=== PATIENT | male | born 1950 | race Caucasian/White ===

== ENCOUNTER 2017-03-25 08:55 | Day surgery (SDC) | payer MEDICARE, OTHER ==
--- NOTE | 2017-03-25 08:21 | HP ---
PROCEDURE DATE: 03/25/17 HISTORY OF PRESENT ILLNESS: Patient is a 66 y/o with history of locally advanced colon cancer status post resection in the past. He has had some other treatments as well. Now, he is not using the port over the several years. It is not functioning optimally anyway and desires removal. PAST MEDICAL HISTORY: Diabetes, he had colon cancer. CURRENT MEDICATIONS: Lisinopril, Januvia, metformin. ALLERGIES: NKDA. PAST SURGICAL HISTORY: Had laparotomy. Resection for advanced colon cancer multiple loops of bowel originally and then later had recurrence and had resection. Also had hernia repair and colonoscopy. Also, had some lung surgery in the past. FAMILY HISTORY: Cancer, diabetes. SOCIAL HISTORY: No smoking or alcohol abuse currently. REVIEW OF SYSTEMS: 12 systems reviewed pertinent for as noted above. No chest pain or palpitations currently. Other systems negative or noncontributory other than above and per admission assessment. PHYSICAL EXAMINATION: GENERAL: No acute distress. HEENT: Sclerae nonicteric. NECK: No JVD. CHEST: Equal excursion. Nonlabored breathing. CVS: Regular rate and rhythm. ABDOMEN: Soft. No peritoneal signs. EXTREMITIES: No significant edema. NEURO: Alert, moving extremities symmetrically. No gross motor deficits noted. IMPRESSION: 1. UNDESIRED PORT. Desires removal as he is no longer using. Feel he is a candidate for removal. Risks and benefits explained in detail, but not limited to, bleeding; infection; small risk of hematoma or seroma formation; general risks of anesthesia or sedation. He also understands in rare cases, the catheter becomes too scarred in to remove and it is possible to tie off the catheter and remove the port if the catheter does not easily pull free. He understands. Will proceed with outpatient Port-a-Cath removal.
[~2017-03-25 08:55] MED LIST: XYLOCAINE 1% HCL 20 ML MDV ONE
[2017-03-25] MEDS ORDERED: VERSED 5 MG/5 ML IV ONE (08:56)
[2017-03-25] MEDS ORDERED: DEMEROL 50 MG IJ ONE (08:56)
[2017-03-25] MEDS ORDERED: Sodium Chloride 0.9% 1000 ML 1,000 ML IV SCH (09:00)
[2017-03-25] MEDS ORDERED: CEFAZOLIN 2 GM-D5W BAG** 2 GM/50 ML ML IV SCH (09:00)
[2017-03-25] MEDS ORDERED: CEFAZOLIN 2 GM-D5W BAG** 2 GM/50 ML ML IV ONE (09:11)
[2017-03-25] MEDS ORDERED: Sodium Chloride 0.9% 1000 ML 1,000 ML ONE (09:12)
[2017-03-25 12:19] VITALS: BP 127/74; PULSE 74; O2SAT 96
--- NOTE | 2017-03-26 08:43 | OP ---
SURGERY DATE/TIME: 03/25/2017 1037 PREOPERATIVE DIAGNOSIS: History of colon cancer and no longer using Port-A-Cath and desires for removal. POSTOPERATIVE DIAGNOSIS: History of colon cancer and no longer using Port-A-Cath and desires for removal. PROCEDURE: Removal of tunnel Port-A-Cath. SURGEON: Dr. Osvaldo Wolfe. ANESTHESIA: IV sedation IV Demerol and Versed, 1% lidocaine local. ESTIMATED BLOOD LOSS: Minimal. INDICATIONS: As noted above. Risks and benefits explained in detail and not limited to and consent obtained. DESCRIPTION OF PROCEDURE AND FINDINGS: The patient is taken to the operating room. Continuous pulse oximetry and blood pressure monitoring. No disagreement with planned procedure. He was incrementally sedated with IV Demerol and Versed. The chest is prepped and draped in usual sterile fashion. 1% lidocaine local infiltrated in field pattern around. Transverse incision made through the old scar. Dissection carried down. Prolene sutures removed. The port and catheter removed intact and passed off. The tunnel track was closed with 3-0 Vicryl. Fibrous pocket closed with 3-0 Vicryl, subcu closed with 3-0 Vicryl, skin closed with 4-0 Vicryl. Steri-Strips and sterile dressing applied. The patient tolerated the procedure well. There were no immediate complications. Findings discussed with the family out in the waiting area.
== END 2017-03-25 11:55 | disposition home or self-care (01) ==
LOC: SDC 08:55
PROVIDERS: ATTEND Surgery
PROC: 0JPT0XZ Removal of Tunneled Vascular Access Device from Trunk Subcutaneous Tissue and Fascia, Open Approach (ICD-10-PCS; principal; 2017-03-25)
DX: Z85.038 Personal history of other malignant neoplasm of large intestine (principal); Z90.49 Acquired absence of other specified parts of digestive tract; E11.9 Type 2 diabetes mellitus without complications; Z79.4 Long term (current) use of insulin; Z79.899 Other long term (current) drug therapy
CPT/HCPCS: 82962; J0690; J2175; J2250

== ENCOUNTER 2018-06-27 06:02 | Day surgery (SDC) | payer MEDICARE, OTHER ==
[~2018-06-27 06:02] MED LIST changes: +Lactated Ringers 1,000 ML IV SCH; -XYLOCAINE 1% HCL 20 ML MDV ONE
[2018-06-27] MEDS ORDERED: Ketamine HCl 50 MG/ML IV ONE (06:03)
[2018-06-27] MEDS ORDERED: DIPRIVAN 200 MG/20 ML IV ONE (06:03)
[2018-06-27 08:51] VITALS: PULSE 92
[2018-06-27 09:01] VITALS: O2SAT 99
--- NOTE | 2018-06-27 09:01 | OP ---
SURGERY DATE/TIME: 06/27/2018 0714 PREOPERATIVE DIAGNOSIS: History of colon cancer, previous right hemicolectomy. POSTOPERATIVE DIAGNOSIS: Mild diverticulosis. Normal colon otherwise status post partial right hemicolectomy. PROCEDURE: Colonoscopy. SURGEON: Dr. Auguste. ANESTHESIA: MAC. Medications given by anesthesia department. HISTORY: The patient is a 68 year-old white male who presents now for surveillance examination. He reports having had colon cancer 20 years ago. He was appraised of the risks of the procedure including the risk of perforation, phlebitis, untoward reaction to medication, bleeding and missed lesions. The patient verbalized his understanding and desired to have the procedure performed. DESCRIPTION OF PROCEDURE: The patient was given the medications by the anesthesia department. He had continuous pulse oximetry, ECG monitoring, intermittent blood pressure monitoring and tidal CO2 monitoring during the examination. He was placed in the left lateral decubitus position. A digital rectal examination was performed and revealed normal anal sphincter tone, no masses and normal prostate. The flexible Olympus pediatric colonoscope was used to intubate the rectum. A view of the colon was developed to the anastomotic site of the right colon. Upon insertion and withdrawal were noted scattered small diverticula to the left colon. No other mucosal lesions being encountered the scope was removed from the patient who tolerated the procedure well and was sent back to OP recovery in good condition. The prep was noted to be fair.
[2018-06-27 09:03] VITALS: BP 123/80
== END 2018-06-27 08:45 | disposition home or self-care (01) ==
LOC: SDC 06:02
PROVIDERS: ATTEND Family Medicine
DX: K57.90 Diverticulosis of intestine, part unspecified, without perforation or abscess without bleeding (principal); Z90.49 Acquired absence of other specified parts of digestive tract; Z85.038 Personal history of other malignant neoplasm of large intestine; I10 Essential (primary) hypertension; E11.9 Type 2 diabetes mellitus without complications
CPT/HCPCS: 82962; 94250; 99100; J2704

== ENCOUNTER 2018-07-10 11:50 | Inpatient (IN) | payer MEDICARE, OTHER ==
[2018-07-10] MEDS ORDERED: Sodium Chloride 0.9% 1000 ML 1,000 ML IV STA ×2 (12:35→13:31)
--- NOTE | 2018-07-10 12:42 | ERPHSYRPT ---
- History of Present Illness Time Seen by Provider: 07/10/18 12:30 Historian: patient Exam Limitations: no limitations Patient Subjective Stated Complaint: pt c/o abd pain off and on x 1 1/2 months. nausea and vomiting. poor appetite. pt reports having a small hard bm yesterday and then 3 days before that Triage Nursing Assessment: abd soft but distended. bs present x4. skin w/d/p. a& o x3. dry mouth. Physician History: 68-year-old white male with history of peripheral neuropathy, diabetes type 2, colorectal cancer, hernia, stomach cancer Patient arrives with complaint of 1 1/2 months of abdominal pain in the lower abdomen also in the right upper quadrant she states she's had some problems with his stools sometimes having constipation. He states that he contacted Dr. Mcghee and was placed on omeprazole but symptoms continued. So he could contacted Dr. Shoaib Tinoco and was told to present to the emergency room to be checked out. Past medical history includes peripheral neuropathy, diabetes type 2, colorectal cancer, hernia, stomach cancer patient apparently has an abdominal aortic aneurysm which is not large enough to operate on Past surgical history includes colon resection hernia repair tonsillectomy vastectomy Timing/Duration: other (1-1/2 months) Activities at Onset: none Quality: cramping Abdominal Pain Onset Location: other (lower abdomen and right upper quadrant) Severity of Pain-Max: moderate Severity of Pain-Current: mild Modifying Factors: Improves With: nothing Associated Symptoms: back, nausea, vomiting, other (constipation), No chest pain , No diaphoresis, No diarrhea, No fever/chills, No fatigue, No headache, No heartburn, No loss of appetite, No neck pain, No rash, No shortness of breath, No syncope, No testicular pain, No weakness Allergies/Adverse Reactions: No Known Drug Allergies Allergy (Verified 06/27/18 06:26) Home Medications: Metformin HCl 500 mg [Glucophage 500 MG] 1,000 mg PO BID 07/10/13 [History ] Sitagliptin Phosphate 50 MG [Januvia 50 MG] 100 mg PO DAILY 10/08/14 [ History] Lisinopril 10 mg [Zestril 10 MG] 20 mg PO DAILY 12/05/15 [History] [place]-3 Fatty Acids/Fish Oil [Fish Oil 1,000 mg Capsule] 1,000 mg PO DAILY 03/25/17 [History] Simvastatin 10 mg [Zocor 10MG] 10 mg PO DAILY 06/27/18 [History] Omeprazole 20 mg PO DAILY 07/10/18 [History] Hx Tetanus, Diphtheria Vaccination/Date Given: Yes () Hx Influenza Vaccination/Date Given: Yes (2017) Hx Pneumococcal Vaccination/Date Given: Yes Immunizations Up to Date: Yes - Review of Systems Constitutional: No Fever, No Chills Eyes: No Symptoms Ears, Nose, & Throat: No Symptoms Respiratory: No Cough, No Dyspnea Cardiac: No Chest Pain, No Edema, No Syncope Abdominal/Gastrointestinal: Abdominal Pain, Nausea, Vomiting, Constipation, No Diarrhea, No Hematemesis, No Hematochezia, No Melena, No Dysphagia, No Appetite Changes Genitourinary Symptoms: No Dysuria Musculoskeletal: No Back Pain, No Neck Pain Skin: No Rash Neurological: No Dizziness, No Focal Weakness, No Sensory Changes Psychological: No Symptoms Endocrine: No Symptoms All Other Systems: Reviewed and Negative - Past Medical History Pertinent Past Medical History: Yes Neurological History: No Pertinent History ENT History: No Pertinent History Cardiac History: Hypertension Respiratory History: No Pertinent History Endocrine Medical History: Diabetes Type II Musculoskeletal History: No Pertinent History GI Medical History: Hernia, Colorectal Cancer History: No Pertinent History Psycho-Social History: No Pertinent History Male Reproductive Disorders: No Pertinent History Other Medical History: states "abdominal aneurysm for years,they just watch it" . dog attack, rabies shots, spot removed from lung - Past Surgical History Past Surgical History: Yes Neuro Surgical History: No Pertinent History Cardiac: No Pertinent History Respiratory: Other Gastrointestinal: Colon Resection, Hernia Repair Genitourinary: No Pertinent History Musculoskeletal: No Pertinent History Male Surgical History: Vasectomy Other Surgical History: T&A as a child,hernia repairs 40 yrs ago in the , colon resection x2, spot removed from lung 2014. States "was cancer,they removed it all". - Social History Smoking Status: Never smoker How long have you smoked: 50 YEARS Exposure to second hand smoke: No Drug Use: none Patient Lives Alone: No Significant Family History: no pertinent family hx - Nursing Vital Signs Nursing Vital Signs: Initial Vital Signs Temperature 97.4 F 07/10/18 12:11 Pulse Rate 122 H 07/10/18 12:11 Respiratory Rate 22 07/10/18 12:11 Blood Pressure 110/69 07/10/18 12:11 O2 Sat by Pulse Oximetry 97 07/10/18 12:11 Pain Scale Pain Intensity 6 - Physical Exam General Appearance: no apparent distress, alert Eye Exam: PERRL/EOMI, eyes nml inspection Ears, Nose, Throat Exam: normal ENT inspection, pharynx normal, moist mucous membranes Neck Exam: normal inspection, non-tender, supple, full range of motion Respiratory Exam: normal breath sounds, lungs clear, No respiratory distress Cardiovascular Exam: regular rate/rhythm, normal heart sounds, capillary refill <2 sec Gastrointestinal/Abdomen Exam: soft, No tenderness, No mass Rectal Exam: normal exam, normal rectal tone, No mass, No black stool, No blood , No tenderness Back Exam: normal inspection, normal range of motion, No CVA tenderness, No vertebral tenderness Extremity Exam: normal inspection, normal range of motion, pelvis stable Neurologic Exam: alert, oriented x 3, cooperative, vocational ed instructor II-XII nml as tested, normal mood/affect, nml cerebellar function, sensation nml, No motor deficits Skin Exam: normal color, warm, dry SpO2 Interpretation: normal (97%) SpO2: 97 Oxygen Delivery: Room Air - Course Nursing assessment & vital signs reviewed: Yes - CT Exams Abdomen/Pelvis CT Interpretation: Discussed w/radiologist (CT abdomen and pelvis: Impression: 1. New incompletely visualized left upper lobe/lingula airspace disease 2. New right lower quadrant marlon-to enteric intussuscepti producing partial obstr suspect bowel wall thickening versus mass as an etiolology. 3.new inferior right lobe liver hypodense lesion. Delayed images demonstrate filling in favoring hemangioma. 4. Interval enlargin AAA and right common iliac artery aneurysm. new mild aortic saccular aneurysm. No free fluid or evidence for active hemorrhage. 5. Stable partial descending colectomy, colonic diverticulosis, and bilateral renal cysts.) Ordered Tests: Active Orders 24 hr Category Date Time Status Accucheck STAT Care 07/10/18 15:31 Active IV Insertion STAT Care 07/10/18 12:35 Active ABDOMEN AND PELVIS W CONTRAST [CT] Stat Exams 07/10/18 14:15 Completed AMYLASE Stat Lab 07/10/18 12:47 Completed CBC W DIFF Stat Lab 07/10/18 12:47 Completed CMP Stat Lab 07/10/18 12:47 Completed LIPASE Stat Lab 07/10/18 12:47 Completed Occult Blood,Stool Other Stat Lab 07/10/18 13:20 Completed UA W/RFX UR CULTURE Stat Lab 07/10/18 13:30 Completed Medication Summary Discontinued Medications Generic Name Dose Route Start Last Admin Trade Name Rudolph PRN Reason Stop Dose Admin Sodium Chloride 1,000 mls @ 999 mls/hr 07/10/18 12:35 07/10/18 13:31 Sodium Chloride 0.9% 1000 Ml IV 07/10/18 13:35 999 mls/hr .Q1H1M STA Administration Sodium Chloride Confirm 07/10/18 13:28 Sodium Chloride 0.9% 1000 Ml Administered 07/10/18 13:29 Dose 1,000 mls @ ud .ROUTE .STK-MED ONE Sodium Chloride 1,000 mls @ 999 mls/hr 07/10/18 13:31 07/10/18 14:43 Sodium Chloride 0.9% 1000 Ml IV 07/10/18 14:31 999 mls/hr .Q1H1M STA Administration Sodium Chloride Confirm 07/10/18 13:39 Sodium Chloride 0.9% 1000 Ml Administered 07/10/18 13:40 Dose 1,000 mls @ ud .ROUTE .STK-MED ONE Morphine Sulfate 4 mg 07/10/18 15:43 07/10/18 15:49 Morphine Sulfate 4 Mg Inj IV 07/10/18 15:44 4 mg STAT ONE Administration Morphine Sulfate Confirm 07/10/18 15:47 Morphine Sulfate 4 Mg Inj Administered 07/10/18 15:48 Dose 4 mg .ROUTE .STK-MED ONE Ondansetron HCl 4 mg 07/10/18 15:54 07/10/18 15:56 Zofran 4 Mg/2 Ml Vial IV 07/10/18 15:55 4 mg STAT ONE Administration Ondansetron HCl Confirm 07/10/18 15:55 Zofran 4 Mg/2 Ml Vial Administered 07/10/18 15:56 Dose 4 mg .ROUTE .STK-MED ONE Lab/Rad Data: Laboratory Result Diagrams 07/10/18 12:47 07/10/18 12:47 Laboratory Results 1207/10/18 07/10/18 Range/Units 13:30 13:20 12:47 WBC (4.0-10.5) K/mm3 RBC (4.1-5.6) M/mm3 Hgb (12.5-18.0) gm/dl Hct (42-50) % MCV (78-100) fl MCH (26-32) pg MCHC (32-36) g/dl RDW (11.5-14.0) % Plt Count (150-450) K/mm3 MPV (6-9.5) fl Gran % (36.0-66.0) % Eos # (Auto) (0-0.5) Absolute Lymphs (auto) (1.0-4.6) Absolute Monos (auto) (0.0-1.3) Lymphocytes % (24.0-44.0) % Monocytes % (0.0-12.0) % Eosinophils % (0.00-5.0) % Basophils % (0.0-0.4) % Absolute Granulocytes (1.4-6.9) Basophils # (0-0.4) Sodium 134 L (137-145) mmol/L Potassium 5.5 H (3.5-5.1) mmol/L Chloride 94 L (98-107) mmol/L Carbon Dioxide 25 (22-30) mmol/L Anion Gap 19.8 H (5-15) MEQ/L BUN 41 H (9-20) mg/dL Creatinine 1.12 (0.66-1.25) mg/dL Estimated GFR > 60.0 ML/MIN Glucose 313 H (74-106) mg/dL Calcium 9.5 (8.4-10.2) mg/dL Total Bilirubin 1.10 (0.2-1.3) mg/dL AST 13 L (17-59) U/L ALT 16 (0-50) U/L Alkaline Phosphatase 93 (38-126) U/L Serum Total Protein 6.9 (6.3-8.2) g/dL Albumin 4.0 (3.5-5.0) g/dL Amylase 62 (30-110) U/L Lipase 26 (23-300) U/L Urine Color KIRK (YELLOW) Urine Appearance SLIGHTLY CLOUDY (CLEAR) Urine pH 5.0 (5-6) Ur Specific [place] 1.031 (1.005-1.025) Urine Protein 30 (Negative) Urine Ketones SMALL (NEGATIVE) Urine Blood NEGATIVE (0-5) Luke/ul Urine Nitrite NEGATIVE (NEGATIVE) Urine Bilirubin NEGATIVE (NEGATIVE) Urine Urobilinogen 2 (0-1) mg/dL Ur Leukocyte Esterase NEGATIVE (NEGATIVE) Urine WBC (Auto) 3-5 (0-5) /HPF Urine RBC (Auto) 0-2 (0-2) /HPF U Epithel Cells (Auto) RARE (FEW) /HPF Urine Bacteria (Auto) RARE (NEGATIVE) /HPF Urine Mucus (Auto) SLIGHT (NEGATIVE) /HPF Urine Culture Reflexed NO (NO) Urine Glucose >=500 (NEGATIVE) mg/dL Stool Occult Blood NEGATIVE (Negative) 07/10/18 Range/Units 12:47 WBC 11.1 H (4.0-10.5) K/mm3 RBC 5.09 (4.1-5.6) M/mm3 Hgb 13.9 (12.5-18.0) gm/dl Hct 44.5 (42-50) % MCV 87.4 (78-100) fl MCH 27.3 (26-32) pg MCHC 31.2 L (32-36) g/dl RDW 14.4 H (11.5-14.0) % Plt Count 270 (150-450) K/mm3 MPV 10.3 H (6-9.5) fl Gran % 79.7 H (36.0-66.0) % Eos # (Auto) 0.01 (0-0.5) Absolute Lymphs (auto) 0.96 L (1.0-4.6) Absolute Monos (auto) 1.26 (0.0-1.3) Lymphocytes % 8.7 L (24.0-44.0) % Monocytes % 11.4 (0.0-12.0) % Eosinophils % 0.1 (0.00-5.0) % Basophils % 0.1 (0.0-0.4) % Absolute Granulocytes 8.81 H (1.4-6.9) Basophils # 0.01 (0-0.4) Sodium (137-145) mmol/L Potassium (3.5-5.1) mmol/L Chloride (98-107) mmol/L Carbon Dioxide (22-30) mmol/L Anion Gap (5-15) MEQ/L BUN (9-20) mg/dL Creatinine (0.66-1.25) mg/dL Estimated GFR ML/MIN Glucose (74-106) mg/dL Calcium (8.4-10.2) mg/dL Total Bilirubin (0.2-1.3) mg/dL AST (17-59) U/L ALT (0-50) U/L Alkaline Phosphatase (38-126) U/L Serum Total Protein (6.3-8.2) g/dL Albumin (3.5-5.0) g/dL Amylase (30-110) U/L Lipase (23-300) U/L Urine Color (YELLOW) Urine Appearance (CLEAR) Urine pH (5-6) Ur Specific [place] (1.005-1.025) Urine Protein (Negative) Urine Ketones (NEGATIVE) Urine Blood (0-5) Luke/ul Urine Nitrite (NEGATIVE) Urine Bilirubin (NEGATIVE) Urine Urobilinogen (0-1) mg/dL Ur Leukocyte Esterase (NEGATIVE) Urine WBC (Auto) (0-5) /HPF Urine RBC (Auto) (0-2) /HPF U Epithel Cells (Auto) (FEW) /HPF Urine Bacteria (Auto) (NEGATIVE) /HPF Urine Mucus (Auto) (NEGATIVE) /HPF Urine Culture Reflexed (NO) Urine Glucose (NEGATIVE) mg/dL Stool Occult Blood (Negative) - Progress Progress: improved Progress Note: 07/10/18 16:14 Patient's case is discussed with Dr. Molina was presentation specialist for Dr. Mcghee. Will place patient on observation provide IV fluids and pain medication. Dr. Molina asked that we obtain a consult with Dr. Villalta this has been obtained and ordered. Will place patient on observation IV fluids pain medications keep patient nothing by mouth. patient was given IV normal saline morphine and Zofran in the emergency room. 07/10/18 16:16 - Departure Time of Disposition: 16:16 Departure Disposition: Observation (Dr. Mcghee) Clinical Impression: Intussusception Abdominal pain Qualifiers: Abdominal location: generalized Qualified Code(s): R10.84 - Generalized abdominal pain Condition: Fair Critical Care Time: No Referrals: MATILDA MCGHEE [Primary Care Provider] - Instructions: Intussusception
[2018-07-10 13:03] LABS: BASOPHIL % 0.1 % (0.0-0.4); Basophil (Absolute #) 0.01 (0-0.4); Eosinophil % 0.1 % (0.00-5.0); Eosinophil (Absolute #) 0.01 (0-0.5); Granulocyte Absolute (ANC) 8.81 (1.4-6.9); Granulocytes % 79.7 % (36.0-66.0); Hematocrit 44.5 % (42-50); Hemoglobin 13.9 gm/dl (12.5-18.0); Lymphocyte (Absolute #) 0.96 (1.0-4.6); Lymphocytes % 8.7 % (24.0-44.0); Mean Cell Volume 87.4 fl (78-100); Mean Corpuscular Hemoglobin 27.3 pg (26-32); Mean Corpuscular Hgb Concent. 31.2 g/dl (32-36); Mean Platelet Volume 10.3 fl (6-9.5); Monocyte (Absolute #) 1.26 (0.0-1.3); Monocytes % 11.4 % (0.0-12.0); Platelet Count 270 K/mm3 (150-450); Red Blood Count 5.09 M/mm3 (4.1-5.6); Red Cell Distribution Width 14.4 % (11.5-14.0); White Blood Count 11.1 K/mm3 (4.0-10.5)
[2018-07-10 13:21] LABS: ALKALINE PHOSPHATASE 93 U/L (38-126); AMYLASE 62 U/L (30-110); ANION GAP 19.8 MEQ/L (5-15); BLOOD UREA NITROGEN 41 mg/dL (9-20); CHLORIDE 94 mmol/L (98-107); Calcium 9.5 mg/dL (8.4-10.2); Carbon Dioxide 25 mmol/L (22-30); Creatinine 1 1.12 mg/dL (0.66-1.25); Glucose 313 mg/dL (74-106); LIPASE 26 U/L (23-300); Potassium 5.5 mmol/L (3.5-5.1); SGOT/AST 13 U/L (17-59); SGPT/ALT 16 U/L (0-50); SODIUM 134 mmol/L (137-145); Total Protein 6.9 g/dL (6.3-8.2)
[2018-07-10] MEDS ORDERED: Sodium Chloride 0.9% 1000 ML 1,000 ML ONE ×2 (13:28→13:39)
[2018-07-10 14:08] LABS: Appearance SLIGHTLY CLOUDY (CLEAR); Bilirubin NEGATIVE (NEGATIVE); Blood NEGATIVE Ery/ul (0-5); Glucose >=500 mg/dL (NEGATIVE); Ketones SMALL (NEGATIVE); Leukocyte Esterase NEGATIVE (NEGATIVE); Nitrite NEGATIVE (NEGATIVE); Protein,Urine Dip 30 (Negative); Specific Gravity 1.031 (1.005-1.025); Urobilinogen 2 mg/dL (0-1)
--- NOTE | 2018-07-10 15:30 | XRAY ---
Indication: Intermittent abdomen pain 1.5 months. Nausea, vomiting, and poor appetite. Cramping and constipation. History GI carcinoma. Multiple contiguous axial images obtained through the abdomen and pelvis using 80 cc Isovue 370 contrast only. Comparison: CT abdomen September 05, 2015. Lung bases demonstrates new incompletely visualized left upper lobe/lingula airspace disease without effusion. Minimal bibasilar fibrosis/scarring. Heart is not enlarged. Noncontrasted stomach is mildly fluid/air distended. Duodenal and jejunal bowel loops are now abnormally fluid distended up to 6 cm to the level of the right lower quadrant where there is a focus of entero to enteric intussusception producing partial obstruction. Suspect bowel wall thickening versus mass as etiology for intussusception. Ascending colon demonstrates partial colectomy with intact anastomosis. Stable descending and sigmoid diverticulosis. No free fluid/air. Inferior right lobe of the liver demonstrates new 3.3 x 2.0 cm hypoattenuation mass that appears to fill in on delayed imaging, suggestive of hemangioma. Stable 1.3 cm right upper renal and tiny left upper renal cortical cyst. Remaining liver, gallbladder, pancreas, spleen, adrenal glands, kidneys, ureters, and bladder appear unremarkable. There remains heavy scattered vascular calcifications. Interval enlarging fusiform distal AAA today measuring 4.5 x 4.5 cm, previously 4.0 x 4.0 cm. New 2.0 x 2.1 cm partially calcified saccular aneurysm emanating from the mid aorta just below the right main renal artery. Also enlarging fusiform aneurysm of the right common iliac artery today 3 cm in diameter, previously 2.7 cm. No pathologic retroperitoneal lymphadenopathy. Osseous structures intact again with mild degenerative changes throughout the spine. Impression: 1. New incompletely visualized left upper lobe/lingula airspace disease. 2. New right lower quadrant entero to enteric intussusception producing partial obstruction. Suspect bowel wall thickening versus mass as etiology. 3. New inferior right lobe liver hypodense lesion. Delayed images demonstrates filling in favoring hemangioma. 4. Interval enlarging distal AAA and right common iliac artery aneurysm. New mid aorta saccular aneurysm. No free fluid or evidence for active hemorrhage. 5. Stable partial ascending colectomy, colonic diverticulosis, and bilateral renal cysts. CT DI 21.23
[2018-07-10] MEDS ORDERED: MORPHINE SULFATE 4 MG INJ IV ONE (15:43)
[2018-07-10] MEDS ORDERED: MORPHINE SULFATE 4 MG INJ ONE (15:47)
[2018-07-10] MEDS ORDERED: Zofran 4 MG/2 ML VIAL IV ONE (15:54)
[2018-07-10] MEDS ORDERED: Zofran 4 MG/2 ML VIAL ONE (15:55)
--- NOTE | 2018-07-10 17:41 | PCM.HP ---
History of Present Illness - Chief Complaint Chief Complaint: abdominal pain Date: 07/10/18 History of Present Illness: is a 68 year old male. He has been having intermittent abdominal pains for the last 6 weeks that will hurt for a few days and then improve for a few days. For the last 3 days it has been more severe not improving not eating or drinking much he has had hard small bm last was 1 day ago after a laxative. He has not had any vomiting or black or bloody stools. He has been coughing with some clear sputum for the last 3 or so days. No fever or chills. No weight loss or night sweats. He called Dr. Ruffin today due to the pain and was told to go to the hospital. - Review of Systems Constitutional: No Fever, No Chills Eyes: No Symptoms Ears, Nose, & Throat: No Symptoms Respiratory: Cough, No Short Of Breath Cardiac: No Chest Pain, No Edema, No Syncope Abdominal/Gastrointestinal: Abdominal Pain, Nausea, Constipation, No Vomiting, No Diarrhea Genitourinary Symptoms: No Dysuria Musculoskeletal: No Back Pain, No Neck Pain Skin: No Rash Neurological: No Dizziness, No Focal Weakness, No Sensory Changes Psychological: No Symptoms Endocrine: No Symptoms Hematologic/Lymphatic: No Symptoms Immunological/Allergic: No Symptoms Medications & Allergies Home Medications: Home Medication List Semmes-3 Fatty Acids/Fish Oil [Fish Oil 1,000 mg Capsule] 1,000 mg PO DAILY 03/25/17 [History Confirmed 07/10/18] Simvastatin 10 mg [Zocor 10MG] 10 mg PO DAILY 06/27/18 [History Confirmed ] Lisinopril 20 mg [Zestril 20 MG] 20 mg PO DAILY 07/10/18 [History Confirmed 07/10/18] Metformin HCl 1,000 mg PO BID 07/10/18 [History Confirmed 07/10/18] Omeprazole 20 mg PO DAILY 07/10/18 [History Confirmed 07/10/18] Sitagliptin Phosphate [Januvia] 100 mg PO DAILY 07/10/18 [History Confirmed ] Allergies/Adverse Reactions: Allergies Allergy/AdvReac Type Severity Reaction Status Date / Time No Known Drug Allergies Allergy Verified 06/27/18 06:26 - Past Medical History Past Medical History: Yes Neurological History: No Pertinent History ENT History: No Pertinent History Cardiac History: Hypertension Respiratory History: Other Endocrine Medical History: Diabetes Type II Musculoskelatal History: No Pertinent History GI Medical History: Hernia, Colorectal Cancer History: No Pertinent History Pyscho-Social History: No Pertinent History Male Reproductive Disorders: No Pertinent History Comment: states "abdominal aneurysm for years,they just watch it". dog attack, rabies shots, spot removed from lung. - Past Surgical History Past Surgical History: Yes Neuro Surgical History: No Pertinent History Cardiac History: No Pertinent History Respiratory Surgery: Other GI Surgical History: Colon Resection, Hernia Repair Genitourinary Surgical Hx: No Pertinent History Musculskeletal Surgical Hx: No Pertinent History Male Surgical History: Vasectomy Other Surgical History: T&A as a child,hernia repairs 40 yrs ago in the , colon resection x2, spot removed from lung 2014. States "was cancer,they removed it all". - Social History Smoking Status: Never smoker How long have you smoked: 50 YEARS Exposure to second hand smoke: No Alcohol: None Drug Use: none Significant Family History: no pertinent family hx - Physical Exam Vital Signs: Vital Signs - 24 hr Temp Pulse Resp BP Pulse Ox 07/10/18 17:14 98.7 F 116 H 20 123/67 94 L 07/10/18 16:35 97 07/10/18 16:01 120 H 18 107/68 95 07/10/18 13:35 120 H 18 97/64 94 L 07/10/18 12:11 97.4 F 122 H 22 110/69 97 General Appearance: no apparent distress, alert Neurologic Exam: alert, oriented x 3, cooperative, normal mood/affect, nml cerebellar function, nml station & gait, sensation nml, No motor deficits Eye Exam: PERRL/EOMI, eyes nml inspection Ears, Nose, Throat Exam: normal ENT inspection, pharynx normal, moist mucous membranes Neck Exam: normal inspection, non-tender, supple, full range of motion Respiratory Exam: normal breath sounds, lungs clear, No respiratory distress Cardiovascular Exam: regular rate/rhythm, normal heart sounds, normal peripheral pulses Gastrointestinal/Abdomen Exam: soft, No normal bowel sounds (hypoactive), No tenderness, No mass Back Exam: normal inspection, normal range of motion, No CVA tenderness, No vertebral tenderness Extremity Exam: normal inspection, normal range of motion, pelvis stable Skin Exam: normal color, warm, dry, No rash Lymphatic Exam: No adenopathy Results - Labs Lab/Micro Results: Accuchecks Accucheck Value: 221 Lab Results-Last 24 Hours 07/10/18 07/10/18 07/10/18 Range/Units 12:47 12:47 13:20 WBC 11.1 H (4.0-10.5) K/mm3 RBC 5.09 (4.1-5.6) M/mm3 Hgb 13.9 (12.5-18.0) gm/dl Hct 44.5 (42-50) % MCV 87.4 (78-100) fl MCH 27.3 (26-32) pg MCHC 31.2 L (32-36) g/dl RDW 14.4 H (11.5-14.0) % Plt Count 270 (150-450) K/mm3 MPV 10.3 H (6-9.5) fl Gran % 79.7 H (36.0-66.0) % Eos # (Auto) 0.01 (0-0.5) Absolute Lymphs (auto) 0.96 L (1.0-4.6) Absolute Monos (auto) 1.26 (0.0-1.3) Lymphocytes % 8.7 L (24.0-44.0) % Monocytes % 11.4 (0.0-12.0) % Eosinophils % 0.1 (0.00-5.0) % Basophils % 0.1 (0.0-0.4) % Absolute Granulocytes 8.81 H (1.4-6.9) Basophils # 0.01 (0-0.4) Sodium 134 L (137-145) mmol/L Potassium 5.5 H (3.5-5.1) mmol/L Chloride 94 L (98-107) mmol/L Carbon Dioxide 25 (22-30) mmol/L Anion Gap 19.8 H (5-15) MEQ/L BUN 41 H (9-20) mg/dL Creatinine 1.12 (0.66-1.25) mg/dL Estimated GFR > 60.0 ML/MIN Glucose 313 H (74-106) mg/dL Calcium 9.5 (8.4-10.2) mg/dL Total Bilirubin 1.10 (0.2-1.3) mg/dL AST 13 L (17-59) U/L ALT 16 (0-50) U/L Alkaline Phosphatase 93 (38-126) U/L Serum Total Protein 6.9 (6.3-8.2) g/dL Albumin 4.0 (3.5-5.0) g/dL Amylase 62 (30-110) U/L Lipase 26 (23-300) U/L Urine Color (YELLOW) Urine Appearance (CLEAR) Urine pH (5-6) Ur Specific Maryneal (1.005-1.025) Urine Protein (Negative) Urine Ketones (NEGATIVE) Urine Blood (0-5) Luke/ul Urine Nitrite (NEGATIVE) Urine Bilirubin (NEGATIVE) Urine Urobilinogen (0-1) mg/dL Ur Leukocyte Esterase (NEGATIVE) Urine WBC (Auto) (0-5) /HPF Urine RBC (Auto) (0-2) /HPF U Epithel Cells (Auto) (FEW) /HPF Urine Bacteria (Auto) (NEGATIVE) /HPF Urine Mucus (Auto) (NEGATIVE) /HPF Urine Culture Reflexed (NO) Urine Glucose (NEGATIVE) mg/dL Stool Occult Blood NEGATIVE (Negative) 07/10/18 Range/Units 13:30 WBC (4.0-10.5) K/mm3 RBC (4.1-5.6) M/mm3 Hgb (12.5-18.0) gm/dl Hct (42-50) % MCV (78-100) fl MCH (26-32) pg MCHC (32-36) g/dl RDW (11.5-14.0) % Plt Count (150-450) K/mm3 MPV (6-9.5) fl Gran % (36.0-66.0) % Eos # (Auto) (0-0.5) Absolute Lymphs (auto) (1.0-4.6) Absolute Monos (auto) (0.0-1.3) Lymphocytes % (24.0-44.0) % Monocytes % (0.0-12.0) % Eosinophils % (0.00-5.0) % Basophils % (0.0-0.4) % Absolute Granulocytes (1.4-6.9) Basophils # (0-0.4) Sodium (137-145) mmol/L Potassium (3.5-5.1) mmol/L Chloride (98-107) mmol/L Carbon Dioxide (22-30) mmol/L Anion Gap (5-15) MEQ/L BUN (9-20) mg/dL Creatinine (0.66-1.25) mg/dL Estimated GFR ML/MIN Glucose (74-106) mg/dL Calcium (8.4-10.2) mg/dL Total Bilirubin (0.2-1.3) mg/dL AST (17-59) U/L ALT (0-50) U/L Alkaline Phosphatase (38-126) U/L Serum Total Protein (6.3-8.2) g/dL Albumin (3.5-5.0) g/dL Amylase (30-110) U/L Lipase (23-300) U/L Urine Color KIRK (YELLOW) Urine Appearance SLIGHTLY CLOUDY (CLEAR) Urine pH 5.0 (5-6) Ur Specific Maryneal 1.031 (1.005-1.025) Urine Protein 30 (Negative) Urine Ketones SMALL (NEGATIVE) Urine Blood NEGATIVE (0-5) Luke/ul Urine Nitrite NEGATIVE (NEGATIVE) Urine Bilirubin NEGATIVE (NEGATIVE) Urine Urobilinogen 2 (0-1) mg/dL Ur Leukocyte Esterase NEGATIVE (NEGATIVE) Urine WBC (Auto) 3-5 (0-5) /HPF Urine RBC (Auto) 0-2 (0-2) /HPF U Epithel Cells (Auto) RARE (FEW) /HPF Urine Bacteria (Auto) RARE (NEGATIVE) /HPF Urine Mucus (Auto) SLIGHT (NEGATIVE) /HPF Urine Culture Reflexed NO (NO) Urine Glucose >=500 (NEGATIVE) mg/dL Stool Occult Blood (Negative) Accuchecks Accucheck Value: 221 - Radiology Impressions Radiology Exams & Impressions: Radiology Procedures Category Date Time Status ABDOMEN AND PELVIS W CONTRAST [CT] Stat Exams 07/10/18 14:15 Completed - Other Procedures and Tests Respiratory Therapy 07/10/18 17:27 EKG ROUTINE Assessment/Plan (1) Intussusception Current Visit: Yes Status: Acute Assessment & Plan: follows with Dr. Ruffin for oncology previous colon resections preformed by Dr. Wolfe at [facility] beginning back in 2013 he believes. he also had a nodule removed from the lung that was metastatic adenocarcinoma he has f/u scans every 6 months with oncology last was about 5 months ago with [facility]. Dr. Sunitha Villalta has evaluated the patient in the ED and has placed him on observation and npo further orders await. will continue iv fluid rehydration he received 2L bolus in ED and at 100 mL/h now repeat lytes in am with his lung lesion partially visualized will order dedicated chest CT to f/u on this and with his coughing for 3 days with this will treat it as lingula pneumonia started unasyn 3g iv q6h The condition and differential diagnosis have been explained to the patient and his spouse holding dvt ppx right now pending surgical consult decisions on surgery vs barium studies Code(s): K56.1 - INTUSSUSCEPTION (2) Partial small bowel obstruction Current Visit: Yes Status: Acute Code(s): K56.600 - PARTIAL INTESTINAL OBSTRUCTION, UNSPECIFIED TO CAUSE (3) History of colon cancer Current Visit: Yes Status: Chronic Code(s): Z85.038 - PERSONAL HISTORY OF MALIGNANT NEOPLASM OF LARGE INTESTINE (4) Lingular pneumonia Current Visit: Yes Status: Acute Code(s): J18.9 - PNEUMONIA, UNSPECIFIED ORGANISM (5) Lung infiltrate on CT Current Visit: Yes Status: Acute Code(s): R91.8 - OTHER NONSPECIFIC ABNORMAL FINDING OF LUNG FIELD (6) Type 2 diabetes mellitus Current Visit: Yes Status: Chronic Assessment & Plan: holding januvia and metformin on sliding scale coverage (7) Essential hypertension Current Visit: Yes Status: Chronic Assessment & Plan: holding lisinopril 20 mg daily Code(s): I10 - ESSENTIAL (PRIMARY) HYPERTENSION
[2018-07-10] MEDS: Sodium Chloride 0.9% 1000 ML 1,000 ML IV SCH (18:02)
[2018-07-10] MEDS: NovoLOG Insulin SQ PRN (18:03)
[2018-07-10] MEDS: Unasyn 3GM / NaCl 100ML 3 GM/100 ML IVPB IV SCH (18:10)
[2018-07-10] MEDS: HOLD METFORMIN PRODUCTS FOR 48 HOURS MC SCH (18:11)
[2018-07-10] MEDS ORDERED: PROTONIX 40 MG IV IV SCH (18:15)
[2018-07-10] MEDS: MORPHINE SULFATE 4 MG INJ IV PRN (20:09)
[2018-07-10] MEDS: Zofran 4 MG/2 ML VIAL IV PRN (23:20)
[2018-07-11] MEDS: Unasyn 3GM / NaCl 100ML 3 GM/100 ML IVPB IV SCH ×4 (00:11→18:58)
[2018-07-11] MEDS: MORPHINE SULFATE 4 MG INJ IV PRN ×4 (05:08→20:35)
[2018-07-11] MEDS: Sodium Chloride 0.9% 1000 ML 1,000 ML IV SCH ×3 (05:13→20:36)
[2018-07-11 05:44] LABS: BASOPHIL % 0.1 % (0.0-0.4); Basophil (Absolute #) 0.01 (0-0.4); Eosinophil % 0.4 % (0.00-5.0); Eosinophil (Absolute #) 0.03 (0-0.5); Granulocyte Absolute (ANC) 5.06 (1.4-6.9); Granulocytes % 69.8 % (36.0-66.0); Hematocrit 39.3 % (42-50); Hemoglobin 12.3 gm/dl (12.5-18.0); Lymphocyte (Absolute #) 1.26 (1.0-4.6); Lymphocytes % 17.4 % (24.0-44.0); Mean Cell Volume 87.9 fl (78-100); Mean Corpuscular Hemoglobin 27.5 pg (26-32); Mean Corpuscular Hgb Concent. 31.3 g/dl (32-36); Mean Platelet Volume 9.6 fl (6-9.5); Monocyte (Absolute #) 0.89 (0.0-1.3); Monocytes % 12.3 % (0.0-12.0); Platelet Count 226 K/mm3 (150-450); Red Blood Count 4.47 M/mm3 (4.1-5.6); Red Cell Distribution Width 14.5 % (11.5-14.0); White Blood Count 7.3 K/mm3 (4.0-10.5)
[2018-07-11 06:25] LABS: ALBUMIN 3.2 g/dL (3.5-5.0); ALKALINE PHOSPHATASE 78 U/L (38-126); ANION GAP 13.4 MEQ/L (5-15); BLOOD UREA NITROGEN 36 mg/dL (9-20); CHLORIDE 103 mmol/L (98-107); Calcium 7.9 mg/dL (8.4-10.2); Carbon Dioxide 22 mmol/L (22-30); Creatinine 1 0.81 mg/dL (0.66-1.25); Glucose 217 mg/dL (74-106); Potassium 4.3 mmol/L (3.5-5.1); SGOT/AST 11 U/L (17-59); SGPT/ALT 13 U/L (0-50); SODIUM 134 mmol/L (137-145); Total Protein 5.7 g/dL (6.3-8.2)
--- NOTE | 2018-07-11 07:46 | CONS ---
CONSULT DATE: 07/10/2018 HISTORY: The patient is seen in the emergency room. The patient is familiar to ourselves. He had a colon resection and stomach resection about three years ago by Dr. Wolfe. He has done well. He has been seen by Dr. Lebron. Dr. Lebron feels he has been in remission. He had some abdominal distention and vomiting. CT scan suggesting there might be a partial intussusception of the small bowel. PHYSICAL EXAMINATION: On physical examination he is fairly soft. He is nontoxic appearing. He was being admitted to the floor by Dr. Auguste. We will see him in consultation. At this time I am not expecting any immediate surgical treatment.
--- NOTE | 2018-07-11 09:09 | PCM.NOTE ---
Date and Time: 07/11/18902 Subjective Assessment: Pt complained to nurse of "12/10" pain last night, then said was 2/10 after pain meds. Was not c/o pain to me. Wants something to drink. Wants to know if he's having surgery and when he can go home. last ate 2d ago. Last vomited last night. Tmax 99.4. Last BM 2d ago. - Review of Systems Constitutional: No Fever Abdominal/Gastrointestinal: Abdominal Pain, Vomiting Objective Exam General Appearance: no apparent distress, alert Neurologic Exam: oriented x 3, cooperative Skin Exam: normal color, warm, dry, No rash Neck Exam: normal inspection, non-tender, No lymphadenopathy Respiratory Exam: normal breath sounds, lungs clear, No crackles/rales, No rhonchi, No wheezing Cardiovascular Exam: regular rate/rhythm, normal heart sounds, No murmur Gastrointestinal/Abdomen Exam: soft, No normal bowel sounds (hypoactive but present), No tenderness, No distention, No mass, No guarding, No rebound Extremity Exam: normal inspection, No pedal edema, No swelling Back Exam: normal inspection, No rash OBJECTIVE DATA Vital Signs: Vital Signs - 24 hr Temp Pulse Resp BP Pulse Ox 07/11/18 07:00 98.6 F 109 H 20 108/66 95 07/11/18 06:15 93 L 07/11/18 03:00 99 F 120 H 20 120/72 92 L 07/10/18 23:00 99.4 F 102 H 18 113/67 95 07/10/18 19:12 98.3 F 110 H 17 102/62 92 L 07/10/18 18:40 93 L 07/10/18 17:43 93 L 07/10/18 17:22 98.7 F 116 H 20 123/67 94 L 07/10/18 17:14 98.7 F 116 H 20 123/67 94 L 07/10/18 16:35 97 07/10/18 16:01 120 H 18 107/68 95 07/10/18 13:35 120 H 18 97/64 94 L 07/10/18 12:11 97.4 F 122 H 22 110/69 97 Pain Assessment - Last Documented Pain Intensity 2 Pain Scale Used 0-10 Pain Scale Intake and Output: Intake & Output 07/08/18 07/09/18 07/10/1818 11:59 11:59 11:59 11:59 Intake Total 1095 Balance 1095 Weight 86.2 kg Lab Results: Accuchecks Date 07/11/18 Date 07/11/18 Date 07/10/18 Date 07/10/18 Time 05:06 Time 02:30 Time 22:27 Time 17:30 Accucheck Value: 184 Accucheck Value: 214 Accucheck Value: 171 Accucheck Value: 227 Accucheck Value: 221 Lab Results-Last 24 Hours 07/10/18 07/10/18 07/10/18 Range/Units 12:36 12:47 12:47 WBC 11.1 H (4.0-10.5) K/mm3 RBC 5.09 (4.1-5.6) M/mm3 Hgb 13.9 (12.5-18.0) gm/dl Hct 44.5 (42-50) % MCV 87.4 (78-100) fl MCH 27.3 (26-32) pg MCHC 31.2 L (32-36) g/dl RDW 14.4 H (11.5-14.0) % Plt Count 270 (150-450) K/mm3 MPV 10.3 H (6-9.5) fl Gran % 79.7 H (36.0-66.0) % Eos # (Auto) 0.01 (0-0.5) Absolute Lymphs (auto) 0.96 L (1.0-4.6) Absolute Monos (auto) 1.26 (0.0-1.3) Lymphocytes % 8.7 L (24.0-44.0) % Monocytes % 11.4 (0.0-12.0) % Eosinophils % 0.1 (0.00-5.0) % Basophils % 0.1 (0.0-0.4) % Absolute Granulocytes 8.81 H (1.4-6.9) Basophils # 0.01 (0-0.4) Sodium 134 L (137-145) mmol/L Potassium 5.5 H (3.5-5.1) mmol/L Chloride 94 L (98-107) mmol/L Carbon Dioxide 25 (22-30) mmol/L Anion Gap 19.8 H (5-15) MEQ/L BUN 41 H (9-20) mg/dL Creatinine 1.12 (0.66-1.25) mg/dL Estimated GFR > 60.0 ML/MIN Glucose 313 H (74-106) mg/dL Hemoglobin A1c 10.01 H (4.5-6.0) % Calcium 9.5 (8.4-10.2) mg/dL Total Bilirubin 1.10 (0.2-1.3) mg/dL AST 13 L (17-59) U/L ALT 16 (0-50) U/L Alkaline Phosphatase 93 (38-126) U/L Serum Total Protein 6.9 (6.3-8.2) g/dL Albumin 4.0 (3.5-5.0) g/dL Amylase 62 (30-110) U/L Lipase 26 (23-300) U/L Urine Color (YELLOW) Urine Appearance (CLEAR) Urine pH (5-6) Ur Specific Cook (1.005-1.025) Urine Protein (Negative) Urine Ketones (NEGATIVE) Urine Blood (0-5) Luke/ul Urine Nitrite (NEGATIVE) Urine Bilirubin (NEGATIVE) Urine Urobilinogen (0-1) mg/dL Ur Leukocyte Esterase (NEGATIVE) Urine WBC (Auto) (0-5) /HPF Urine RBC (Auto) (0-2) /HPF U Epithel Cells (Auto) (FEW) /HPF Urine Bacteria (Auto) (NEGATIVE) /HPF Urine Mucus (Auto) (NEGATIVE) /HPF Urine Culture Reflexed (NO) Urine Glucose (NEGATIVE) mg/dL Stool Occult Blood (Negative) 07/10/18 07/10/18 07/11/18 Range/Units 13:20 13:30 05:30 WBC 7.3 (4.0-10.5) K/mm3 RBC 4.47 (4.1-5.6) M/mm3 Hgb 12.3 L (12.5-18.0) gm/dl Hct 39.3 L (42-50) % MCV 87.9 (78-100) fl MCH 27.5 (26-32) pg MCHC 31.3 L (32-36) g/dl RDW 14.5 H (11.5-14.0) % Plt Count 226 (150-450) K/mm3 MPV 9.6 H (6-9.5) fl Gran % 69.8 H (36.0-66.0) % Eos # (Auto) 0.03 (0-0.5) Absolute Lymphs (auto) 1.26 (1.0-4.6) Absolute Monos (auto) 0.89 (0.0-1.3) Lymphocytes % 17.4 L (24.0-44.0) % Monocytes % 12.3 H (0.0-12.0) % Eosinophils % 0.4 (0.00-5.0) % Basophils % 0.1 (0.0-0.4) % Absolute Granulocytes 5.06 (1.4-6.9) Basophils # 0.01 (0-0.4) Sodium (137-145) mmol/L Potassium (3.5-5.1) mmol/L Chloride (98-107) mmol/L Carbon Dioxide (22-30) mmol/L Anion Gap (5-15) MEQ/L BUN (9-20) mg/dL Creatinine (0.66-1.25) mg/dL Estimated GFR ML/MIN Glucose (74-106) mg/dL Hemoglobin A1c (4.5-6.0) % Calcium (8.4-10.2) mg/dL Total Bilirubin (0.2-1.3) mg/dL AST (17-59) U/L ALT (0-50) U/L Alkaline Phosphatase (38-126) U/L Serum Total Protein (6.3-8.2) g/dL Albumin (3.5-5.0) g/dL Amylase (30-110) U/L Lipase (23-300) U/L Urine Color KIRK (YELLOW) Urine Appearance SLIGHTLY CLOUDY (CLEAR) Urine pH 5.0 (5-6) Ur Specific Cook 1.031 (1.005-1.025) Urine Protein 30 (Negative) Urine Ketones SMALL (NEGATIVE) Urine Blood NEGATIVE (0-5) Luke/ul Urine Nitrite NEGATIVE (NEGATIVE) Urine Bilirubin NEGATIVE (NEGATIVE) Urine Urobilinogen 2 (0-1) mg/dL Ur Leukocyte Esterase NEGATIVE (NEGATIVE) Urine WBC (Auto) 3-5 (0-5) /HPF Urine RBC (Auto) 0-2 (0-2) /HPF U Epithel Cells (Auto) RARE (FEW) /HPF Urine Bacteria (Auto) RARE (NEGATIVE) /HPF Urine Mucus (Auto) SLIGHT (NEGATIVE) /HPF Urine Culture Reflexed NO (NO) Urine Glucose >=500 (NEGATIVE) mg/dL Stool Occult Blood NEGATIVE (Negative) 07/11/18 Range/Units 05:30 WBC (4.0-10.5) K/mm3 RBC (4.1-5.6) M/mm3 Hgb (12.5-18.0) gm/dl Hct (42-50) % MCV (78-100) fl MCH (26-32) pg MCHC (32-36) g/dl RDW (11.5-14.0) % Plt Count (150-450) K/mm3 MPV (6-9.5) fl Gran % (36.0-66.0) % Eos # (Auto) (0-0.5) Absolute Lymphs (auto) (1.0-4.6) Absolute Monos (auto) (0.0-1.3) Lymphocytes % (24.0-44.0) % Monocytes % (0.0-12.0) % Eosinophils % (0.00-5.0) % Basophils % (0.0-0.4) % Absolute Granulocytes (1.4-6.9) Basophils # (0-0.4) Sodium 134 L (137-145) mmol/L Potassium 4.3 D (3.5-5.1) mmol/L Chloride 103 (98-107) mmol/L Carbon Dioxide 22 (22-30) mmol/L Anion Gap 13.4 (5-15) MEQ/L BUN 36 H (9-20) mg/dL Creatinine 0.81 (0.66-1.25) mg/dL Estimated GFR > 60.0 ML/MIN Glucose 217 H (74-106) mg/dL Hemoglobin A1c (4.5-6.0) % Calcium 7.9 L D (8.4-10.2) mg/dL Total Bilirubin 1.00 (0.2-1.3) mg/dL AST 11 L (17-59) U/L ALT 13 (0-50) U/L Alkaline Phosphatase 78 (38-126) U/L Serum Total Protein 5.7 L (6.3-8.2) g/dL Albumin 3.2 L (3.5-5.0) g/dL Amylase (30-110) U/L Lipase (23-300) U/L Urine Color (YELLOW) Urine Appearance (CLEAR) Urine pH (5-6) Ur Specific Cook (1.005-1.025) Urine Protein (Negative) Urine Ketones (NEGATIVE) Urine Blood (0-5) Luke/ul Urine Nitrite (NEGATIVE) Urine Bilirubin (NEGATIVE) Urine Urobilinogen (0-1) mg/dL Ur Leukocyte Esterase (NEGATIVE) Urine WBC (Auto) (0-5) /HPF Urine RBC (Auto) (0-2) /HPF U Epithel Cells (Auto) (FEW) /HPF Urine Bacteria (Auto) (NEGATIVE) /HPF Urine Mucus (Auto) (NEGATIVE) /HPF Urine Culture Reflexed (NO) Urine Glucose (NEGATIVE) mg/dL Stool Occult Blood (Negative) Radiology Exams: Radiology Procedures Category Date Time Status ABDOMEN AND PELVIS W CONTRAST [CT] Stat Exams 07/10/18 14:15 Completed CHEST WITHOUT CONTRAST [CT] Routine Exams 07/10/18 17:32 Taken Assessment/Plan (1) Abdominal pain Current Visit: Yes Status: Acute Qualifiers: Abdominal location: generalized Qualified Code(s): R10.84 - Generalized abdominal pain Assessment & Plan: Surgery consulted but did not order barium study as yet - we have a call out to Dr. Villalta to see if he does want one ordered. He decided pt is nonsurgical at this time so I have ordered lovenox for DVT prophylaxis. Pt is still NPO, but if no study is being done I would start him on CLD. Pt wants milk to drink. Bolus 1L LR as pt's HR around 100. Code(s): R10.9 - UNSPECIFIED ABDOMINAL PAIN (2) Intussusception Current Visit: Yes Status: Acute Code(s): K56.1 - INTUSSUSCEPTION (3) Lingular pneumonia Current Visit: Yes Status: Acute Assessment & Plan: on IV unasyn day #2 Code(s): J18.9 - PNEUMONIA, UNSPECIFIED ORGANISM (4) Essential hypertension Current Visit: Yes Status: Chronic Code(s): I10 - ESSENTIAL (PRIMARY) HYPERTENSION (5) History of colon cancer Current Visit: Yes Status: Chronic Code(s): Z85.038 - PERSONAL HISTORY OF MALIGNANT NEOPLASM OF LARGE INTESTINE (6) Type 2 diabetes mellitus Current Visit: Yes Status: Chronic Qualifiers: Diabetes mellitus terminal operator insulin use: without terminal operator use Diabetes mellitus complication status: without complication Qualified Code(s): E11.9 - Type 2 diabetes mellitus without complications
--- NOTE | 2018-07-11 09:11 | XRAY ---
Indication: Incompletely visualized left lung opacity on same day CT abdomen/pelvis. History metastatic GI carcinoma. Patient reports right lung surgery for mass. Multiple contiguous axial images obtained through the chest without contrast as ordered. Comparison: September 05, 2015. New lingular airspace opacity, partially consolidative in appearance. Previous right lower lobe mass has been surgically excised with now scarring. Minimal left lower lobe scarring. New 12 mm noncalcified nodule in the superior left lower lobe worrisome for metastasis. No effusion. Heart is not enlarged. Previous left Port-A-Cath has been removed. Aorta again mildly arteriosclerotic without aneurysmal dilatation. No pathologic mediastinal lymphadenopathy. Bony thorax intact again with minimal degenerative changes throughout the spine. CT abdomen reported earlier in the day. Impression: 1. New lingular airspace disease as detailed. 2. New left lower lobe noncalcified nodule worrisome for metastasis. CT DI 16.53.
[2018-07-11] MEDS: Lactated Ringers 1,000 ML IV SCH ×4 (11:48→19:55)
[2018-07-11] MEDS: PROTONIX 40 MG IV IV SCH (11:50)
[2018-07-11] MEDS: Zocor 10MG PO SCH (11:52)
[2018-07-11] MEDS: ENOXAPARIN SODIUM SQ SCH (11:53)
[2018-07-11] MEDS: HOLD METFORMIN PRODUCTS FOR 48 HOURS MC SCH (11:58)
[2018-07-11] MEDS: NovoLOG Insulin SQ PRN (12:20)
--- NOTE | 2018-07-11 13:25 | XRAY ---
Indication: Abdomen pain. Intussusception on recent CT exam. History GI carcinoma. Preliminary foam dispenser abdomen demonstrates mild air distended stomach and small bowel loops with right mid abdomen suture material. No free air. Single contrast upper GI exam was performed due to the air distended stomach and bowel loops. Patient ingested a total of approximately 500 cc barium without miss swallow or aspiration. Esophagus is normal in course and caliber without focal abnormality. Barium freely emptied into the stomach.. No hiatal hernia. Contrast and air distended stomach demonstrates smooth contours of the lesser and greater curvature without filling defect or acute ulcerations. Normal gastric emptying. Normal-appearing duodenal sweep. Small bowel follow-through demonstrates antegrade movement of the barium to the level of the hepatic flexure of the colon in 2 hours. The small bowel loops are abnormally distended throughout to the level of the right mid abdomen suture material. Spot compression views at this level reveal a masslike filling defect that I believe corresponds to the CT finding producing partial obstruction. Impression: 1. Single contrast upper GI exam is negative. 2. Small bowel follow-through exam is abnormal. Barium contrast seen to the level of the hepatic flexure of the colon in 2 hours. Diffuse abnormal distended small bowel loops to the level of the right mid abdomen where there is a masslike filling defect producing partial obstruction. I believe this corresponds to the CT finding. 3. Approximately 1.9 minute of fluoroscopy used.
[2018-07-11] MEDS: Zofran 4 MG/2 ML VIAL IV PRN (20:35)
[2018-07-12] MEDS: Unasyn 3GM / NaCl 100ML 3 GM/100 ML IVPB IV SCH ×3 (00:58→13:52)
[2018-07-12] MEDS: MORPHINE SULFATE 4 MG INJ IV PRN ×2 (01:04→06:37)
[2018-07-12] MEDS: Sodium Chloride 0.9% 1000 ML 1,000 ML IV SCH (06:37)
[2018-07-12] MEDS: ENOXAPARIN SODIUM SQ SCH (07:33)
[2018-07-12] MEDS: HOLD METFORMIN PRODUCTS FOR 48 HOURS MC SCH (07:35)
[2018-07-12] MEDS ORDERED: MEFOXIN 2 GM PREMIX** 2 GM/50 ML ML IV SCH (08:00)
[2018-07-12] MEDS ORDERED: Sensorcaine 0.25% 10 ML ONE (08:47)
[2018-07-12] MEDS ORDERED: Lactated Ringers 1,000 ML IV ONE ×3 (08:47→12:02)
[2018-07-12] MEDS ORDERED: Naropin 0.5% 30 ML VIAL IJ ONE (10:07)
[2018-07-12] MEDS ORDERED: DILAUDID 2 MG INJECTION IV ONE (10:07)
[2018-07-12] MEDS ORDERED: BRIDION 200MG/2ML IV ONE (10:07)
[2018-07-12] MEDS ORDERED: TORAdol 30 mg Injection IJ ONE (10:07)
[2018-07-12] MEDS ORDERED: Decadron 4 MG INJ IV ONE (10:07)
[2018-07-12] MEDS ORDERED: Zemuron 100 MG/10 ML IJ ONE (10:07)
[2018-07-12] MEDS ORDERED: SUBLIMAZE 100 MCG/2 ML IV ONE (10:07)
[2018-07-12] MEDS ORDERED: PHENYLEPHRINE HCL IJ ONE (10:07)
[2018-07-12] MEDS ORDERED: LIDOCAINE HCL 2% 100 MG/5 ML IJ ONE (10:07)
[2018-07-12] MEDS ORDERED: Zofran 4 MG/2 ML VIAL IV ONE (10:07)
[2018-07-12] MEDS ORDERED: DIPRIVAN 200 MG/20 ML IV ONE (10:07)
[2018-07-12] MEDS ORDERED: Quelicin Fliptop 200 MG/10 ML IJ ONE (10:07)
[2018-07-12] MEDS: Zocor 10MG PO SCH (11:07)
[2018-07-12] MEDS ORDERED: SUBLIMAZE 100 MCG/2 ML ONE (12:37)
[2018-07-12 13:27] LABS: Appearance SLIGHTLY CLOUDY (CLEAR); Bilirubin NEGATIVE (NEGATIVE); Blood NEGATIVE Ery/ul (0-5); Glucose >=500 mg/dL (NEGATIVE); Ketones SMALL (NEGATIVE); Leukocyte Esterase NEGATIVE (NEGATIVE); Nitrite NEGATIVE (NEGATIVE); Protein,Urine Dip NEGATIVE (Negative); Urobilinogen NEGATIVE mg/dL (0-1)
[2018-07-12] MEDS: PROTONIX 40 MG IV IV SCH (13:30)
--- NOTE | 2018-07-12 13:35 | PCM.NOTE ---
Date and Time: 07/12/18 1330 Subjective Assessment: Pt seen immediately after his return from the recovery room s/p [address] Quintero. unsure the details until the report is dictated, but it appears he had some of his bowel removed and had a bypass with LAD, no ostomy. There was a mass that was not removed as it was too close to the SVC and the AAA. He has an NG in place. In recovery he was tachycardic to the 110s. Was initially complaining of back pain but currently denies pain. Knows he is in the hospital but is somewhat somnolent. His BP was up to 170-180 briefly in recovery but improved without any administration of meds. Objective Exam General Appearance: no apparent distress, other (somewhat somnolent but awakes to voice/touch) Neurologic Exam: cooperative Skin Exam: normal color, warm, dry, No rash Ears, Nose, Throat Exam: other (NG present) Respiratory Exam: normal breath sounds, lungs clear, No crackles/rales, No rhonchi, No wheezing Cardiovascular Exam: regular rate/rhythm, normal heart sounds, No murmur Gastrointestinal/Abdomen Exam: other (deferred; pt immediately post op with binder in place) Extremity Exam: normal inspection, No pedal edema, No swelling (SCDs in place) OBJECTIVE DATA Vital Signs: Vital Signs - 24 hr Temp Pulse Resp BP Pulse Ox 07/12/18 07:48 98.3 F 87 18 121/69 95 07/12/18 07:47 97.9 F 104 H 15 122/76 94 L 07/12/18 03:00 97.9 F 104 H 15 122/76 94 L 07/11/18 23:00 98.3 F 104 H 18 131/72 94 L 07/11/18 22:09 91 L 07/11/18 19:00 98.6 F 116 H 18 131/75 93 L 07/11/18 15:00 98.8 F 111 H 19 128/74 95 Pain Assessment - Last Documented Pain Intensity 6 Pain Scale Used 0-10 Pain Scale Intake and Output: Intake & Output 07/10/18 07/11/18 07/12/18 07/13/18 11:59 11:59 11:59 11:59 Intake Total 1095 3612 Balance 1095 3612 Weight 86.2 kg 87.7 kg Lab Results: Accuchecks Date 07/12/18 Date 07/12/18 Date 07/12/18 Date 07/11/18 Time 07:29 Time 04:00 Time 00:00 Time 20:00 Accucheck Value: 168 Accucheck Value: 166 Accucheck Value: 172 Accucheck Value: 193 Accucheck Value: 143 Lab Results-Last 24 Hours 07/12/18 Range/Units 08:46 Urine Color YELLOW (YELLOW) Urine Appearance SLIGHTLY CLOUDY (CLEAR) Urine pH 5.0 (5-6) Ur Specific [place] 1.030 (1.005-1.025) Urine Protein NEGATIVE (Negative) Urine Ketones SMALL (NEGATIVE) Urine Blood NEGATIVE (0-5) Luke/ul Urine Nitrite NEGATIVE (NEGATIVE) Urine Bilirubin NEGATIVE (NEGATIVE) Urine Urobilinogen NEGATIVE (0-1) mg/dL Ur Leukocyte Esterase NEGATIVE (NEGATIVE) Urine WBC (Auto) 0-2 (0-5) /HPF Urine RBC (Auto) 0-2 (0-2) /HPF U Epithel Cells (Auto) NONE (FEW) /HPF Urine Bacteria (Auto) NONE (NEGATIVE) /HPF Urine Mucus (Auto) SLIGHT (NEGATIVE) /HPF Urine Glucose >=500 (NEGATIVE) mg/dL Radiology Exams: Radiology Procedures Category Date Time Status ABDOMEN AND PELVIS W CONTRAST [CT] Stat Exams 07/10/18 14:15 Completed CHEST WITHOUT CONTRAST [CT] Routine Exams 07/10/18 17:32 Completed UGI W/SMALL BOWEL FOLLOW THRU Urgent Exams 07/11/18 12:37 Completed Assessment/Plan (1) Abdominal mass Current Visit: Yes Status: Acute Qualifiers: Abdominal location: unspecified location Qualified Code(s): R19.00 - Intra- abdominal and pelvic swelling, mass and lump, unspecified site Assessment & Plan: Visualized in surgery; await surgical report then will update Dr. Lebron. Pt is in recovery and stable. POD 0. Code(s): R19.00 - INTRA-ABD AND PELVIC SWELLING, MASS AND LUMP, UNSP SITE (2) Lingular pneumonia Current Visit: Yes Status: Acute Onset Date: ~07/10/18 Assessment & Plan: On Unasyn 3g IV q6h Code(s): J18.9 - PNEUMONIA, UNSPECIFIED ORGANISM (3) Essential hypertension Current Visit: Yes Status: Chronic Code(s): I10 - ESSENTIAL (PRIMARY) HYPERTENSION (4) History of colon cancer Current Visit: Yes Status: Chronic Code(s): Z85.038 - PERSONAL HISTORY OF MALIGNANT NEOPLASM OF LARGE INTESTINE (5) Type 2 diabetes mellitus Current Visit: Yes Status: Chronic Qualifiers: Diabetes mellitus chcf insulin use: without chcf use Diabetes mellitus complication status: without complication Qualified Code(s): E11.9 - Type 2 diabetes mellitus without complications
[2018-07-12] MEDS ORDERED: TYLENOL 325 MG PO PRN (13:46)
[2018-07-12] MEDS ORDERED: FEVERALL 650 MG RC PRN (13:46)
[2018-07-12] MEDS: D5W/0.45NS W/ 20mEq KCl 1000 ML 1,000 ML IV SCH (13:54)
[2018-07-12] MEDS: Morphine PCA 1 MG/ML 30 ML IV PRN ×2 (13:56→20:27)
[2018-07-12] MEDS ORDERED: Zofran 4 MG/2 ML VIAL IVIM PRN (14:00)
[2018-07-12] MEDS: NovoLOG Insulin SQ PRN ×2 (16:47→20:49)
[2018-07-12] MEDS: MEFOXIN 1 Gm/ D5W 50 Ml** 1 G/50 ML ML IV SCH ×2 (17:10→22:45)
[2018-07-12 18:29] LABS: Basophil (Absolute #) 0 (0-0.4); Eosinophil (Absolute #) 0 (0-0.5); Granulocyte Absolute (ANC) 6.04 (1.4-6.9); Granulocytes % 85.2 % (36.0-66.0); Hematocrit 36.7 % (42-50); Hemoglobin 11.4 gm/dl (12.5-18.0); Lymphocyte (Absolute #) 0.43 (1.0-4.6); Lymphocytes % 6.1 % (24.0-44.0); Mean Cell Volume 89.7 fl (78-100); Mean Corpuscular Hgb Concent. 31.1 g/dl (32-36); Monocyte (Absolute #) 0.62 (0.0-1.3); Monocytes % 8.7 % (0.0-12.0); Platelet Count 203 K/mm3 (150-450); Red Blood Count 4.09 M/mm3 (4.1-5.6); Red Cell Distribution Width 14.6 % (11.5-14.0); White Blood Count 7.1 K/mm3 (4.0-10.5)
[2018-07-12 18:31] LABS: Mean Corpuscular Hemoglobin 27.8 pg (26-32)
[2018-07-12 18:50] LABS: ALBUMIN 2.6 g/dL (3.5-5.0); ALKALINE PHOSPHATASE 57 U/L (38-126); ANION GAP 12.2 MEQ/L (5-15); BLOOD UREA NITROGEN 28 mg/dL (9-20); CHLORIDE 106 mmol/L (98-107); Carbon Dioxide 21 mmol/L (22-30); Creatinine 1 0.83 mg/dL (0.66-1.25); Glucose 249 mg/dL (74-106); Potassium 4.3 mmol/L (3.5-5.1); SGOT/AST 19 U/L (17-59); SGPT/ALT 15 U/L (0-50); SODIUM 136 mmol/L (137-145); Total Protein 4.8 g/dL (6.3-8.2)
[2018-07-12 18:53] LABS: Slide Review 1 YES
[2018-07-13] MEDS: NovoLOG Insulin SQ PRN ×5 (00:22→21:30)
[2018-07-13 04:26] LABS: BASOPHIL % 0.1 % (0.0-0.4); Basophil (Absolute #) 0.01 (0-0.4); Eosinophil % 0.2 % (0.00-5.0); Eosinophil (Absolute #) 0.02 (0-0.5); Granulocyte Absolute (ANC) 6.32 (1.4-6.9); Granulocytes % 77.3 % (36.0-66.0); Hemoglobin 11.4 gm/dl (12.5-18.0); Lymphocyte (Absolute #) 1.16 (1.0-4.6); Lymphocytes % 14.2 % (24.0-44.0); Mean Cell Volume 88.7 fl (78-100); Mean Corpuscular Hgb Concent. 31.7 g/dl (32-36); Mean Platelet Volume 10.1 fl (6-9.5); Monocyte (Absolute #) 0.67 (0.0-1.3); Monocytes % 8.2 % (0.0-12.0); Platelet Count 205 K/mm3 (150-450); Red Blood Count 4.06 M/mm3 (4.1-5.6); Red Cell Distribution Width 14.5 % (11.5-14.0); White Blood Count 8.2 K/mm3 (4.0-10.5)
[2018-07-13 04:47] LABS: ALBUMIN 2.3 g/dL (3.5-5.0); ALKALINE PHOSPHATASE 57 U/L (38-126); ANION GAP 8.9 MEQ/L (5-15); BLOOD UREA NITROGEN 22 mg/dL (9-20); CHLORIDE 106 mmol/L (98-107); Calcium 7.3 mg/dL (8.4-10.2); Carbon Dioxide 25 mmol/L (22-30); Creatinine 1 0.88 mg/dL (0.66-1.25); Glucose 208 mg/dL (74-106); Potassium 4.6 mmol/L (3.5-5.1); SGOT/AST 13 U/L (17-59); SGPT/ALT 10 U/L (0-50); SODIUM 136 mmol/L (137-145); Total Protein 4.3 g/dL (6.3-8.2)
[2018-07-13] MEDS: MEFOXIN 1 Gm/ D5W 50 Ml** 1 G/50 ML ML IV SCH ×2 (05:37→12:38)
[2018-07-13] MEDS: PROTONIX 40 MG IV IV SCH (09:02)
[2018-07-13] MEDS: ENOXAPARIN SODIUM SQ SCH (09:02)
[2018-07-13] MEDS: Zocor 10MG PO SCH (09:07)
[2018-07-13] MEDS ORDERED: ENOXAPARIN SODIUM SQ SCH (10:00)
[2018-07-13] MEDS: D5W/0.45NS W/ 20mEq KCl 1000 ML 1,000 ML IV SCH ×2 (11:07→22:35)
--- NOTE | 2018-07-13 11:35 | PCM.NOTE ---
Date and Time: 07/13/18 1130 Subjective Assessment: Pt had a run of 29 beats of V-tach last night while he was sleeping. he was asymptomatic. RN did awaken him and he had EKG, which was non acute, electrolytes were nl, and troponins neg x 3. This morning he really has no complaints. He does have abd pain if he has to cough. NG is in place. He is looking forward to getting up and walking today. - Review of Systems Constitutional: No Fever Cardiac: No Chest Pain Abdominal/Gastrointestinal: Abdominal Pain, No Nausea, No Vomiting Objective Exam General Appearance: no apparent distress, alert Neurologic Exam: oriented x 3, cooperative Skin Exam: normal color, warm, dry, No rash Ears, Nose, Throat Exam: other (NT in place) Respiratory Exam: normal breath sounds, lungs clear, No crackles/rales, No rhonchi, No wheezing Cardiovascular Exam: normal heart sounds, tachycardia, No murmur Gastrointestinal/Abdomen Exam: soft, other (binder in place; dressing in place) , No normal bowel sounds (hypoactive) Extremity Exam: other (SCDs in place), No pedal edema, No swelling Back Exam: normal inspection, No rash OBJECTIVE DATA Vital Signs: Vital Signs - 24 hr Temp Pulse Resp BP Pulse Ox 07/13/18 07:26 93 L 07/13/18 07:00 99.1 F 95 H 18 124/68 90 L 07/13/18 04:27 92 L 07/13/18 03:00 97.5 F 104 H 18 126/64 92 L 07/13/18 00:27 92 L 07/12/18 23:00 98.8 F 65 16 116/68 92 L 07/12/18 21:23 92 L 07/12/18 20:27 92 L 07/12/18 19:45 97.7 F 109 H 18 114/62 92 L 07/12/18 17:56 93 L 07/12/18 16:55 100 H 18 113/68 94 L 07/12/18 15:55 98.8 F 104 H 18 108/59 94 L 07/12/18 15:05 103 H 18 108/61 93 L 07/12/18 14:25 104 H 18 112/66 92 L 07/12/18 13:56 92 L 07/12/18 13:55 107 H 18 118/71 92 L 07/12/18 13:40 107 H 107 H 117/71 91 L 07/12/18 13:25 97.9 F 105 H 18 116/68 94 L Oxygen-Last 24 hours O2 Percentage 2 Liters = 28% O2 Percentage 2 Liters = 28% Pain Assessment - Last Documented Pain Intensity 4 Pain Scale Used 0-10 Pain Scale,FLACC Intake and Output: Intake & Output 07/10/18 07/11/18 07/12/18 07/13/18 11:59 11:59 11:59 11:59 Intake Total 1095 3612 1250 Output Total 2920 Balance 1095 3612 -1670 Weight 86.2 kg 87.7 kg 89.9 kg Lab Results: Accuchecks Date 07/13/18 Date 07/13/18 Date 07/13/18 Date 07/12/18 Date 07/12/18 Time 09:02 Time 04:10 Time 00:00 Time 19:55 Time 16:48 Accucheck Value: 230 Accucheck Value: 208 Accucheck Value: 226 Accucheck Value: 231 Accucheck Value: 268 Lab Results-Last 24 Hours 07/12/18 07/12/18 07/12/18 Range/Units 08:46 18:26 18:26 WBC 7.1 (4.0-10.5) K/mm3 RBC 4.09 L (4.1-5.6) M/mm3 Hgb 11.4 L (12.5-18.0) gm/dl Hct 36.7 L (42-50) % MCV 89.7 (78-100) fl MCH 27.8 (26-32) pg MCHC 31.1 L (32-36) g/dl RDW 14.6 H (11.5-14.0) % Plt Count 203 (150-450) K/mm3 MPV 9.0 (6-9.5) fl Gran % 85.2 H (36.0-66.0) % Eos # (Auto) 0 (0-0.5) Absolute Lymphs (auto) 0.43 L (1.0-4.6) Absolute Monos (auto) 0.62 (0.0-1.3) Lymphocytes % 6.1 L (24.0-44.0) % Monocytes % 8.7 (0.0-12.0) % Eosinophils % 0.0 (0.00-5.0) % Basophils % 0.0 (0.0-0.4) % Absolute Granulocytes 6.04 (1.4-6.9) Basophils # 0 (0-0.4) Sodium 136 L (137-145) mmol/L Potassium 4.3 (3.5-5.1) mmol/L Chloride 106 (98-107) mmol/L Carbon Dioxide 21 L (22-30) mmol/L Anion Gap 12.2 (5-15) MEQ/L BUN 28 H (9-20) mg/dL Creatinine 0.83 (0.66-1.25) mg/dL Estimated GFR > 60.0 ML/MIN Glucose 249 H (74-106) mg/dL Calcium 7.0 L (8.4-10.2) mg/dL Magnesium (1.6-2.3) mg/dL Total Bilirubin 0.80 (0.2-1.3) mg/dL AST 19 (17-59) U/L ALT 15 (0-50) U/L Alkaline Phosphatase 57 (38-126) U/L Troponin I (0.000-0.034) ng/mL Serum Total Protein 4.8 L (6.3-8.2) g/dL Albumin 2.6 L (3.5-5.0) g/dL Urine Color YELLOW (YELLOW) Urine Appearance SLIGHTLY CLOUDY (CLEAR) Urine pH 5.0 (5-6) Ur Specific [place] 1.030 (1.005-1.025) Urine Protein NEGATIVE (Negative) Urine Ketones SMALL (NEGATIVE) Urine Blood NEGATIVE (0-5) Luke/ul Urine Nitrite NEGATIVE (NEGATIVE) Urine Bilirubin NEGATIVE (NEGATIVE) Urine Urobilinogen NEGATIVE (0-1) mg/dL Ur Leukocyte Esterase NEGATIVE (NEGATIVE) Urine WBC (Auto) 0-2 (0-5) /HPF Urine RBC (Auto) 0-2 (0-2) /HPF U Epithel Cells (Auto) NONE (FEW) /HPF Urine Bacteria (Auto) NONE (NEGATIVE) /HPF Urine Mucus (Auto) SLIGHT (NEGATIVE) /HPF Urine Glucose >=500 (NEGATIVE) mg/dL Slides for Path Review YES 07/13/18 07/13/18 07/13/18 Range/Units 04:10 04:10 04:10 WBC 8.2 (4.0-10.5) K/mm3 RBC 4.06 L (4.1-5.6) M/mm3 Hgb 11.4 L (12.5-18.0) gm/dl Hct 36.0 L (42-50) % MCV 88.7 (78-100) fl MCH 28.0 (26-32) pg MCHC 31.7 L (32-36) g/dl RDW 14.5 H (11.5-14.0) % Plt Count 205 (150-450) K/mm3 MPV 10.1 H (6-9.5) fl Gran % 77.3 H (36.0-66.0) % Eos # (Auto) 0.02 (0-0.5) Absolute Lymphs (auto) 1.16 (1.0-4.6) Absolute Monos (auto) 0.67 (0.0-1.3) Lymphocytes % 14.2 L (24.0-44.0) % Monocytes % 8.2 (0.0-12.0) % Eosinophils % 0.2 (0.00-5.0) % Basophils % 0.1 (0.0-0.4) % Absolute Granulocytes 6.32 (1.4-6.9) Basophils # 0.01 (0-0.4) Sodium 136 L (137-145) mmol/L Potassium 4.6 (3.5-5.1) mmol/L Chloride 106 (98-107) mmol/L Carbon Dioxide 25 (22-30) mmol/L Anion Gap 8.9 (5-15) MEQ/L BUN 22 H (9-20) mg/dL Creatinine 0.88 (0.66-1.25) mg/dL Estimated GFR > 60.0 ML/MIN Glucose 208 H (74-106) mg/dL Calcium 7.3 L (8.4-10.2) mg/dL Magnesium 1.6 (1.6-2.3) mg/dL Total Bilirubin 0.70 (0.2-1.3) mg/dL AST 13 L (17-59) U/L ALT 10 (0-50) U/L Alkaline Phosphatase 57 (38-126) U/L Troponin I < 0.012 (0.000-0.034) ng/mL Serum Total Protein 4.3 L (6.3-8.2) g/dL Albumin 2.3 L (3.5-5.0) g/dL Urine Color (YELLOW) Urine Appearance (CLEAR) Urine pH (5-6) Ur Specific [place] (1.005-1.025) Urine Protein (Negative) Urine Ketones (NEGATIVE) Urine Blood (0-5) Luke/ul Urine Nitrite (NEGATIVE) Urine Bilirubin (NEGATIVE) Urine Urobilinogen (0-1) mg/dL Ur Leukocyte Esterase (NEGATIVE) Urine WBC (Auto) (0-5) /HPF Urine RBC (Auto) (0-2) /HPF U Epithel Cells (Auto) (FEW) /HPF Urine Bacteria (Auto) (NEGATIVE) /HPF Urine Mucus (Auto) (NEGATIVE) /HPF Urine Glucose (NEGATIVE) mg/dL Slides for Path Review 07/13/18 07/13/18 Range/Units 06:45 09:45 WBC (4.0-10.5) K/mm3 RBC (4.1-5.6) M/mm3 Hgb (12.5-18.0) gm/dl Hct (42-50) % MCV (78-100) fl MCH (26-32) pg MCHC (32-36) g/dl RDW (11.5-14.0) % Plt Count (150-450) K/mm3 MPV (6-9.5) fl Gran % (36.0-66.0) % Eos # (Auto) (0-0.5) Absolute Lymphs (auto) (1.0-4.6) Absolute Monos (auto) (0.0-1.3) Lymphocytes % (24.0-44.0) % Monocytes % (0.0-12.0) % Eosinophils % (0.00-5.0) % Basophils % (0.0-0.4) % Absolute Granulocytes (1.4-6.9) Basophils # (0-0.4) Sodium (137-145) mmol/L Potassium (3.5-5.1) mmol/L Chloride (98-107) mmol/L Carbon Dioxide (22-30) mmol/L Anion Gap (5-15) MEQ/L BUN (9-20) mg/dL Creatinine (0.66-1.25) mg/dL Estimated GFR ML/MIN Glucose (74-106) mg/dL Calcium (8.4-10.2) mg/dL Magnesium (1.6-2.3) mg/dL Total Bilirubin (0.2-1.3) mg/dL AST (17-59) U/L ALT (0-50) U/L Alkaline Phosphatase (38-126) U/L Troponin I < 0.012 < 0.012 (0.000-0.034) ng/mL Serum Total Protein (6.3-8.2) g/dL Albumin (3.5-5.0) g/dL Urine Color (YELLOW) Urine Appearance (CLEAR) Urine pH (5-6) Ur Specific [place] (1.005-1.025) Urine Protein (Negative) Urine Ketones (NEGATIVE) Urine Blood (0-5) Luke/ul Urine Nitrite (NEGATIVE) Urine Bilirubin (NEGATIVE) Urine Urobilinogen (0-1) mg/dL Ur Leukocyte Esterase (NEGATIVE) Urine WBC (Auto) (0-5) /HPF Urine RBC (Auto) (0-2) /HPF U Epithel Cells (Auto) (FEW) /HPF Urine Bacteria (Auto) (NEGATIVE) /HPF Urine Mucus (Auto) (NEGATIVE) /HPF Urine Glucose (NEGATIVE) mg/dL Slides for Path Review Radiology Exams: Radiology Procedures Category Date Time Status ECHO W/2D AND DOPPLER [US] Routine Exams 17/ Ordered UGI W/SMALL BOWEL FOLLOW THRU Urgent Exams 07/11/18 12:37 Completed Assessment/Plan (1) Ventricular tachycardia Current Visit: Yes Status: Acute Assessment & Plan: I spoke with Dr. Angeles, who advised putting pt on lopressor 2.5mg IV q8h and getting an echo tomorrow. If his EF is depressed, that is more concerning. Also would be concerned about sleep apnea. Code(s): I47.2 - VENTRICULAR TACHYCARDIA (2) S/P colon resection Current Visit: Yes Status: Acute Assessment & Plan: POD #1. Clinically, he looks great. Will get up and walk today and may be able to get the NG tube out tomorrow. Per Dr. Quintero, thank you. Code(s): Z90.49 - ACQUIRED ABSENCE OF OTHER SPECIFIED PARTS OF DIGESTIVE TRACT (3) Abdominal mass Current Visit: Yes Status: Acute Qualifiers: Abdominal location: unspecified location Qualified Code(s): R19.00 - Intra- abdominal and pelvic swelling, mass and lump, unspecified site Assessment & Plan: Note from surgery is still pending, but per verbal reports there was a mass too near the aortic aneurism to remove. I don't know if this has been discussed with the patient, and I don't feel I have enough information currently to discuss it with him. Code(s): R19.00 - INTRA-ABD AND PELVIC SWELLING, MASS AND LUMP, UNSP SITE (4) Lingular pneumonia Current Visit: Yes Status: Acute Onset Date: ~07/10/18 Assessment & Plan: on Unasyn q6h, day #4. Code(s): J18.9 - PNEUMONIA, UNSPECIFIED ORGANISM (5) Essential hypertension Current Visit: Yes Status: Chronic Assessment & Plan: BP doing very well here, Mostly 120s, some 110s systolic. 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
[2018-07-13] MEDS: Morphine PCA 1 MG/ML 30 ML IV PRN (11:59)
[2018-07-13] MEDS: LOPRESSOR 5 MG/5 ML INJECTION IV SCH ×2 (12:08→21:25)
[2018-07-13] MEDS ORDERED: MORPHINE SULFATE 10 MG/ML IV ONE (12:20)
[2018-07-14] MEDS: LOPRESSOR 5 MG/5 ML INJECTION IV SCH ×3 (06:05→21:31)
[2018-07-14 06:08] LABS: BASOPHIL % 0.1 % (0.0-0.4); Basophil (Absolute #) 0.01 (0-0.4); Eosinophil % 1.5 % (0.00-5.0); Eosinophil (Absolute #) 0.13 (0-0.5); Granulocyte Absolute (ANC) 6.64 (1.4-6.9); Granulocytes % 79.2 % (36.0-66.0); Hematocrit 32.1 % (42-50); Hemoglobin 9.9 gm/dl (12.5-18.0); Lymphocyte (Absolute #) 0.88 (1.0-4.6); Lymphocytes % 10.5 % (24.0-44.0); Mean Cell Volume 89.4 fl (78-100); Mean Corpuscular Hgb Concent. 30.8 g/dl (32-36); Mean Platelet Volume 10.4 fl (6-9.5); Monocyte (Absolute #) 0.73 (0.0-1.3); Monocytes % 8.7 % (0.0-12.0); Platelet Count 202 K/mm3 (150-450); Red Blood Count 3.59 M/mm3 (4.1-5.6); Red Cell Distribution Width 14.6 % (11.5-14.0); White Blood Count 8.4 K/mm3 (4.0-10.5)
[2018-07-14 06:09] LABS: Mean Corpuscular Hemoglobin 27.5 pg (26-32)
[2018-07-14 06:18] LABS: ALBUMIN 2.4 g/dL (3.5-5.0); ALKALINE PHOSPHATASE 61 U/L (38-126); ANION GAP 12.5 MEQ/L (5-15); BLOOD UREA NITROGEN 13 mg/dL (9-20); CHLORIDE 105 mmol/L (98-107); Calcium 7.9 mg/dL (8.4-10.2); Carbon Dioxide 24 mmol/L (22-30); Creatinine 1 0.76 mg/dL (0.66-1.25); Glucose 191 mg/dL (74-106); Potassium 4.9 mmol/L (3.5-5.1); SGOT/AST 14 U/L (17-59); SGPT/ALT 10 U/L (0-50); SODIUM 136 mmol/L (137-145); Total Protein 4.8 g/dL (6.3-8.2)
[2018-07-14] MEDS: D5W/0.45NS W/ 20mEq KCl 1000 ML 1,000 ML IV SCH ×2 (08:10→18:12)
--- NOTE | 2018-07-14 10:40 | OP ---
SURGERY DATE/TIME: 07/12/2018 0840 PREOPERATIVE DIAGNOSIS: History of recurrent stage IV colon cancer with small bowel obstruction. POSTOPERATIVE DIAGNOSIS: History of recurrent stage IV colon cancer with small bowel obstruction (unresectable right abdomen tumor). PROCEDURES: 1) Exploratory laparotomy extensive lysis of adhesions (added three hours to the procedure). 2) Entero-ostomy (small bowel to small bowel bypass anastomosis). SURGEON: Dr. Osvaldo Wolfe. ANESTHESIA: General. ESTIMATED BLOOD LOSS: Less than 100 cc. INDICATIONS: As noted above. Risks and benefits explained in detail preoperatively with the patient in detail this morning. He had been seen by Dr. Villalta over the past day or two. He had what seemed to be persistent tumor and persistent partial obstruction, persistent dilated bowel. Dr. Villalta that he is a surgical candidate. I discussed again with the patient. As he had not been doing well he preferred to go ahead and proceed with laparotomy. He had been explained the risks and benefits of the procedure in detail but not limited to preoperatively bleeding or infection, risk of wound complications, hernia or dehiscence, risk of bowel leak or fistula formation possibly requiring other procedures, possibility this not being resectable may require bypass or ostomy with risk of anastomotic leak, fistula formation, abscess possibly requiring other procedures, ongoing morbidity/mortality, general risk of anesthesia, deep venous thrombosis, pulmonary embolism, pneumonia, perioperative risk of aches, pains, bloating, ileus or obstruction, risk of deep venous thrombosis, pulmonary embolism, pneumonia, anesthesia, risk of cardiopulmonary event. 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 As well as risk of ruptured aneurysm intraoperative which could very well be a fatal event. General risk of anesthesia. General risk of aches and pains but not limited to. He understands all the above and prefers to go ahead and proceed. He understands the alternative of doing nothing and eventually perforate the bowel. He understood all the above but not limited to and informed consent had been obtained. DESCRIPTION OF PROCEDURE AND FINDINGS: The patient is taken to the operating room. General anesthesia induced. Abdomen prepped and draped in usual sterile fashion. After official time out and no disagreement with planned procedure, a midline incision made through prior laparotomy incision and proceeded slow careful lysis of adhesions taking off omental and small bowel adhesions off the anterior abdominal wall. Slow and careful lysis of adhesions accomplished from the ligament of Treitz down to the right side of the abdomen where he was noted to have very distended bowel going down and around. He had multiple loops concreted over to this right abdomen where the tumor mass involving the bowel was noted. It was felt this area was obstructing point, there was more distal small bowel and residual ileum up to the transverse colon. Small bowel transverse colon anastomosis site appeared to be decompressed and not dilated like the proximal bowel. Unfortunately this bowel and tumor mass was frozen to the retroperitoneum. It was felt this was not safely resectable particularly given his large iliac aneurysm and proximity to the cava. It was felt that this was not safely resectable and was not resectable for cure. Therefore it had taken three to three and a half hours to free up all of the adhesions. It was felt the safest next best option would be to do a bypass. Therefore the dilated and proximal small bowel in the right lower quadrant was then laid aside the normal caliber distal small bowel downstream from a prior small bowel anastomotic site, some yadira were noted which was next to the obstructing mass. It required [id number] anastomosis created with EndoGIA stapler fired both directions to avoid any constriction on the distal part of the small bowel to allow for top off of any fluid/mucous collections. The stump was then closed with TA-60 stapler and nice viable healthy tension-free bowel. There was no mesenteric defect to close. The staple line was then accomplished transversely and was closed with running 3-0 PDS for hemostasis. Good hemostasis was noted. Anastomosis was nice and viable in tension-free manner. It should be noted that prior to creating this anastomosis and firing the staplers, proximal and distal small bowel had been suctioned as free as possible with aide of NG on suction decompressing as well as possible. This was difficult given the thick nature and limited size of NG tube. I felt this created more room to allow for closure at the end. Once the anastomosis was completed copious amount of irrigation irrigating until clear. Lap pads removed. ZAK drain placed along the right lower quadrant lateral without direct communication with the anastomosis itself secured with PDS suture placed to bulb suction. Copious amount of irrigation irrigating as clear as possible. Once this was accomplished the protector had been placed. Gloves and instruments were changed. Fascia closed with running sequential loop 0 PDS. The suture end tacked down with 3-0 Vicryl. The wound is irrigated out. Copious amount of sterile saline. Skin stapled with some Iodoform placed in between given this was not prepped bowel. Patient tolerated the procedure as well as possible. Tap blocks performed by anesthesia. He is given sterile dressing and abdominal binder. Transferred to the recovery room in stable condition. Findings discussed with the family out in the waiting area.
--- NOTE | 2018-07-14 11:05 | CONS ---
CONSULT DATE: 07/12/2018 REASON FOR CONSULT: Bowel obstruction. HISTORY: The patient had a major resection three or four years ago. He had at least two major surgeries. He really has done very well despite having quite substantial cancer at that time. He did have a lot of bowel removed. He did have diarrhea up to about four months ago which it just settled and here in the last couple of days he has been obstipated to the point of obstruction. He did have a small bowel follow through and it did go to hepatic flexure in two hours. He had a full liquid diet. His milk has not come through yet. His abdomen is just mildly distended, clearly very soft. It is certainly not acute. The patient had consultation with his oncologist, Dr. Lebron, who thinks he is doing fairly well in general with this but this probably will be recurrent and probably will not go away without intervention. IMPRESSION AND PLAN: At this time partial obstruction and almost certainly from tumor. He does not have much residual bowel. A laparotomy has probably a 60 to 70% chance of improving this situation. There is 30 to 40% chance that laparotomy only with just visual inspection and not being able to do anything is a possibility. There is possibility that there may be some substantial bowel resection again at laparotomy and the patient does not have much and this would create a short gut syndrome. There is a possibility that a simple bypass is possible and effective. He is going to see how he feels Saturday morning. Dr. Wolfe had done his previous interventions and is orthodontic technician this weekend and will be checking on his status.
[2018-07-14] MEDS: PROTONIX 40 MG IV IV SCH (11:54)
[2018-07-14] MEDS: Zocor 10MG PO SCH (11:54)
[2018-07-14] MEDS: ENOXAPARIN SODIUM SQ SCH (11:55)
[2018-07-14] MEDS: NovoLOG Insulin SQ PRN (14:22)
[2018-07-14] MEDS: Morphine PCA 1 MG/ML 30 ML IV PRN (17:23)
[2018-07-15] MEDS: NovoLOG Insulin SQ PRN ×4 (00:55→16:54)
[2018-07-15] MEDS: D5W/0.45NS W/ 20mEq KCl 1000 ML 1,000 ML IV SCH ×2 (03:32→14:36)
[2018-07-15] MEDS: LOPRESSOR 5 MG/5 ML INJECTION IV SCH ×2 (05:29→16:04)
[2018-07-15 06:19] LABS: ALBUMIN 2.4 g/dL (3.5-5.0); ALKALINE PHOSPHATASE 61 U/L (38-126); ANION GAP 11.1 MEQ/L (5-15); BLOOD UREA NITROGEN 10 mg/dL (9-20); CHLORIDE 102 mmol/L (98-107); Carbon Dioxide 24 mmol/L (22-30); Creatinine 1 0.66 mg/dL (0.66-1.25); Glucose 185 mg/dL (74-106); Potassium 3.8 mmol/L (3.5-5.1); SGOT/AST 15 U/L (17-59); SGPT/ALT 12 U/L (0-50); SODIUM 133 mmol/L (137-145); Total Protein 4.9 g/dL (6.3-8.2)
[2018-07-15 06:43] LABS: BASOPHIL % 0.1 % (0.0-0.4); Basophil (Absolute #) 0.01 (0-0.4); Eosinophil % 2.3 % (0.00-5.0); Eosinophil (Absolute #) 0.16 (0-0.5); Granulocyte Absolute (ANC) 5.42 (1.4-6.9); Granulocytes % 78.8 % (36.0-66.0); Hematocrit 30.5 % (42-50); Hemoglobin 9.6 gm/dl (12.5-18.0); Lymphocyte (Absolute #) 0.83 (1.0-4.6); Mean Cell Volume 87.9 fl (78-100); Mean Corpuscular Hgb Concent. 31.5 g/dl (32-36); Mean Platelet Volume 10.5 fl (6-9.5); Monocyte (Absolute #) 0.47 (0.0-1.3); Monocytes % 6.8 % (0.0-12.0); Platelet Count 188 K/mm3 (150-450); Red Blood Count 3.47 M/mm3 (4.1-5.6); Red Cell Distribution Width 14.5 % (11.5-14.0); White Blood Count 6.9 K/mm3 (4.0-10.5)
[2018-07-15 06:45] LABS: Mean Corpuscular Hemoglobin 27.6 pg (26-32)
[2018-07-15] MEDS ORDERED: MORPHINE SULFATE 4 MG INJ IV PRN (07:41)
[2018-07-15] MEDS: ENOXAPARIN SODIUM SQ SCH (10:04)
[2018-07-15] MEDS: PROTONIX 40 MG IV IV SCH (10:05)
[2018-07-15] MEDS: Zocor 10MG PO SCH (10:05)
[2018-07-15] MEDS: Lopressor 25MG Tab PO SCH ×2 (15:59→21:49)
[2018-07-15] MEDS: NORCO 5/325 MG PO PRN (17:33)
[2018-07-16] MEDS: NORCO 5/325 MG PO PRN ×5 (00:26→22:41)
[2018-07-16] MEDS: D5W/0.45NS W/ 20mEq KCl 1000 ML 1,000 ML IV SCH ×3 (00:26→20:56)
[2018-07-16 05:57] LABS: Hematocrit 32.1 % (42-50); Hemoglobin 10.2 gm/dl (12.5-18.0); Mean Cell Volume 86.8 fl (78-100); Mean Corpuscular Hgb Concent. 31.8 g/dl (32-36); Mean Platelet Volume 10.3 fl (6-9.5); Platelet Count 210 K/mm3 (150-450); Red Cell Distribution Width 14.2 % (11.5-14.0); White Blood Count 6.4 K/mm3 (4.0-10.5)
[2018-07-16 06:26] LABS: ALBUMIN 2.5 g/dL (3.5-5.0); ALKALINE PHOSPHATASE 62 U/L (38-126); ANION GAP 11.2 MEQ/L (5-15); BLOOD UREA NITROGEN 7 mg/dL (9-20); CHLORIDE 102 mmol/L (98-107); Calcium 8.2 mg/dL (8.4-10.2); Carbon Dioxide 24 mmol/L (22-30); Glucose 209 mg/dL (74-106); Potassium 4.1 mmol/L (3.5-5.1); SGOT/AST 16 U/L (17-59); SGPT/ALT 14 U/L (0-50); SODIUM 133 mmol/L (137-145); Total Protein 5.1 g/dL (6.3-8.2)
[2018-07-16 06:42] LABS: Mean Corpuscular Hemoglobin 27.5 pg (26-32)
[2018-07-16 07:20] LABS: Eosinophil 1 % (0.00-3.0); Lymphocytes 10 % (24-44); Monocyte 4 % (0.0-12.0); Neutrophils 85 % (36.-66.); Platelet Estimate NORMAL (NORMAL); Total Cells Counted 100
[2018-07-16 07:21] LABS: ANISOCYTOSIS 1+; Poikilocytosis 1+
[2018-07-16 07:25] LABS: Toxic Granulation 1+
[2018-07-16] MEDS: NovoLOG Insulin SQ PRN ×4 (08:16→22:16)
--- NOTE | 2018-07-16 09:03 | ECHO ---
DATE OF PROCEDURE: 07/14/2018 CLINICAL INFORMATION: Ventricular tachycardia. The M-mode 2D, and Doppler echocardiogram including color flow Doppler shows left ventricle is normal in size at 5.5 cm. There is no apical thrombus present. The septal wall thickness is 1.1 cm. The left ventricular posterior wall thickness is increased at 1.6 cm. The left ventricular ejection fraction is calculated to be 53%. There is normal contractility of the left ventricle. The right ventricle is normal in size and function. The left atrium is normal at 3.1 cm. The interatrial septum is intact. The right atrium is normal. The aortic valve opens well. The mitral valve is normal. There is mild mitral regurgitation. The mitral valve E to A inflow velocity ratio is 0.8 consistent with impaired left ventricular relaxation. There is no apical thrombus in the left ventricle. There is mild tricuspid regurgitation. The right ventricular systolic pressure is normal at 21 mm of [place]. The pulmonic valve is not well visualized. There is no pericardial effusion present. IMPRESSION: 1) NORMAL CONTRACTILITY OF THE LEFT VENTRICLE. 2) MODERATE ASYMMETRIC LEFT VENTRICULAR HYPERTROPHY. 3) IMPAIRMENT OF LEFT VENTRICULAR RELAXATION. 4) MILD MITRAL REGURGITATION. 5) MILD TRICUSPID REGURGITATION. 6) NORMAL RIGHT VENTRICULAR SYSTOLIC PRESSURE.
[2018-07-16] MEDS: PROTONIX 40 MG IV IV SCH (10:17)
[2018-07-16] MEDS: Zocor 10MG PO SCH (10:17)
[2018-07-16] MEDS: ENOXAPARIN SODIUM SQ SCH (10:17)
[2018-07-16] MEDS: Zestril 20 MG PO SCH (10:17)
[2018-07-16] MEDS: Lopressor 25MG Tab PO SCH ×2 (10:17→22:16)
[2018-07-17] MEDS: NovoLOG Insulin SQ PRN ×2 (00:55→10:17)
[2018-07-17] MEDS: NORCO 5/325 MG PO PRN ×2 (06:16→10:17)
[2018-07-17] MEDS: D5W/0.45NS W/ 20mEq KCl 1000 ML 1,000 ML IV SCH (06:31)
[2018-07-17 08:33] VITALS: BP 160/75; PULSE 77; O2SAT 94
--- NOTE | 2018-07-17 09:19 | DS ---
DISCHARGE DIAGNOSES: 1) INTUSSUSCEPTION. 2) HISTORY OF COLON CANCER. HOSPITAL COURSE: The patient is a 68 year-old white male who began having problems with abdominal pain and came into the emergency room and was found to have intussusception. We attempted to treat it conservatively initially. However the surgeon thought it was necessary to do resection. There was tumor present which apparently caused the intussusception. The patient has done remarkably well postoperatively. He is able to return to a regular diet. He is taking minimal pain medication. He took Corona twice on 07/16/2018. He is back on a regular diet. He does have a ZAK drain and it is draining serosanguineous fluid presently. Otherwise his vital signs have been stable. He is in good spirits and in good health relatively presently. He is being discharged home with instructions to follow up with surgeon, follow up in the next week with myself again as well as his oncologist. He will be given a prescription for Corona. He did have a run of non-sustained ventricular tachycardia (VT) for which he was placed on metoprolol for and he has been in good shape since that time. The patient will be discharged home on his other usual home medications including lisinopril 10 mg a day, metformin 500 mg b.i.d., Januvia 100 mg daily, Simvastatin 10 mg a day, omeprazole 20 mg a day.
[2018-07-17] MEDS: ENOXAPARIN SODIUM SQ SCH (10:16)
[2018-07-17] MEDS: Zestril 20 MG PO SCH (10:17)
[2018-07-17] MEDS: PROTONIX 40 MG IV IV SCH (10:17)
[2018-07-17] MEDS: Lopressor 25MG Tab PO SCH (10:17)
[2018-07-17] MEDS: Zocor 10MG PO SCH (10:17)
--- NOTE | 2018-07-17 10:54 | PCM.DCORD ---
- Discharge Discharge Date: 07/17/18 Prescriptions: New Metoprolol Tartrate 25 mg [Lopressor 25MG Tab] 25 mg PO BID 30 Days # 60 tab Continue [place]-3 Fatty Acids/Fish Oil [Fish Oil 1,000 mg Capsule] 1,000 mg PO DAILY Simvastatin 10 mg [Zocor 10MG] 10 mg PO DAILY Omeprazole 20 mg PO DAILY Metformin HCl 1,000 mg PO BID Lisinopril 20 mg [Zestril 20 MG] 20 mg PO DAILY Sitagliptin Phosphate [Januvia] 100 mg PO DAILY Follow up with: MATILDA MCGHEE [Primary Care Provider] - 07/24/18 2:15 pm WALTER RILEY [COURTESY STAFF] - 07/23/18 10:55 am (at [place] [facility] )
== END 2018-07-17 11:40 | disposition home or self-care (01) | DRG 329 ==
LOC: ED 11:50 → MED SURG 17:03 → OBSVTOIN 18:07 → MED SURG 07-12 12:37
PROVIDERS: ADMIT Family Medicine; ATTEND Family Medicine
PROC: 0DN80ZZ Release Small Intestine, Open Approach (ICD-10-PCS; principal; 2018-07-12)
PROC: 0D1B0ZL Bypass Ileum to Transverse Colon, Open Approach (ICD-10-PCS; 2018-07-12)
DX: K56.1 Intussusception (principal); J18.9 Pneumonia, unspecified organism; I47.2 Ventricular tachycardia; R10.84 Generalized abdominal pain; I71.4 Abdominal aortic aneurysm, without rupture; Z90.49 Acquired absence of other specified parts of digestive tract; K57.90 Diverticulosis of intestine, part unspecified, without perforation or abscess without bleeding; I10 Essential (primary) hypertension; E11.9 Type 2 diabetes mellitus without complications; K56.600 Partial intestinal obstruction, unspecified as to cause; R91.8 Other nonspecific abnormal finding of lung field; K56.51 Intestinal adhesions [bands], with partial obstruction; R19.00 Intra-abdominal and pelvic swelling, mass and lump, unspecified site; Z79.4 Long term (current) use of insulin; Z79.899 Other long term (current) drug therapy; G62.9 Polyneuropathy, unspecified; Z85.038 Personal history of other malignant neoplasm of large intestine; K59.00 Constipation, unspecified
CPT/HCPCS: 36000; 36415; 64488; 71250; 74177; 74249; 76937; 76942; 80053; 81001; 82150; 82272; 82962; 83036; 83690; 83735; 84484; 85025; 87086; 88305; 88309; 93005; 93306; 94010; 94760; 94762; 96360; 96375; 99100; 99140; 99285; J0295; J0330; J0694; J1100; J1170; J1650; J1885; J2270; J2370; J2405; J2704; J2795; J3010; L0625; A9270-GY

== ENCOUNTER 2020-02-19 05:52 | Day surgery (SDC) | payer MEDICARE, OTHER ==
[2020-02-19] MEDS ORDERED: Lactated Ringers 1,000 ML IV SCH (06:30)
[2020-02-19] MEDS ORDERED: DIPRIVAN 200 MG/20 ML IV ONE (07:01)
--- NOTE | 2020-02-19 08:31 | OP ---
SURGERY DATE/TIME: 02/19/2020 0700 PREOPERATIVE DIAGNOSIS: History of colon cancer. POSTOPERATIVE DIAGNOSIS: Normal colon status post right hemicolectomy. PROCEDURE: Colonoscopy. SURGEON: Dr. Auguste. ANESTHESIA: Medications were given by the anesthesia department. HISTORY: The patient is a 69 year old white male patient who had a history of colon cancer and he had a right hemicolectomy performed. The patient has been several years since his last examination. He reports at least five. The patient is felt the need to have endoscopic evaluation and appraised of the risks of the procedure including the risk of perforation, phlebitis, untoward reaction to medication, bleeding, missed lesions. The patient verbalized his understanding and desired to have the procedure performed. DESCRIPTION OF PROCEDURE: The patient was given the medications by the anesthesia department. He had continuous pulse oximetry, ECG monitoring, intermittent blood pressure monitoring and tidal CO2 monitoring during the examination. He was placed in the left lateral decubitus position. A digital rectal examination was performed and revealed normal anal sphincter tone, no masses and normal prostate. The flexible Olympus pediatric colonoscope was used to intubate the rectum. A view of the colon was developed sequentially to the anastomotic site. Upon insertion and withdrawal, including a retroflex view in the rectum revealed no mucosal lesions. However the prep was noted to be poor. We were able to see the majority of the colon. The stool was mostly liquid. The scope was removed from the patient who tolerated the procedure well and was sent back to OP recovery in good condition.
[2020-02-19 08:36] VITALS: O2SAT 97
[2020-02-19] MEDS ORDERED: Sodium Chloride 0.9% 10 ML FLUSH Syringe PICC PRN (08:36)
[2020-02-19 08:41] VITALS: BP 132/78; PULSE 82
== END 2020-02-19 08:30 | disposition home or self-care (01) ==
LOC: SDC 05:52
PROVIDERS: ATTEND Family Medicine
DX: Z08 Encounter for follow-up examination after completed treatment for malignant neoplasm (principal); Z85.038 Personal history of other malignant neoplasm of large intestine; Z90.49 Acquired absence of other specified parts of digestive tract; E11.9 Type 2 diabetes mellitus without complications; I10 Essential (primary) hypertension; Z79.899 Other long term (current) drug therapy
CPT/HCPCS: 82962; 99100; J1642; J2704

== ENCOUNTER 2022-01-01 09:37 | Emergency (ER) | payer MEDICARE, OTHER ==
--- NOTE | 2022-01-01 09:44 | ERPHSYRPT ---
- History of Present Illness Time Seen by Provider: 01/01/22 09:44 Source: patient Exam Limitations: no limitations Physician History: This is a cachectic appearing 71-year-old white male patient of Dr. Gildardo Burnett and epic manager/oncologist Dr. Lebron and presents with decreased appetite and dehydration symptoms. Patient is not eating well. He is on chemotherapy to treat liver, lung, colorectal cancer disease. He has an inoperable tumor near his liver intra-abdominal he. His oncologist sent him here for IV hydration, obtaining lab work and placement of patient in observation status in the hospital if indicated and patient desires. Patient's initial request is to not be admitted. However, patient's spouse wants him admitted if indicated. Patient has a history of elevated cholesterol, hypertension, [id number] diabetes, gastroesophageal reflux disease and anemia (patient on iron supplementation) Timing/Duration: worse, other (Chronic) Severity: moderate Allergies/Adverse Reactions: No Known Drug Allergies Allergy (Verified 01/01/22 10:04) Home Medications: Simvastatin 10 mg [Zocor 10MG] 10 mg PO DAILY 06/27/18 [History] Lisinopril 20 mg [Zestril 20 MG] 20 mg PO DAILY 07/10/18 [History] Metformin HCl 1,000 mg PO BID 07/10/18 [History] Sitagliptin Phosphate [Januvia] 100 mg PO DAILY 07/10/18 [History] Amlodipine Besylate 5 mg [Norvasc 5 mg] 5 mg PO DAILY 02/09/20 [History] Aspirin 81 mg PO DAILY 02/09/20 [History] Iron 65 mg PO DAILY 02/09/20 [History] Metoprolol Tartrate 25 mg [Lopressor 25MG Tab] 75 mg PO BID 01/01/22 [History] Morphine Sulfate [Morphine Sulfate ER] 15 mg PO BID 01/01/22 [History] Regorafenib [Stivarga] 80 mg PO DAILY 01/01/22 [History] glipiZIDE [Glipizide ER] 2.5 mg PO DAILY 01/01/22 [History] Hx Tetanus, Diphtheria Vaccination/Date Given: Yes (YEAR) Hx Influenza Vaccination/Date Given: Yes (2018) Hx Pneumococcal Vaccination/Date Given: Yes Travel Risk - International Travel Have you traveled outside of the country in past 3 weeks: No - Coronavirus Screening Are you exhibiting any of the following symptoms?: No Close contact with a COVID-19 positive Pt in past 14-21 Days: No - Review of Systems Constitutional: Weakness Eyes: No Symptoms Ears, Nose, & Throat: No Symptoms Respiratory: No Symptoms Cardiac: No Symptoms Abdominal/Gastrointestinal: Appetite Changes Genitourinary Symptoms: No Symptoms Musculoskeletal: No Symptoms Skin: No Symptoms Neurological: No Symptoms Psychological: No Symptoms Endocrine: No Symptoms Hematologic/Lymphatic: No Symptoms Immunological/Allergic: No Symptoms All Other Systems: Reviewed and Negative - Past Medical History Pertinent Past Medical History: Yes Neurological History: No Pertinent History ENT History: No Pertinent History Cardiac History: No Pertinent History Respiratory History: No Pertinent History Endocrine Medical History: Diabetes Type II, Other Musculoskeletal History: No Pertinent History GI Medical History: Colorectal Cancer, Hernia History: No Pertinent History Psycho-Social History: No Pertinent History Male Reproductive Disorders: No Pertinent History Other Medical History: No previous neck pain, per patient. Liver CA, still being treated for CA and receiving chemotherapy. He gets treatment every 2 weeks then has a pump that lasts 2 days. Pt notes the chemotherapy at this point is preventive. - Past Surgical History Past Surgical History: Yes Neuro Surgical History: No Pertinent History Cardiac: Other Respiratory: Other Gastrointestinal: Colon Resection, Hernia Repair Genitourinary: No Pertinent History Musculoskeletal: No Pertinent History Male Surgical History: Vasectomy Other Surgical History: T&A as a child,hernia repairs 40 yrs ago in the , colon resection x2, spot removed from lung 2014. States "was cancer,they removed it all". AAA repair with stent and coil. port placed 2 years ago - Social History Smoking Status: Former smoker How long have you smoked: 50 YEARS Exposure to second hand smoke: No Drug Use: marijuana Patient Lives Alone: No Significant Family History: no pertinent family hx - Nursing Vital Signs Nursing Vital Signs: Initial Vital Signs Temperature 97.0 F 01/01/22 09:50 Pulse Rate 94 H 01/01/22 09:50 Blood Pressure 136/91 01/01/22 09:50 O2 Sat by Pulse Oximetry 98 01/01/22 09:50 Pain Scale Pain Intensity 4 - Physical Exam General Appearance: no apparent distress, alert, cachetic Eye Exam: PERRL/EOMI, eyes nml inspection Ears, Nose, Throat Exam: dry mucous membranes Neck Exam: normal inspection, non-tender, supple, full range of motion Respiratory Exam: normal breath sounds, lungs clear, airway intact, No chest tenderness, No respiratory distress Cardiovascular Exam: regular rate/rhythm, normal heart sounds, normal peripheral pulses Gastrointestinal/Abdomen Exam: soft, normal bowel sounds, No tenderness, No guarding Rectal Exam: not done Back Exam: normal inspection, normal range of motion, No CVA tenderness, No vertebral tenderness Extremity Exam: normal inspection, normal range of motion, pelvis stable Neurologic Exam: alert, oriented x 3, cooperative, 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 as tested, normal mood/affect, nml cerebellar function, nml station & gait, sensation nml Skin Exam: normal color, warm, dry Lymphatic Exam: No adenopathy SpO2 Interpretation: normal O2 Delivery: Room Air Ordered Tests: Active Orders 24 hr Category Date Time Status IV Insertion STAT Care 01/01/22 10:13 Active CBC W DIFF Stat Lab 01/01/22 10:10 Completed CMP Stat Lab 01/01/22 10:10 Completed MAG [MAGNESIUM] Stat Lab 01/01/22 10:10 Completed Occult Blood Stool [FECAL OCCULT BLOOD - SCREENING] Lab 01/01/22 11:50 Ordered Stat UA W/RFX CULTURE Stat Lab 01/01/22 10:54 Completed Transfer Order Routine Transfer 01/01/22 Ordered Medication Summary Generic Name Dose Route Start Last Admin Trade Name Freq PRN Reason Stop Dose Admin Sodium Chloride 1,000 mls @ 250 mls/hr 01/01/22 11:30 01/01/22 11:46 Sodium Chloride 0.9% 1000 Ml IV 01/31/22 11:29 250 mls/hr .Q4H LAZARUS Administration Discontinued Medications Generic Name Dose Route Start Last Admin Trade Name Freq PRN Reason Stop Dose Admin Sodium Chloride 1,000 mls @ 999 mls/hr 01/01/22 10:13 01/01/22 11:41 Sodium Chloride 0.9% 1000 Ml IV 01/01/22 11:13 Infused .Q1H1M STA Infusion Sodium Chloride Confirm 01/01/22 10:14 Sodium Chloride 0.9% 1000 Ml Administered 01/01/22 10:15 Dose 1,000 mls @ ud .ROUTE .STK-MED ONE Morphine Sulfate 4 mg 01/01/22 10:40 01/01/22 10:45 Morphine Sulfate 4 Mg/Ml Injection IV 01/01/22 10:41 4 mg STAT ONE Administration Morphine Sulfate Confirm 01/01/22 10:43 Morphine Sulfate 4 Mg/Ml Injection Administered 01/01/22 10:44 Dose 4 mg .ROUTE .STK-MED ONE Ondansetron HCl 4 mg 01/01/22 10:40 01/01/22 10:45 Ondansetron Hcl 4 Mg/2 Ml Vial IV 01/01/22 10:41 4 mg STAT ONE Administration Ondansetron HCl Confirm 01/01/22 10:43 Ondansetron Hcl 4 Mg/2 Ml Vial Administered 01/01/22 10:44 Dose 4 mg .ROUTE .STK-MED ONE Lab/Rad Data: Laboratory Result Diagrams 01/01/22 10:10 01/01/22 10:10 Laboratory Results 01/01/22 01/01/22 01/01/22 Range/Units 10:54 10:10 10:10 WBC 11.0 H (4.0-10.5) x10^3/uL RBC 3.10 L (4.1-5.6) x10^6/uL Hgb 8.8 L (12.5-18.0) g/dL Hct 29.3 L (42-50) % MCV 94.5 (78-100) fL MCH 28.4 (26-32) pg MCHC 30.0 L (32-36) g/dL RDW 19.9 H (11.5-14.0) % Plt Count 258 (150-450) x10^3/uL MPV 10.2 (7.5-11.0) fL Gran % 82.6 H (36.0-66.0) % Immature Gran % (Auto) 0.4 (0.00-0.4) % Nucleat RBC Rel Count 0.0 (0.00-0.1) % Eos # (Auto) 0.03 (0-0.5) x10^3/uL Immature Gran # (Auto) 0.04 H (0.00-0.03) x10^3u/L Absolute Lymphs (auto) 0.71 L (1.0-4.6) x10^3/uL Absolute Monos (auto) 1.11 (0.0-1.3) x10^3/uL Absolute Nucleated RBC 0.00 (0.00-0.01) x10^3u/L Lymphocytes % 6.4 L (24.0-44.0) % Monocytes % 10.1 (0.0-12.0) % Eosinophils % 0.3 (0.00-5.0) % Basophils % 0.2 (0.0-0.4) % Absolute Granulocytes 9.13 H (1.4-6.9) x10^3/uL Basophils # 0.02 (0-0.4) x10^3/uL Sodium 135 L (137-145) mmol/L Potassium 4.0 (3.5-5.1) mmol/L Chloride 101 (98-107) mmol/L Carbon Dioxide 25 (22-30) mmol/L Anion Gap 12.8 (5-15) MEQ/L BUN 14 (9-20) mg/dL Creatinine 0.63 L (0.66-1.25) mg/dL Estimated GFR > 60.0 ML/MIN Glucose 123 H (74-106) mg/dL Calcium 8.3 L (8.4-10.2) mg/dL Magnesium 1.9 (1.6-2.3) mg/dL Total Bilirubin 0.90 (0.2-1.3) mg/dL AST 33 (17-59) U/L ALT 15 (0-50) U/L Alkaline Phosphatase 331 H (38-126) U/L Serum Total Protein 6.5 (6.3-8.2) g/dL Albumin 2.5 L (3.5-5.0) g/dL Urinalys Dipstick Clnc MAIN LAB Urine Color DARK YELLOW (YELLOW) Urine Appearance CLEAR (CLEAR) Urine pH 5.5 (5-6) Ur Specific [place] >=1.030 (1.005-1.025) POC Urine Protein Conf 100 (Negative) Urine Ketones NEGATIVE (NEGATIVE) Urine Nitrite NEGATIVE (NEGATIVE) Urine Bilirubin NEGATIVE (NEGATIVE) Urine Urobilinogen 1 (0-1) mg/dL Urine Leukocytes NEGATIVE (NEGATIVE) Urine WBC (Auto) NONE (0-5) /HPF Urine RBC (Auto) 0-2 (0-2) /HPF U Hyaline Cast (Auto) 0-2 (0-2) /LPF U Epithel Cells (Auto) NONE (FEW) /HPF Urine Bacteria (Auto) NONE (NEGATIVE) /HPF Urine RBC NEGATIVE (0-5) Luke/ul Urine Mucus (Auto) MODERATE (NEGATIVE) /HPF Ur Culture Indicated? NO Urine Glucose 100 (NEGATIVE) mg/dL - Progress Progress: improved Progress Note: 01/01/22 11:53 Medical decision making: This patient has anemia, lung cancer, intra-abdominal inoperable cancer, weakness dehydration and poor appetite. I spoke with Dr. Parsons who is covering for unassigned patients. We agree that the patient should be placed in observation. Patient will receive IV hydration, repeat laboratory data, evaluation by dietary, consultation by discharge planning and monitoring while in observation. Discussed with : Jose Miguel Counseled pt/family regarding: lab results, diagnosis - Departure Departure Disposition: Observation Clinical Impression: Anemia, Weakness, Lung cancer, Dehydration, Poor appetite Condition: Fair Critical Care Time: No Referrals: RL BURNETT [Primary Care Provider] - Follow up/PCP as directed
[2022-01-01] MEDS ORDERED: Sodium Chloride 0.9% 1000 ML 1,000 ML IV STA (10:13)
[2022-01-01] MEDS ORDERED: Sodium Chloride 0.9% 1000 ML 1,000 ML ONE ×2 (10:14→11:45)
[2022-01-01 10:29] LABS: Absolute Neutrophil Ct (ANC) 9.13 x10^3/uL (1.4-6.9); Basophil (Absolute #) 0.02 x10^3/uL (0-0.4); Eosinophil % 0.3 % (0.00-5.0); Eosinophil (Absolute #) 0.03 x10^3/uL (0-0.5); Hematocrit 29.3 % (42-50); Hemoglobin 8.8 g/dL (12.5-18.0); Lymphocyte (Absolute #) 0.71 x10^3/uL (1.0-4.6); Lymphocytes % 6.4 % (24.0-44.0); Mean Cell Volume 94.5 fL (78-100); Mean Corpuscular Hemoglobin 28.4 pg (26-32); Mean Platelet Volume 10.2 fL (7.5-11.0); Monocyte (Absolute #) 1.11 x10^3/uL (0.0-1.3); Monocytes % 10.1 % (0.0-12.0); Neutrophil % 82.6 % (36.0-66.0); Platelet Count 258 x10^3/uL (150-450); Red Cell Distribution Width 19.9 % (11.5-14.0)
[2022-01-01] MEDS ORDERED: MORPHINE SULFATE 4 MG INJ IV ONE (10:40)
[2022-01-01] MEDS ORDERED: Zofran 4 MG/2 ML VIAL IV ONE (10:40)
[2022-01-01] MEDS ORDERED: MORPHINE SULFATE 4 MG INJ ONE (10:43)
[2022-01-01] MEDS ORDERED: Zofran 4 MG/2 ML VIAL ONE (10:43)
[2022-01-01 11:10] LABS: ALBUMIN 2.5 g/dL (3.5-5.0); ALKALINE PHOSPHATASE 331 U/L (38-126); ANION GAP 12.8 MEQ/L (5-15); BLOOD UREA NITROGEN 14 mg/dL (9-20); CHLORIDE 101 mmol/L (98-107); Calcium 8.3 mg/dL (8.4-10.2); Carbon Dioxide 25 mmol/L (22-30); Creatinine 1 0.63 mg/dL (0.66-1.25); EST GLOMERULAR FILTRATION RATE > 60.0 ML/MIN; Glucose 123 mg/dL (74-106); MAGNESIUM 1.9 mg/dL (1.6-2.3); SGOT/AST 33 U/L (17-59); SGPT/ALT 15 U/L (0-50); SODIUM 135 mmol/L (137-145); Total Protein 6.5 g/dL (6.3-8.2)
[2022-01-01] MEDS ORDERED: Sodium Chloride 0.9% 1000 ML 1,000 ML IV SCH (11:30)
[2022-01-01 11:39] VITALS: BP 140/97; PULSE 76; O2SAT 99
[2022-01-01 11:39] LABS: Appearance CLEAR (CLEAR); Bilirubin NEGATIVE (NEGATIVE); Dipstick done @ ? MAIN LAB; Glucose 100 mg/dL (NEGATIVE); Ketones NEGATIVE (NEGATIVE); Nitrite NEGATIVE (NEGATIVE); Ph 5.5 (5-6); Protein,Urine Dip 100 (Negative); RBC NEGATIVE Ery/ul (0-5); Specific Gravity >=1.030 (1.005-1.025); Urobilinogen 1 mg/dL (0-1)
[2022-01-01 11:41] LABS: Hyaline Casts 0-2 /LPF (0-2); Mucus MODERATE /HPF (NEGATIVE); RBC 0-2 /HPF (0-2)
[2022-01-01 11:48] LABS: Urine Cultured Indicated? NO
[2022-01-01 12:43] LABS: INFLUENZA A NEGATIVE (NEGATIVE); INFLUENZA B NEGATIVE (NEGATIVE); RESPIRATORY SYNCTIAL VIRUS NEGATIVE (Negative); SARS-CoV-2 Xpert Express NEGATIVE (NEGATIVE)
== END 2022-01-01 13:05 | disposition left against medical advice (07) ==
LOC: ED 09:37
DX: C34.90 Malignant neoplasm of unspecified part of unspecified bronchus or lung (principal); R63.0 Anorexia; D64.9 Anemia, unspecified; R53.1 Weakness; E86.0 Dehydration; E78.5 Hyperlipidemia, unspecified; I10 Essential (primary) hypertension; E11.9 Type 2 diabetes mellitus without complications; Z79.84 Long term (current) use of oral hypoglycemic drugs; Z79.899 Other long term (current) drug therapy; Z20.828 Contact with and (suspected) exposure to other viral communicable diseases
CPT/HCPCS: 0241U; 36000; 36415; 80053; 81015; 83036; 83735; 85025; 96360; 96374; 96375; 99284; J1642; J2270; J2405

== ENCOUNTER 2022-01-29 20:49 | Emergency (ER) | payer MEDICARE, OTHER ==
[2022-01-29] MEDS ORDERED: DUONEB 0.5-3 MG/3 ml Neb IH ONE ×2 (21:38→21:42)
[2022-01-29] MEDS ORDERED: Sodium Chloride 0.9% 1000 ML 1,000 ML IV STA (21:38)
[2022-01-29] MEDS ORDERED: Sodium Chloride 0.9% 1000 ML 1,000 ML ONE (21:41)
[2022-01-29 21:44] LABS: Absolute Neutrophil Ct (ANC) 9.35 x10^3/uL (1.4-6.9); Basophil (Absolute #) 0.02 x10^3/uL (0-0.4); Eosinophil % 0.5 % (0.00-5.0); Eosinophil (Absolute #) 0.06 x10^3/uL (0-0.5); Hematocrit 27.1 % (42-50); Lymphocyte (Absolute #) 0.74 x10^3/uL (1.0-4.6); Lymphocytes % 6.7 % (24.0-44.0); Mean Cell Volume 95.1 fL (78-100); Mean Corpuscular Hemoglobin 28.1 pg (26-32); Mean Corpuscular Hgb Concent. 29.5 g/dL (32-36); Mean Platelet Volume 12.2 fL (7.5-11.0); Monocyte (Absolute #) 0.74 x10^3/uL (0.0-1.3); Monocytes % 6.7 % (0.0-12.0); Neutrophil % 85.3 % (36.0-66.0); Platelet Count 119 x10^3/uL (150-450); Red Blood Count 2.85 x10^6/uL (4.1-5.6); Red Cell Distribution Width 19.2 % (11.5-14.0)
--- NOTE | 2022-01-29 21:56 | ERPHSYRPT ---
- History of Present Illness Time Seen by Provider: 01/29/22 21:20 Source: patient Exam Limitations: no limitations Patient Subjective Stated Complaint: shortness of breath and cough x 4 days, ears and nose plugged up, difficulty swallowing Triage Nursing Assessment: Patient skin color pale. Alert and oriented x 4. Lung sounds on left diminished/clear and right faint crackles/rhonchi heard but diminished. Patient tachypneic. RLE 3+ pittine edema since fall 01/24/22. Physician History: 71 years old male with history of colon cancer status postresection/chemoradiation, hypertension presented in the ER with chief comp laint of multiple complaints. Patient reports having congestion, stopped ER and cough productive of yellow-green sputum moderate in amount for the last 3 to 4 days. He is also feeling weak fatigued and tired because of decreased oral intake. Patient reports having difficulty swallowing as it seems like it gets stuck and having hard time pushing it down. This has been going on for the last few weeks. Patient is also having right lower extremity swelling for 1 week after he fell but has no difficulty ambulation. Patient is maintaining oxygen saturation around 98% on room air without any difficulty breathing. Timing/Duration: day(s) (4), gradual onset, worse Severity: moderate Associated Symptoms: shortness of breath, cough, weakness, No fever Allergies/Adverse Reactions: No Known Drug Allergies Allergy (Verified 01/29/22 20:50) Home Medications: Simvastatin 10 mg [Zocor 10MG] 10 mg PO QHS 06/27/18 [History] Lisinopril 20 mg [Zestril 20 MG] 20 mg PO DAILY 07/10/18 [History] Metformin HCl 1,000 mg PO BID 07/10/18 [History] Sitagliptin Phosphate [Januvia] 100 mg PO DAILY 07/10/18 [History] Amlodipine Besylate 5 mg [Norvasc 5 mg] 5 mg PO QHS 02/09/20 [History] Aspirin 81 mg PO QHS 02/09/20 [History] Iron 65 mg PO DAILY 02/09/20 [History] Metoprolol Tartrate 25 mg [Lopressor 25MG Tab] 75 mg PO BID 01/01/22 [History] glipiZIDE [Glipizide ER] 2.5 mg PO DAILY 01/01/22 [History] Cyanocobalamin (Vitamin B-12) [Cyanocobalamin Injection] 1,000 mcg SQ UD 01/29/22 [History] Morphine Sulfate Cr 15 mg [Ms Contin 15 MG] 15 mg PO BID 01/29/22 [History] Multivitamin 1 tab PO QHS 01/29/22 [History] Hx Tetanus, Diphtheria Vaccination/Date Given: Yes Hx Influenza Vaccination/Date Given: Yes (2017) Hx Pneumococcal Vaccination/Date Given: Yes Immunizations Up to Date: Yes Travel Risk - International Travel Have you traveled outside of the country in past 3 weeks: No - Coronavirus Screening Are you exhibiting any of the following symptoms?: No Symptoms: Cough: New Onset, Shortness of Breath Close contact with a COVID-19 positive Pt in past 14-21 Days: No - Vaccine Status Have you recieved a Covid-19 vaccination: Yes Chalk Cutter: Moderna - Vaccination Dates Date of 2cond Vaccination (if applicable): Aug 2020 - Review of Systems Constitutional: Fatigue, Weakness Eyes: No Symptoms Ears, Nose, & Throat: No Symptoms Respiratory: Cough, Dyspnea, Dyspnea on Exertion (SCHMIDT) Cardiac: No Symptoms Abdominal/Gastrointestinal: Dysphagia Genitourinary Symptoms: No Symptoms Musculoskeletal: Arthralgias Neurological: No Symptoms Psychological: No Symptoms Endocrine: No Symptoms Hematologic/Lymphatic: No Symptoms Immunological/Allergic: No Symptoms - Past Medical History Pertinent Past Medical History: Yes Neurological History: No Pertinent History ENT History: No Pertinent History Cardiac History: No Pertinent History Respiratory History: No Pertinent History Endocrine Medical History: Diabetes Type II Musculoskeletal History: No Pertinent History GI Medical History: Colorectal Cancer, Hernia History: No Pertinent History, Other Psycho-Social History: No Pertinent History Male Reproductive Disorders: No Pertinent History Other Medical History: Colon cancer with mets to liver cancer, facial cancer, david ng cancer, still being treated for CA and receiving chemotherapy. Patient no longer taking chemo. - Past Surgical History Past Surgical History: Yes Neuro Surgical History: No Pertinent History Cardiac: Other Respiratory: Other Gastrointestinal: Colon Resection, Hernia Repair Genitourinary: No Pertinent History Musculoskeletal: No Pertinent History Male Surgical History: Vasectomy Other Surgical History: T&A as a child,hernia repairs 38 yrs ago in [place] [employer], colon resection x2, spot removed from lung 2015. States "was cancer,they removed it all". AAA repair with stent and coil. port placed 2 years ago - Social History Smoking Status: Former smoker How long have you smoked: 40 years Exposure to second hand smoke: Yes Drug Use: marijuana Patient Lives Alone: No Significant Family History: no pertinent family hx - Nursing Vital Signs Nursing Vital Signs: Initial Vital Signs Temperature 97 F 01/29/22 20:50 Pulse Rate 147 H 01/29/22 20:50 Respiratory Rate 22 01/29/22 20:50 Blood Pressure 90/73 01/29/22 20:50 O2 Sat by Pulse Oximetry 90 L 01/29/22 20:50 Pain Scale Pain Intensity 0 - Physical Exam General Appearance: no apparent distress, alert Eye Exam: PERRL/EOMI Ears, Nose, Throat Exam: normal ENT inspection, pharynx normal, moist mucous membranes Neck Exam: normal inspection, non-tender, supple, full range of motion Respiratory Exam: diminished breath sounds, rhonchi Cardiovascular Exam: normal heart sounds, tachycardia, edema (3+ pitting edema right lower extremity) Gastrointestinal/Abdomen Exam: soft, normal bowel sounds, No tenderness Back Exam: normal inspection, normal range of motion Extremity Exam: normal range of motion Neurologic Exam: alert, oriented x 3, cooperative, 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 as tested Skin Exam: normal color SpO2 Interpretation: normal SpO2: 96 O2 Delivery: Room Air - Course EKG Interpreted by Me: RATE (118), Sinus Tach, Right Bartlett Deviation, NORMAL INTERVALS, Non-specific ST Changes, Other (Frequent PVCs) Ordered Tests: Active Orders 24 hr Category Date Time Status AGAINST MEDICAL ADVISE [Release AMA] OM.NOW Care 01/29/22 23:40 Completed Services Tech STAT Care 01/29/22 21:38 Completed EKG-ER Only STAT Care 01/29/22 21:38 Completed CHEST 1 VIEW (PORTABLE) Stat Exams 01/29/22 21:38 Taken BLOOD CULTURE Stat Lab 01/29/22 22:00 Received CBC W DIFF Stat Lab 01/29/22 21:38 Completed CMP Stat Lab 01/29/22 21:38 Completed D-DIMER QUANTITATIVE Stat Lab 01/29/22 22:25 Completed Lactic Acid Stat Lab 01/29/22 22:00 Completed MAGNESIUM Stat Lab 01/29/22 21:38 Completed NT PRO BNP Stat Lab 01/29/22 21:38 Completed TROPONIN Q3H Lab 01/29/22 21:45 Completed TROPONIN Q3H Lab 01/30/22 00:45 Ordered TROPONIN Q3H Lab 01/30/22 03:45 Ordered TROPONIN Q3H Lab 01/30/22 06:45 Ordered TROPONIN Q3H Lab 01/30/22 09:45 Ordered UA W/RFX CULTURE Stat Lab 01/29/22 22:33 Completed Respiratory Therapy Assessment DAILY RT 01/29/22 21:51 Completed Medication Summary Discontinued Medications Generic Name Dose Route Start Last Admin Trade Name Freq PRN Reason Stop Dose Admin Albuterol/Ipratropium 3 ml 01/29/22 21:38 01/29/22 21:48 Ipratropium/Albuterol Sulfate 3 Ml Ampul.Neb IH 01/29/22 21:39 3 ml STAT ONE Administration Albuterol/Ipratropium Confirm 01/29/22 21:42 Ipratropium/Albuterol Sulfate 3 Ml Ampul.Neb Administered 01/29/22 21:43 Dose 3 ml IH .STK-MED ONE Heparin Sodium (Beef Lung) 500 units 01/29/22 23:35 01/29/22 23:37 Heparin Lock Flush Pf 500 Units/5 Ml Syringe PORT FLUSH 02/28/22 23:34 500 units PRN PRN Administration IV PORT FLUSH Heparin Sodium (Beef Lung) Confirm 01/29/22 23:37 Heparin Lock Flush Pf 500 Units/5 Ml Syringe Administered 01/29/22 23:38 Dose 500 units .ROUTE .STK-MED ONE Sodium Chloride 1,000 mls @ 999 mls/hr 01/29/22 21:38 01/29/22 23:13 Sodium Chloride 0.9% 1000 Ml IV 01/29/22 22:38 Infused .Q1H1M STA Infusion Sodium Chloride Confirm 01/29/22 21:41 Sodium Chloride 0.9% 1000 Ml Administered 01/29/22 21:42 Dose 1,000 mls @ ud .ROUTE .STK-MED ONE Lab/Rad Data: Laboratory Result Diagrams 01/29/22 21:38 01/29/22 21:38 Laboratory Results 01/29/22 01/29/22 01/29/22 Range/Units 22:33 22:25 22:00 WBC (4.0-10.5) x10^3/uL RBC (4.1-5.6) x10^6/uL Hgb (12.5-18.0) g/dL Hct (42-50) % MCV (78-100) fL MCH (26-32) pg MCHC (32-36) g/dL RDW (11.5-14.0) % Plt Count (150-450) x10^3/uL MPV (7.5-11.0) fL Gran % (36.0-66.0) % Immature Gran % (Auto) (0.00-0.4) % Nucleat RBC Rel Count (0.00-0.1) % Eos # (Auto) (0-0.5) x10^3/uL Immature Gran # (Auto) (0.00-0.03) x10^3u/L Absolute Lymphs (auto) (1.0-4.6) x10^3/uL Absolute Monos (auto) (0.0-1.3) x10^3/uL Absolute Nucleated RBC (0.00-0.01) x10^3u/L Lymphocytes % (24.0-44.0) % Monocytes % (0.0-12.0) % Eosinophils % (0.00-5.0) % Basophils % (0.0-0.4) % Absolute Granulocytes (1.4-6.9) x10^3/uL Basophils # (0-0.4) x10^3/uL D-Dimer 5.27 H* (0.0-0.50) mg/L Sodium (137-145) mmol/L Potassium (3.5-5.1) mmol/L Chloride (98-107) mmol/L Carbon Dioxide (22-30) mmol/L Anion Gap (5-15) MEQ/L BUN (9-20) mg/dL Creatinine (0.66-1.25) mg/dL Estimated GFR ML/MIN Glucose (74-106) mg/dL Lactic Acid 1.8 (0.4-2.0) Calcium (8.4-10.2) mg/dL Magnesium (1.6-2.3) mg/dL Total Bilirubin (0.2-1.3) mg/dL AST (17-59) U/L ALT (0-50) U/L Alkaline Phosphatase (38-126) U/L Troponin I (0.000-0.034) ng/mL NT-Pro-B Natriuret Pep (0-900) pg/mL Serum Total Protein (6.3-8.2) g/dL Albumin (3.5-5.0) g/dL Urinalys Dipstick Clnc MAIN LAB Urine Color YELLOW (YELLOW) Urine Appearance CLEAR (CLEAR) Urine pH 5.0 (5-6) Ur Specific [place] 1.020 (1.005-1.025) POC Urine Protein Conf 30 (Negative) Urine Ketones TRACE (NEGATIVE) Urine Nitrite NEGATIVE (NEGATIVE) Urine Bilirubin SMALL (NEGATIVE) Urine Urobilinogen 0.2 (0-1) mg/dL Urine Leukocytes NEGATIVE (NEGATIVE) Urine WBC (Auto) 0-2 (0-5) /HPF Urine RBC (Auto) 0-2 (0-2) /HPF U Hyaline Cast (Auto) 3-5 (0-2) /LPF Urine RBC NEGATIVE (0-5) Luke/ul Urine Mucus (Auto) SLIGHT (NEGATIVE) /HPF Ur Culture Indicated? NO Urine Glucose NEGATIVE (NEGATIVE) mg/dL 01/29/22 01/29/22 01/29/22 Range/Units 21:45 21:38 21:38 WBC 11.0 H (4.0-10.5) x10^3/uL RBC 2.85 L (4.1-5.6) x10^6/uL Hgb 8.0 L (12.5-18.0) g/dL Hct 27.1 L (42-50) % MCV 95.1 (78-100) fL MCH 28.1 (26-32) pg MCHC 29.5 L (32-36) g/dL RDW 19.2 H (11.5-14.0) % Plt Count 119 L (150-450) x10^3/uL MPV 12.2 H (7.5-11.0) fL Gran % 85.3 H (36.0-66.0) % Immature Gran % (Auto) 0.6 H (0.00-0.4) % Nucleat RBC Rel Count 0.0 (0.00-0.1) % Eos # (Auto) 0.06 (0-0.5) x10^3/uL Immature Gran # (Auto) 0.07 H (0.00-0.03) x10^3u/L Absolute Lymphs (auto) 0.74 L (1.0-4.6) x10^3/uL Absolute Monos (auto) 0.74 (0.0-1.3) x10^3/uL Absolute Nucleated RBC 0.00 (0.00-0.01) x10^3u/L Lymphocytes % 6.7 L (24.0-44.0) % Monocytes % 6.7 (0.0-12.0) % Eosinophils % 0.5 (0.00-5.0) % Basophils % 0.2 (0.0-0.4) % Absolute Granulocytes 9.35 H (1.4-6.9) x10^3/uL Basophils # 0.02 (0-0.4) x10^3/uL D-Dimer (0.0-0.50) mg/L Sodium 137 (137-145) mmol/L Potassium 4.4 (3.5-5.1) mmol/L Chloride 107 (98-107) mmol/L Carbon Dioxide 23 (22-30) mmol/L Anion Gap 11.1 (5-15) MEQ/L BUN 32 H (9-20) mg/dL Creatinine 0.97 (0.66-1.25) mg/dL Estimated GFR > 60.0 ML/MIN Glucose 54 L (74-106) mg/dL Lactic Acid (0.4-2.0) Calcium 8.7 (8.4-10.2) mg/dL Magnesium 1.9 (1.6-2.3) mg/dL Total Bilirubin 0.70 (0.2-1.3) mg/dL AST 41 (17-59) U/L ALT 16 (0-50) U/L Alkaline Phosphatase 340 H (38-126) U/L Troponin I < 0.012 (0.000-0.034) ng/mL NT-Pro-B Natriuret Pep 2320 H (0-900) pg/mL Serum Total Protein 6.9 (6.3-8.2) g/dL Albumin 2.4 L (3.5-5.0) g/dL Urinalys Dipstick Clnc Urine Color (YELLOW) Urine Appearance (CLEAR) Urine pH (5-6) Ur Specific [place] (1.005-1.025) POC Urine Protein Conf (Negative) Urine Ketones (NEGATIVE) Urine Nitrite (NEGATIVE) Urine Bilirubin (NEGATIVE) Urine Urobilinogen (0-1) mg/dL Urine Leukocytes (NEGATIVE) Urine WBC (Auto) (0-5) /HPF Urine RBC (Auto) (0-2) /HPF U Hyaline Cast (Auto) (0-2) /LPF Urine RBC (0-5) Luke/ul Urine Mucus (Auto) (NEGATIVE) /HPF Ur Culture Indicated? Urine Glucose (NEGATIVE) mg/dL - Progress Progress: improved Progress Note: 01/29/22 23:52 71 years old with multiple medical problems is evaluated in the ER for multiple complaints. Is given breathing treatment and IV fluids. Patient heart rate is bouncing between 90-1 30s and improved after fluids. Patient is feeling better after breathing treatment and fluids. Work-up showed white count of 11 hemoglobin of 8 and patient has chronic anemia and stays between 8 and 9. Patient was hypoglycemic with blood sugar in 50s and has been drinking orange juice and not symptomatic at all. Chest x-ray showed questionable infiltrative process on the right and left as well and will give him antibiotics. Has elevated D-dimers, recommended CTA chest and antibiotics but he does not want to wait and wants to leave, will follow-up with his primary care and hematology and does have appointment this week. Patient is not confused or altered at all. Is not in any acute distress. I have discussed with patient in detail about risk of leaving AGAINST MEDICAL ADVICE which would not only delay the diagnosis but worsening of disease process including difficulty breathing, worsening of heart rate leading to but he still wants to leave. Patient walked out of the ER in a stable condition. He is encouraged to have outpatient follow-up. Counseled pt/family regarding: lab results, diagnosis, need for follow-up, rad results - Departure Departure Disposition: AMA Clinical Impression: Dyspnea, Tachycardia, Generalized weakness, Elevated d-dimer, Hypoglycemia Condition: Fair Critical Care Time: No Referrals: RL BURNETT [Primary Care Provider] - Follow up/PCP as directed
[2022-01-29 22:09] LABS: ALBUMIN 2.4 g/dL (3.5-5.0); ALKALINE PHOSPHATASE 340 U/L (38-126); ANION GAP 11.1 MEQ/L (5-15); BLOOD UREA NITROGEN 32 mg/dL (9-20); CHLORIDE 107 mmol/L (98-107); Calcium 8.7 mg/dL (8.4-10.2); Carbon Dioxide 23 mmol/L (22-30); Creatinine 1 0.97 mg/dL (0.66-1.25); EST GLOMERULAR FILTRATION RATE > 60.0 ML/MIN; Glucose 54 mg/dL (74-106); MAGNESIUM 1.9 mg/dL (1.6-2.3); NT PRO BNP 2320 pg/mL (0-900); Potassium 4.4 mmol/L (3.5-5.1); SGOT/AST 41 U/L (17-59); SGPT/ALT 16 U/L (0-50); SODIUM 137 mmol/L (137-145); Total Protein 6.9 g/dL (6.3-8.2)
[2022-01-29 22:39] LABS: Appearance CLEAR (CLEAR); Bilirubin SMALL (NEGATIVE); Glucose NEGATIVE (NEGATIVE); Ketones TRACE (NEGATIVE); Mucus SLIGHT /HPF (NEGATIVE); RBC 0-2 /HPF (0-2); WBC 0-2 /HPF (0-5)
[2022-01-29 22:40] LABS: Dipstick done @ ? MAIN LAB; Nitrite NEGATIVE (NEGATIVE); Protein,Urine Dip 30 (Negative); RBC NEGATIVE Ery/ul (0-5); Urine Cultured Indicated? NO; Urobilinogen 0.2 mg/dL (0-1)
[2022-01-29 23:21] VITALS: BP 97/50; PULSE 115
[2022-01-29 23:58] VITALS: O2SAT 96
--- NOTE | 2022-01-30 09:25 | XRAY ---
Indication: Cough. Short of breath. Comparison: March 08, 2014. Portable chest demonstrates new CT proven large bilateral metastatic masses without effusion. Heart not enlarged with right Port-A-Cath. Bony thorax intact.
== END 2022-01-29 23:45 | disposition left against medical advice (07) ==
LOC: ED 20:49
DX: R06.00 Dyspnea, unspecified (principal); R00.0 Tachycardia, unspecified; R53.1 Weakness; R79.1 Abnormal coagulation profile; E11.649 Type 2 diabetes mellitus with hypoglycemia without coma; R05.1 Acute cough; R09.81 Nasal congestion; R13.10 Dysphagia, unspecified; R60.0 Localized edema; Z79.84 Long term (current) use of oral hypoglycemic drugs; Z79.891 Long term (current) use of opiate analgesic; Z79.899 Other long term (current) drug therapy
CPT/HCPCS: 36415; 71045; 80053; 81015; 83605; 83735; 83880; 84484; 85025; 85379; 87040; 93005; 93041; 94640; 96360; 96374; 99284; J1642; A9270-GY

== ENCOUNTER 2022-02-05 11:18 | Observation (INO) | payer MEDICARE, OTHER ==
[2022-02-05] MEDS ORDERED: Sodium Chloride 0.9% 1000 ML 1,000 ML IV STA (11:43)
[2022-02-05] MEDS ORDERED: Sodium Chloride 0.9% 1000 ML 1,000 ML ONE (11:49)
--- NOTE | 2022-02-05 11:53 | ERPHSYRPT ---
- History of Present Illness Time Seen by Provider: 02/05/22 11:30 Source: patient Exam Limitations: no limitations Patient Subjective Stated Complaint: PT BROUGHT OVER FROM OUTPT FOR LOW B/P AND HIGH HEART RATE. PT IS GETTING ANTIBOITICS FOR INFECTION TO FOOT Triage Nursing Assessment: PT ALERT, ARRIVED PER WC, RESP EASY, FACE MASK IN PLACE, SIN W/D/P. CO PAIN TO BACK AND NECK THAT IS CHRONIC. Physician History: Patient is a 71-year-old male with a history of metastatic colon cancer currently being treated for a foot infection presents to our ED as a referral from the infusion center for evaluation of hypotension and tachycardia. Patient states his right leg has been draining fluid through the skin saturating his pant and leg. Patient has a resting tachycardia of 10 5-1 10. However patient is asymptomatic. No dizziness. No lightheadedness. No chest pain or shortness of breath. No nausea vomiting or diaphoresis. No diarrhea. No rash. Patient is otherwise asymptomatic. He voices no other complaints or concerns at this time. Timing/Duration: today Severity: moderate Modifying Factors: Improves With: nothing Associated Symptoms: denies symptoms Allergies/Adverse Reactions: No Known Drug Allergies Allergy (Verified 02/05/22 11:37) Home Medications: Simvastatin 10 mg [Zocor 10MG] 10 mg PO QHS 06/27/18 [History] Lisinopril 20 mg [Zestril 20 MG] 20 mg PO DAILY 07/10/18 [History] Metformin HCl 1,000 mg PO BID 07/10/18 [History] Sitagliptin Phosphate [Januvia] 100 mg PO DAILY 07/10/18 [History] Amlodipine Besylate 5 mg [Norvasc 5 mg] 5 mg PO QHS 02/09/20 [History] Aspirin 81 mg PO QHS 02/09/20 [History] Iron 65 mg PO DAILY 02/09/20 [History] Metoprolol Tartrate 25 mg [Lopressor 25MG Tab] 75 mg PO BID 01/01/22 [History] glipiZIDE [Glipizide ER] 2.5 mg PO DAILY 01/01/22 [History] Cyanocobalamin (Vitamin B-12) [Cyanocobalamin Injection] 1,000 mcg SQ UD 01/29/22 [History] Morphine Sulfate Cr 15 mg [Ms Contin 15 MG] 15 mg PO BID 01/29/22 [History] Multivitamin 1 tab PO QHS 01/29/22 [History] Hx Tetanus, Diphtheria Vaccination/Date Given: Yes Hx Influenza Vaccination/Date Given: Yes (2017) Hx Pneumococcal Vaccination/Date Given: Yes Immunizations Up to Date: Yes Travel Risk - International Travel Have you traveled outside of the country in past 3 weeks: No - Coronavirus Screening Are you exhibiting any of the following symptoms?: No Close contact with a COVID-19 positive Pt in past 14-21 Days: No - Vaccine Status Have you recieved a Covid-19 vaccination: Yes 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: [employer] - Vaccination Dates Date of 2cond Vaccination (if applicable): Aug 2020 - Review of Systems Constitutional: No Symptoms, No Fever, No Chills Eyes: No Symptoms Ears, Nose, & Throat: No Symptoms Respiratory: No Symptoms, No Cough, No Dyspnea Cardiac: No Symptoms, No Chest Pain, No Edema, No Syncope Abdominal/Gastrointestinal: No Symptoms, No Abdominal Pain, No Nausea, No Vomiting, No Diarrhea Genitourinary Symptoms: No Symptoms, No Dysuria Musculoskeletal: No Symptoms, No Back Pain, No Neck Pain Skin: No Symptoms, No Rash Neurological: No Symptoms, No Dizziness, No Focal Weakness, No Sensory Changes Psychological: No Symptoms Endocrine: No Symptoms Hematologic/Lymphatic: No Symptoms Immunological/Allergic: No Symptoms All Other Systems: Reviewed and Negative - Past Medical History Pertinent Past Medical History: Yes Neurological History: No Pertinent History ENT History: No Pertinent History Cardiac History: No Pertinent History Respiratory History: No Pertinent History Endocrine Medical History: Diabetes Type II Musculoskeletal History: No Pertinent History GI Medical History: Colorectal Cancer, Hernia History: No Pertinent History, Other Psycho-Social History: No Pertinent History Male Reproductive Disorders: No Pertinent History Other Medical History: Colon cancer with mets to liver cancer, facial cancer, lung cancer, still being treated for CA and receiving chemotherapy. Patient no longer taking chemo. - Past Surgical History Past Surgical History: Yes Neuro Surgical History: No Pertinent History Cardiac: Other Respiratory: Other Gastrointestinal: Colon Resection, Hernia Repair Genitourinary: No Pertinent History Musculoskeletal: No Pertinent History Male Surgical History: Vasectomy Other Surgical History: T&A as a child,hernia repairs 40 yrs ago in the , colon resection x2, spot removed from lung 2015. States "was cancer,they removed it all". AAA repair with stent and coil. port placed 2 years ago - Social History Smoking Status: Former smoker How long have you smoked: 40 years Exposure to second hand smoke: Yes Drug Use: marijuana Patient Lives Alone: No Significant Family History: no pertinent family hx - Nursing Vital Signs Nursing Vital Signs: Initial Vital Signs Temperature 97.0 F 02/05/22 11:19 Pulse Rate 108 H 02/05/22 11:19 Respiratory Rate 16 02/05/22 11:19 Blood Pressure 88/59 02/05/22 11:19 Pain Scale Pain Intensity 5 - Physical Exam General Appearance: no apparent distress, alert, cachetic, other (Thin frail cachectic appearing male) Eye Exam: PERRL/EOMI, eyes nml inspection Ears, Nose, Throat Exam: normal ENT inspection, TMs normal, pharynx normal, moist mucous membranes Neck Exam: normal inspection, non-tender, supple, full range of motion Respiratory Exam: normal breath sounds, lungs clear, airway intact, No respiratory distress Cardiovascular Exam: regular rate/rhythm, normal heart sounds, normal peripheral pulses Gastrointestinal/Abdomen Exam: soft, normal bowel sounds, No tenderness, No mass Back Exam: normal inspection, normal range of motion, No CVA tenderness, No vertebral tenderness Extremity Exam: normal inspection, normal range of motion, pelvis stable, other (Right leg is swollen. There is serous fluid draining through the skin soaking onto his pants leg. No obvious cellulitis or lymphangitis.) Neurologic Exam: alert, oriented x 3, cooperative, normal mood/affect, nml cerebellar function, nml station & gait, sensation nml, No motor deficits Skin Exam: normal color, warm, dry, No rash Lymphatic Exam: No adenopathy SpO2 Interpretation: normal SpO2: 94 O2 Delivery: Room Air - Course Nursing assessment & vital signs reviewed: Yes EKG Interpreted by Me: RATE (106), Sinus Tach, NORMAL AXIS, NORMAL INTERVALS - Radiology Exams Chest X-ray Interpretation: Teleradiologist Report (Large bilateral metastatic masses no effusions) Ordered Tests: Active Orders 24 hr Category Date Time Status Transportation Director STAT Care 02/05/22 11:43 Active EKG-ER Only STAT Care 02/05/22 11:43 Active IV Insertion STAT Care 02/05/22 11:43 Active Pulse Oximetry (ED) STAT Care 02/05/22 11:43 Active CHEST 1 VIEW (PORTABLE) Stat Exams 02/05/22 11:43 Completed VENOUS UNILAT/LIMITED EXTREMIT [US] Stat Exams 02/05/22 11:45 Completed BLOOD CULTURE Stat Lab 02/05/22 15:00 Ordered CBC W DIFF Stat Lab 02/05/22 12:05 Completed CMP Stat Lab 02/05/22 12:05 Completed Lactic Acid Stat Lab 02/05/22 12:40 Completed Lactic Acid Stat Lab 02/05/22 14:43 Received POCT GLUCOSE Stat Lab 02/05/22 11:22 Received POCT GLUCOSE Stat Lab 02/05/22 11:24 Completed TROPONIN Q3H Lab 02/05/22 12:05 Completed TROPONIN Q3H Lab 02/05/22 14:30 Received TROPONIN Q3H Lab 02/05/22 17:45 Ordered TROPONIN Q3H Lab 02/05/22 20:45 Ordered TROPONIN Q3H Lab 02/05/22 23:45 Ordered UA W/RFX CULTURE Stat Lab 02/05/22 13:50 Ordered Transfer Order Routine Transfer 02/05/22 Ordered Medication Summary Generic Name Dose Route Start Last Admin Trade Name Freq PRN Reason Stop Dose Admin Ceftriaxone Sodium/Dextrose 1 g in 50 mls @ 100 mls/hr 02/05/22 15:00 Rocephin 1 Gm-D5w 50 Ml Bag IV 02/05/22 15:29 STAT STA Discontinued Medications Generic Name Dose Route Start Last Admin Trade Name Freq PRN Reason Stop Dose Admin Sodium Chloride 1,000 mls @ 999 mls/hr 02/05/22 11:43 02/05/22 13:32 Sodium Chloride 0.9% 1000 Ml IV 02/05/22 12:43 Infused .Q1H1M STA Infusion Sodium Chloride Confirm 02/05/22 11:49 Sodium Chloride 0.9% 1000 Ml Administered 02/05/22 11:50 Dose 1,000 mls @ ud .ROUTE .[facility] Lab/Rad Data: Laboratory Result Diagrams 02/05/22 12:05 02/05/22 12:05 Laboratory Results 02/05/22 02/05/22 02/05/22 Range/Units 12:50 12:40 12:05 WBC (4.0-10.5) x10^3/uL RBC (4.1-5.6) x10^6/uL Hgb (12.5-18.0) g/dL Hct (42-50) % MCV (78-100) fL MCH (26-32) pg MCHC (32-36) g/dL RDW (11.5-14.0) % Plt Count (150-450) x10^3/uL MPV (7.5-11.0) fL Gran % (36.0-66.0) % Immature Gran % (Auto) (0.00-0.4) % Nucleat RBC Rel Count (0.00-0.1) % Eos # (Auto) (0-0.5) x10^3/uL Immature Gran # (Auto) (0.00-0.03) x10^3u/L Absolute Lymphs (auto) (1.0-4.6) x10^3/uL Absolute Monos (auto) (0.0-1.3) x10^3/uL Absolute Nucleated RBC (0.00-0.01) x10^3u/L Lymphocytes % (24.0-44.0) % Monocytes % (0.0-12.0) % Eosinophils % (0.00-5.0) % Basophils % (0.0-0.4) % Absolute Granulocytes (1.4-6.9) x10^3/uL Basophils # (0-0.4) x10^3/uL Sodium (137-145) mmol/L Potassium (3.5-5.1) mmol/L Chloride (98-107) mmol/L Carbon Dioxide (22-30) mmol/L Anion Gap (5-15) MEQ/L BUN (9-20) mg/dL Creatinine (0.66-1.25) mg/dL Estimated GFR ML/MIN Glucose (74-106) mg/dL POC Glucometer (74 to 106) mg/dL Lactic Acid 3.1 H (0.4-2.0) Calcium (8.4-10.2) mg/dL Total Bilirubin (0.2-1.3) mg/dL AST (17-59) U/L ALT (0-50) U/L Alkaline Phosphatase (38-126) U/L Troponin I < 0.012 (0.000-0.034) ng/mL Serum Total Protein (6.3-8.2) g/dL Albumin (3.5-5.0) g/dL Influenza Type A Ag NEGATIVE (NEGATIVE) Influenza Type B Ag NEGATIVE (NEGATIVE) RSV (PCR) NEGATIVE (Negative) SARS-CoV-2 (PCR) NEGATIVE (NEGATIVE) Slides for Path Review 02/05/22 02/05/22 02/05/22 Range/Units 12:05 12:05 11:24 WBC 14.7 H (4.0-10.5) x10^3/uL RBC 3.05 L (4.1-5.6) x10^6/uL Hgb 8.5 L (12.5-18.0) g/dL Hct 29.0 L (42-50) % MCV 95.1 (78-100) fL MCH 27.9 (26-32) pg MCHC 29.3 L (32-36) g/dL RDW 19.9 H (11.5-14.0) % Plt Count 179 (150-450) x10^3/uL MPV 10.8 (7.5-11.0) fL Gran % 90.0 H (36.0-66.0) % Immature Gran % (Auto) 0.8 H (0.00-0.4) % Nucleat RBC Rel Count 0.0 (0.00-0.1) % Eos # (Auto) 0.01 (0-0.5) x10^3/uL Immature Gran # (Auto) 0.12 H (0.00-0.03) x10^3u/L Absolute Lymphs (auto) 0.55 L (1.0-4.6) x10^3/uL Absolute Monos (auto) 0.78 (0.0-1.3) x10^3/uL Absolute Nucleated RBC 0.00 (0.00-0.01) x10^3u/L Lymphocytes % 3.7 L (24.0-44.0) % Monocytes % 5.3 (0.0-12.0) % Eosinophils % 0.1 (0.00-5.0) % Basophils % 0.1 (0.0-0.4) % Absolute Granulocytes 13.23 H (1.4-6.9) x10^3/uL Basophils # 0.01 (0-0.4) x10^3/uL Sodium 140 (137-145) mmol/L Potassium 4.2 (3.5-5.1) mmol/L Chloride 107 (98-107) mmol/L Carbon Dioxide 24 (22-30) mmol/L Anion Gap 12.2 (5-15) MEQ/L BUN 26 H (9-20) mg/dL Creatinine 1.01 (0.66-1.25) mg/dL Estimated GFR > 60.0 ML/MIN Glucose 106 (74-106) mg/dL POC Glucometer 83 (74 to 106) mg/dL Lactic Acid (0.4-2.0) Calcium 8.4 (8.4-10.2) mg/dL Total Bilirubin 0.80 (0.2-1.3) mg/dL AST 40 (17-59) U/L ALT 18 (0-50) U/L Alkaline Phosphatase 326 H (38-126) U/L Troponin I (0.000-0.034) ng/mL Serum Total Protein 6.8 (6.3-8.2) g/dL Albumin 2.3 L (3.5-5.0) g/dL Influenza Type A Ag (NEGATIVE) Influenza Type B Ag (NEGATIVE) RSV (PCR) (Negative) SARS-CoV-2 (PCR) (NEGATIVE) Slides for Path Review YES - Progress Progress: improved Progress Note: Patient reassessed. He states he feels better. Blood pressure responding to IV fluids. Systolic blood pressure now is 94. Map is 71. Work-up reveals dehydration with a lactic acidosis of 3.1. Mild hypoalbuminemia. Chest x-ray reveals bilateral masses consistent with history of metastatic cancer. Right lower extremity ultrasound negative for DVT. Patient has a leukocytosis. He is currently on IV antibiotics for a right leg infection. Patient has a normocytic anemia of 8.5. Patient states he feels weak. He remains tachycardic in the low 110s to 120s. He will require admission for IV hydration, trending of lactic acid levels and reassessment of energy level/fatigue. COVID test pending. 02/05/22 14:[address] Parsons who accepts admission to observation.. Patient's dose of Rocephin was not administered by the infusion center due to low blood pressure.. We ordered the 1 g Rocephin to be administered in our ED. The initial order to the infusion center was established by Dr. Alo Burnett. Plan of care discussed with patient. He agrees to admission at [facility] for further evaluation and treatment. Portions of this note were created with voice recognition technology. There may be grammatical, spelling, punctuation or sound alike errors 02/05/22 15:02 Counseled pt/family regarding: lab results, diagnosis - Departure Departure Disposition: Observation Clinical Impression: Dehydration, Lactic acidosis, Hypoalbuminemia, Hypotension, Tachycardia, Leukocytosis, Normocytic anemia Condition: Stable Critical Care Time: No Referrals: RL BURNETT [Primary Care Provider] - Follow up/PCP as directed
[2022-02-05 12:13] LABS: Absolute Neutrophil Ct (ANC) 13.23 x10^3/uL (1.4-6.9); Basophil (Absolute #) 0.01 x10^3/uL (0-0.4); Eosinophil % 0.1 % (0.00-5.0); Eosinophil (Absolute #) 0.01 x10^3/uL (0-0.5); Hemoglobin 8.5 g/dL (12.5-18.0); Lymphocyte (Absolute #) 0.55 x10^3/uL (1.0-4.6); Lymphocytes % 3.7 % (24.0-44.0); Mean Cell Volume 95.1 fL (78-100); Mean Corpuscular Hemoglobin 27.9 pg (26-32); Mean Corpuscular Hgb Concent. 29.3 g/dL (32-36); Mean Platelet Volume 10.8 fL (7.5-11.0); Monocyte (Absolute #) 0.78 x10^3/uL (0.0-1.3); Monocytes % 5.3 % (0.0-12.0); Platelet Count 179 x10^3/uL (150-450); Red Blood Count 3.05 x10^6/uL (4.1-5.6); Red Cell Distribution Width 19.9 % (11.5-14.0); White Blood Count 14.7 x10^3/uL (4.0-10.5)
[2022-02-05 12:31] LABS: ALBUMIN 2.3 g/dL (3.5-5.0); ALKALINE PHOSPHATASE 326 U/L (38-126); ANION GAP 12.2 MEQ/L (5-15); BLOOD UREA NITROGEN 26 mg/dL (9-20); CHLORIDE 107 mmol/L (98-107); Calcium 8.4 mg/dL (8.4-10.2); Carbon Dioxide 24 mmol/L (22-30); Creatinine 1 1.01 mg/dL (0.66-1.25); EST GLOMERULAR FILTRATION RATE > 60.0 ML/MIN; Glucose 106 mg/dL (74-106); Potassium 4.2 mmol/L (3.5-5.1); SGOT/AST 40 U/L (17-59); SGPT/ALT 18 U/L (0-50); SODIUM 140 mmol/L (137-145); Total Protein 6.8 g/dL (6.3-8.2)
--- NOTE | 2022-02-05 12:41 | XRAY ---
Indication: Right leg swelling. History foot infection. Two-dimensional sonogram and color Doppler imaging of the major venous vessels of the right leg performed. Comparison: None No thrombus seen in the examined deep venous vessels of the right leg including greater saphenous vein. Veins demonstrate normal compressibility. Venous waveforms are normal with and without augmentation. Impression: Right leg negative for DVT.
--- NOTE | 2022-02-05 12:54 | XRAY ---
Indication: Pneumonia. Comparison: January 29, 2022. Portable chest unchanged again demonstrating large bilateral metastatic masses without large effusion. Heart not enlarged again with right Port-A-Cath. No new/acute findings.
[2022-02-05 13:50] LABS: INFLUENZA A NEGATIVE (NEGATIVE); INFLUENZA B NEGATIVE (NEGATIVE); RESPIRATORY SYNCTIAL VIRUS NEGATIVE (Negative); SARS-CoV-2 Xpert Express NEGATIVE (NEGATIVE)
[2022-02-05 14:16] LABS: Slide Review 1 YES
[2022-02-05 14:47] LABS: Mucus SLIGHT /HPF (NEGATIVE); WBC 0-2 /HPF (0-5)
[2022-02-05] MEDS ORDERED: ROCEPHIN 1 Gm-D5w 50 ml Bag** 1 G/50 ML IVPB IV STA (15:00)
[2022-02-05 15:12] LABS: Urine Cultured Indicated? NO
[2022-02-05] MEDS ORDERED: ROCEPHIN 1 Gm-D5w 50 ml Bag** 1 G/50 ML IVPB IV ONE (15:12)
[2022-02-05 15:24] LABS: Appearance CLEAR (CLEAR); Bilirubin SMALL (NEGATIVE); Glucose 100 mg/dL (NEGATIVE); Ketones NEGATIVE (NEGATIVE); RBC NEGATIVE Ery/ul (0-5); Specific Gravity >=1.030 (1.005-1.025)
[2022-02-05 15:31] LABS: Dipstick done @ ? MAIN LAB; Nitrite NEGATIVE (NEGATIVE); Protein,Urine Dip 30 (Negative); Urobilinogen 1 mg/dL (0-1)
[2022-02-05] MEDS ORDERED: Zofran 4 MG/2 ML VIAL IV PRN (15:43)
[2022-02-05] MEDS: Sodium Chloride 0.9% 1000 ML 1,000 ML IV SCH (17:10)
--- NOTE | 2022-02-05 18:23 | PCM.BN ---
Brief Admission Note - Admission Note Brief Admisson Note: Patient admitted @ 02/05/22 15:38 to [facility]. Medication List reviewed and reconciled.
[2022-02-05] MEDS ORDERED: Toprol Xl 50 MG PO ONE (19:06)
[2022-02-05] MEDS ORDERED: Lopressor 25MG Tab PO ONE (19:09)
[2022-02-05] MEDS: Ms Contin 15 MG PO SCH (19:13)
[2022-02-05] MEDS ORDERED: Toprol-Xl 25MG Tablets ONE (19:14)
[2022-02-05] MEDS ORDERED: GI COCKTAIL 45 ML (Maalox/Lidocaine) PO ONE (20:02)
[2022-02-05] MEDS ORDERED: Tums EX 750 MG ONE (20:12)
[2022-02-05] MEDS ORDERED: MAALOX ES 30 ML UNIT DOSE ONE (20:14)
[2022-02-05] MEDS ORDERED: XYLOCAINE VISCOUS 2% 15 ML CUP ONE (20:15)
[2022-02-05] MEDS ORDERED: Tums EX 750 MG PO PRN (20:21)
[2022-02-05 20:36] LABS: ANION GAP 7.9 MEQ/L (5-15); BLOOD UREA NITROGEN 24 mg/dL (9-20); CHLORIDE 108 mmol/L (98-107); Calcium 8.2 mg/dL (8.4-10.2); Carbon Dioxide 27 mmol/L (22-30); Creatinine 1 0.87 mg/dL (0.66-1.25); EST GLOMERULAR FILTRATION RATE > 60.0 ML/MIN; Glucose 110 mg/dL (74-106); NT PRO BNP 2220 pg/mL (0-900); SODIUM 139 mmol/L (137-145)
[2022-02-05] MEDS ORDERED: ECOTRIN 81 MG PO ONE (20:51)
[2022-02-05] MEDS: Zocor 10MG PO SCH (20:53)
[2022-02-05] MEDS: Pepcid 20 MG VIAL IV SCH (20:53)
[2022-02-05] MEDS ORDERED: Ms Contin 15 MG PO SCH (22:00)
[2022-02-05] MEDS ORDERED: BABY ASPIRIN 81 MG CHEW PO SCH (22:00)
[2022-02-06 05:37] LABS: Absolute Neutrophil Ct (ANC) 13.61 x10^3/uL (1.4-6.9); Basophil (Absolute #) 0.02 x10^3/uL (0-0.4); Eosinophil % 0.1 % (0.00-5.0); Eosinophil (Absolute #) 0.01 x10^3/uL (0-0.5); Hematocrit 29.1 % (42-50); Hemoglobin 8.5 g/dL (12.5-18.0); Lymphocyte (Absolute #) 0.58 x10^3/uL (1.0-4.6); Lymphocytes % 3.9 % (24.0-44.0); Mean Cell Volume 95.4 fL (78-100); Mean Corpuscular Hemoglobin 27.9 pg (26-32); Mean Corpuscular Hgb Concent. 29.2 g/dL (32-36); Mean Platelet Volume 11.6 fL (7.5-11.0); Monocyte (Absolute #) 0.41 x10^3/uL (0.0-1.3); Monocytes % 2.8 % (0.0-12.0); Neutrophil % 92.6 % (36.0-66.0); Platelet Count 188 x10^3/uL (150-450); Red Blood Count 3.05 x10^6/uL (4.1-5.6); Red Cell Distribution Width 20.3 % (11.5-14.0); White Blood Count 14.7 x10^3/uL (4.0-10.5)
[2022-02-06 06:15] LABS: ALBUMIN 2.2 g/dL (3.5-5.0); ALKALINE PHOSPHATASE 298 U/L (38-126); ANION GAP 10.3 MEQ/L (5-15); BLOOD UREA NITROGEN 21 mg/dL (9-20); CHLORIDE 110 mmol/L (98-107); Calcium 8.3 mg/dL (8.4-10.2); Carbon Dioxide 24 mmol/L (22-30); Creatinine 1 0.86 mg/dL (0.66-1.25); EST GLOMERULAR FILTRATION RATE > 60.0 ML/MIN; Glucose 112 mg/dL (74-106); Potassium 4.4 mmol/L (3.5-5.1); SGOT/AST 33 U/L (17-59); SGPT/ALT 16 U/L (0-50); SODIUM 140 mmol/L (137-145); Total Protein 6.4 g/dL (6.3-8.2)
[2022-02-06 06:43] LABS: PREALBUMIN < 3.00 mg/dL (17.6-36.0)
[2022-02-06 06:53] LABS: Slide Review 1 YES
[2022-02-06] MEDS: CARDIZEM DRIP 100 MG/100 ML D5W 100 ML IV PRN (07:30)
[2022-02-06] MEDS ORDERED: PHARMACY DOSING REQUIRED: VANCOMYCIN IV STA (07:33)
[2022-02-06] MEDS ORDERED: PHARMACY DOSING REQUEST MC ONE (08:04)
--- NOTE | 2022-02-06 08:05 | PCM.CONS ---
Podiatry HPI - Consult Date of Consultation Date: 02/06/22 Reason for Consult: RLE pain, swelling and erythema Consulting Provider: MANSOOR BROWN DPM - [facility] History of Present Illness: Abran is a very plesant 71-year-old male with a pertinent medical hx Diabetes mellitus, metastatic colon cancer and recent presentation of cellulitis and pain after a fall to the RLE. Patient indicates leg was significantly swollen to the point his leg was open and weeping with exquisite pain to light touch. Patient was presenting to [facility] center for antibiotics outpatient however was brought into the emergency department due to low blood pressure and tachycardia. He denies any chest pain,SOB, nausea, vomiting or diaphoresis. He denies any other pedal complaints at this time. Medications & Allergies Home Medications: Home Medication List Simvastatin 10 mg [Zocor 10MG] 10 mg PO QHS 06/27/18 [History Confirmed 02/05/22] Lisinopril 20 mg [Zestril 20 MG] 10 mg PO DAILY 07/10/18 [History Confirmed 02/05/22] Metformin HCl 1,000 mg PO BID 07/10/18 [History Confirmed 02/05/22] Sitagliptin Phosphate [Januvia] 100 mg PO DAILY 07/10/18 [History Confirmed 02/05/22] Amlodipine Besylate 5 mg [Norvasc 5 mg] 5 mg PO QHS 02/09/20 [History Confirmed 02/05/22] Aspirin 81 mg PO QHS 02/09/20 [History Confirmed 02/05/22] Iron 65 mg PO DAILY 02/09/20 [History Confirmed 02/05/22] Metoprolol Tartrate 25 mg [Lopressor 25MG Tab] 75 mg PO BID 01/01/22 [History Confirmed 02/05/22] glipiZIDE [Glipizide ER] 2.5 mg PO DAILY 01/01/22 [History Confirmed 02/05/22] Cyanocobalamin (Vitamin B-12) [Cyanocobalamin Injection] 1,000 mcg SQ UD 01/29/22 [History Confirmed 02/05/22] Morphine Sulfate Cr 15 mg [Ms Contin 15 MG] 15 mg PO BID 01/29/22 [History Confirmed 02/05/22] Allergies/Adverse Reactions: Allergies Allergy/AdvReac Type Severity Reaction Status Date / Time No Known Drug Allergies Allergy Verified 02/05/22 11:37 - Past Medical History Past Medical History: Yes Neurological History: No Pertinent History ENT History: No Pertinent History Cardiac History: No Pertinent History Respiratory History: No Pertinent History Endocrine Medical History: Diabetes Type II Musculoskelatal History: No Pertinent History GI Medical History: Colorectal Cancer, Hernia History: No Pertinent History, Other Pyscho-Social History: No Pertinent History Male Reproductive Disorders: No Pertinent History Comment: Colon cancer with mets to liver cancer, facial cancer, lung cancer, still being treated for CA and receiving chemotherapy. Patient no longer taking chemo. - Past Surgical History Past Surgical History: Yes Neuro Surgical History: No Pertinent History Cardiac History: Other Respiratory Surgery: Other GI Surgical History: Colon Resection, Hernia Repair Genitourinary Surgical Hx: No Pertinent History Musculskeletal Surgical Hx: No Pertinent History Male Surgical History: Vasectomy Other Surgical History: T&A as a child,hernia repairs 38 yrs ago in the , colon resection x2, spot removed from lung 2014. States "was cancer,they removed it all". AAA repair with stent and coil. port placed 2 years ago - Social History Smoking Status: Former smoker How long have you smoked: 40 years Exposure to second hand smoke: Yes Alcohol: None Drug Use: marijuana Significant Family History: no pertinent family hx Physical Exam - General General Appearance: no apparent distress, lethargy, thin - Neuro Neurologic: Epicritic and protopathic - Vascular Peripheral Pulses: Posterior tibialis: 2+, Dorsalis-Pedis: 2+ Capillary Refill Time: < 3 seconds Hair Growth: Symmetrical and Bilateral Varicosities: Positive Edema: Pitting Edema Degree: 3+ Skin: Supple, not atrophic Skin Temperature: Warm to touch - Muscular Muscle Strength: 5/5 on all 4 quadrants (Skin exam demonstrating reticulated proximal streaking up leg with apparent lymphangitis, Negative for lymphadenopathy on palpation of inguinal and popliteal lymphnodes. Tender to palpation to the lateral aspect of the right leg at the Tibiotalar joint.) - Narrative Narrative Physical Exam: Podiatry Physical Exam Results - Labs Lab/Micro Results: Lab Results-Last 24 Hours 02/05/22 02/05/22 02/05/22 Range/Units 11:24 12:05 12:05 WBC 14.7 H (4.0-10.5) x10^3/uL RBC 3.05 L (4.1-5.6) x10^6/uL Hgb 8.5 L (12.5-18.0) g/dL Hct 29.0 L (42-50) % MCV 95.1 (78-100) fL MCH 27.9 (26-32) pg MCHC 29.3 L (32-36) g/dL RDW 19.9 H (11.5-14.0) % Plt Count 179 (150-450) x10^3/uL MPV 10.8 (7.5-11.0) fL Gran % 90.0 H (36.0-66.0) % Immature Gran % (Auto) 0.8 H (0.00-0.4) % Nucleat RBC Rel Count 0.0 (0.00-0.1) % Eos # (Auto) 0.01 (0-0.5) x10^3/uL Immature Gran # (Auto) 0.12 H (0.00-0.03) x10^3u/L Absolute Lymphs (auto) 0.55 L (1.0-4.6) x10^3/uL Absolute Monos (auto) 0.78 (0.0-1.3) x10^3/uL Absolute Nucleated RBC 0.00 (0.00-0.01) x10^3u/L Lymphocytes % 3.7 L (24.0-44.0) % Monocytes % 5.3 (0.0-12.0) % Eosinophils % 0.1 (0.00-5.0) % Basophils % 0.1 (0.0-0.4) % Absolute Granulocytes 13.23 H (1.4-6.9) x10^3/uL Basophils # 0.01 (0-0.4) x10^3/uL Sodium 140 (137-145) mmol/L Potassium 4.2 (3.5-5.1) mmol/L Chloride 107 (98-107) mmol/L Carbon Dioxide 24 (22-30) mmol/L Anion Gap 12.2 (5-15) MEQ/L BUN 26 H (9-20) mg/dL Creatinine 1.01 (0.66-1.25) mg/dL Estimated GFR > 60.0 ML/MIN Glucose 106 (74-106) mg/dL POC Glucometer 83 (74 to 106) mg/dL Lactic Acid (0.4-2.0) Calcium 8.4 (8.4-10.2) mg/dL Total Bilirubin 0.80 (0.2-1.3) mg/dL AST 40 (17-59) U/L ALT 18 (0-50) U/L Alkaline Phosphatase 326 H (38-126) U/L Troponin I (0.000-0.034) ng/mL NT-Pro-B Natriuret Pep (0-900) pg/mL Serum Total Protein 6.8 (6.3-8.2) g/dL Albumin 2.3 L (3.5-5.0) g/dL Prealbumin (17.6-36.0) mg/dL Urinalys Dipstick Clnc Urine Color (YELLOW) Urine Appearance (CLEAR) Urine pH (5-6) Ur Specific Owen (1.005-1.025) POC Urine Protein Conf (Negative) Urine Ketones (NEGATIVE) Urine Nitrite (NEGATIVE) Urine Bilirubin (NEGATIVE) Urine Urobilinogen (0-1) mg/dL Urine Leukocytes (NEGATIVE) Urine WBC (Auto) (0-5) /HPF Urine RBC (Auto) (0-2) /HPF U Hyaline Cast (Auto) (0-2) /LPF U Epithel Cells (Auto) (FEW) /HPF Urine Bacteria (Auto) (NEGATIVE) /HPF Urine RBC (0-5) Luke/ul Granular Casts (Auto) (NEGATIVE) /LPF Urine Mucus (Auto) (NEGATIVE) /HPF Ur Culture Indicated? Urine Glucose (NEGATIVE) mg/dL Influenza Type A Ag (NEGATIVE) Influenza Type B Ag (NEGATIVE) RSV (PCR) (Negative) SARS-CoV-2 (PCR) (NEGATIVE) Slides for Path Review YES 02/05/22 02/05/22 02/05/22 Range/Units 12:05 12:40 12:50 WBC (4.0-10.5) x10^3/uL RBC (4.1-5.6) x10^6/uL Hgb (12.5-18.0) g/dL Hct (42-50) % MCV (78-100) fL MCH (26-32) pg MCHC (32-36) g/dL RDW (11.5-14.0) % Plt Count (150-450) x10^3/uL MPV (7.5-11.0) fL Gran % (36.0-66.0) % Immature Gran % (Auto) (0.00-0.4) % Nucleat RBC Rel Count (0.00-0.1) % Eos # (Auto) (0-0.5) x10^3/uL Immature Gran # (Auto) (0.00-0.03) x10^3u/L Absolute Lymphs (auto) (1.0-4.6) x10^3/uL Absolute Monos (auto) (0.0-1.3) x10^3/uL Absolute Nucleated RBC (0.00-0.01) x10^3u/L Lymphocytes % (24.0-44.0) % Monocytes % (0.0-12.0) % Eosinophils % (0.00-5.0) % Basophils % (0.0-0.4) % Absolute Granulocytes (1.4-6.9) x10^3/uL Basophils # (0-0.4) x10^3/uL Sodium (137-145) mmol/L Potassium (3.5-5.1) mmol/L Chloride (98-107) mmol/L Carbon Dioxide (22-30) mmol/L Anion Gap (5-15) MEQ/L BUN (9-20) mg/dL Creatinine (0.66-1.25) mg/dL Estimated GFR ML/MIN Glucose (74-106) mg/dL POC Glucometer (74 to 106) mg/dL Lactic Acid 3.1 H (0.4-2.0) Calcium (8.4-10.2) mg/dL Total Bilirubin (0.2-1.3) mg/dL AST (17-59) U/L ALT (0-50) U/L Alkaline Phosphatase (38-126) U/L Troponin I < 0.012 (0.000-0.034) ng/mL NT-Pro-B Natriuret Pep (0-900) pg/mL Serum Total Protein (6.3-8.2) g/dL Albumin (3.5-5.0) g/dL Prealbumin (17.6-36.0) mg/dL Urinalys Dipstick Clnc Urine Color (YELLOW) Urine Appearance (CLEAR) Urine pH (5-6) Ur Specific Owen (1.005-1.025) POC Urine Protein Conf (Negative) Urine Ketones (NEGATIVE) Urine Nitrite (NEGATIVE) Urine Bilirubin (NEGATIVE) Urine Urobilinogen (0-1) mg/dL Urine Leukocytes (NEGATIVE) Urine WBC (Auto) (0-5) /HPF Urine RBC (Auto) (0-2) /HPF U Hyaline Cast (Auto) (0-2) /LPF U Epithel Cells (Auto) (FEW) /HPF Urine Bacteria (Auto) (NEGATIVE) /HPF Urine RBC (0-5) Luke/ul Granular Casts (Auto) (NEGATIVE) /LPF Urine Mucus (Auto) (NEGATIVE) /HPF Ur Culture Indicated? Urine Glucose (NEGATIVE) mg/dL Influenza Type A Ag NEGATIVE (NEGATIVE) Influenza Type B Ag NEGATIVE (NEGATIVE) RSV (PCR) NEGATIVE (Negative) SARS-CoV-2 (PCR) NEGATIVE (NEGATIVE) Slides for Path Review 02/05/22 02/05/22 02/05/22 Range/Units 13:50 14:30 14:43 WBC (4.0-10.5) x10^3/uL RBC (4.1-5.6) x10^6/uL Hgb (12.5-18.0) g/dL Hct (42-50) % MCV (78-100) fL MCH (26-32) pg MCHC (32-36) g/dL RDW (11.5-14.0) % Plt Count (150-450) x10^3/uL MPV (7.5-11.0) fL Gran % (36.0-66.0) % Immature Gran % (Auto) (0.00-0.4) % Nucleat RBC Rel Count (0.00-0.1) % Eos # (Auto) (0-0.5) x10^3/uL Immature Gran # (Auto) (0.00-0.03) x10^3u/L Absolute Lymphs (auto) (1.0-4.6) x10^3/uL Absolute Monos (auto) (0.0-1.3) x10^3/uL Absolute Nucleated RBC (0.00-0.01) x10^3u/L Lymphocytes % (24.0-44.0) % Monocytes % (0.0-12.0) % Eosinophils % (0.00-5.0) % Basophils % (0.0-0.4) % Absolute Granulocytes (1.4-6.9) x10^3/uL Basophils # (0-0.4) x10^3/uL Sodium (137-145) mmol/L Potassium (3.5-5.1) mmol/L Chloride (98-107) mmol/L Carbon Dioxide (22-30) mmol/L Anion Gap (5-15) MEQ/L BUN (9-20) mg/dL Creatinine (0.66-1.25) mg/dL Estimated GFR ML/MIN Glucose (74-106) mg/dL POC Glucometer (74 to 106) mg/dL Lactic Acid 2.2 H (0.4-2.0) Calcium (8.4-10.2) mg/dL Total Bilirubin (0.2-1.3) mg/dL AST (17-59) U/L ALT (0-50) U/L Alkaline Phosphatase (38-126) U/L Troponin I < 0.012 (0.000-0.034) ng/mL NT-Pro-B Natriuret Pep (0-900) pg/mL Serum Total Protein (6.3-8.2) g/dL Albumin (3.5-5.0) g/dL Prealbumin (17.6-36.0) mg/dL Urinalys Dipstick Clnc MAIN LAB Urine Color KIRK (YELLOW) Urine Appearance CLEAR (CLEAR) Urine pH 5.0 (5-6) Ur Specific Owen >=1.030 (1.005-1.025) POC Urine Protein Conf 30 (Negative) Urine Ketones NEGATIVE (NEGATIVE) Urine Nitrite NEGATIVE (NEGATIVE) Urine Bilirubin SMALL (NEGATIVE) Urine Urobilinogen 1 (0-1) mg/dL Urine Leukocytes NEGATIVE (NEGATIVE) Urine WBC (Auto) 0-2 (0-5) /HPF Urine RBC (Auto) NONE (0-2) /HPF U Hyaline Cast (Auto) 6-10 (0-2) /LPF U Epithel Cells (Auto) NONE (FEW) /HPF Urine Bacteria (Auto) NONE (NEGATIVE) /HPF Urine RBC NEGATIVE (0-5) Luke/ul Granular Casts (Auto) 2-5 (NEGATIVE) /LPF Urine Mucus (Auto) SLIGHT (NEGATIVE) /HPF Ur Culture Indicated? NO Urine Glucose 100 (NEGATIVE) mg/dL Influenza Type A Ag (NEGATIVE) Influenza Type B Ag (NEGATIVE) RSV (PCR) (Negative) SARS-CoV-2 (PCR) (NEGATIVE) Slides for Path Review 02/05/22 02/05/22 02/05/22 Range/Units 15:30 17:49 20:10 WBC (4.0-10.5) x10^3/uL RBC (4.1-5.6) x10^6/uL Hgb (12.5-18.0) g/dL Hct (42-50) % MCV (78-100) fL MCH (26-32) pg MCHC (32-36) g/dL RDW (11.5-14.0) % Plt Count (150-450) x10^3/uL MPV (7.5-11.0) fL Gran % (36.0-66.0) % Immature Gran % (Auto) (0.00-0.4) % Nucleat RBC Rel Count (0.00-0.1) % Eos # (Auto) (0-0.5) x10^3/uL Immature Gran # (Auto) (0.00-0.03) x10^3u/L Absolute Lymphs (auto) (1.0-4.6) x10^3/uL Absolute Monos (auto) (0.0-1.3) x10^3/uL Absolute Nucleated RBC (0.00-0.01) x10^3u/L Lymphocytes % (24.0-44.0) % Monocytes % (0.0-12.0) % Eosinophils % (0.00-5.0) % Basophils % (0.0-0.4) % Absolute Granulocytes (1.4-6.9) x10^3/uL Basophils # (0-0.4) x10^3/uL Sodium (137-145) mmol/L Potassium (3.5-5.1) mmol/L Chloride (98-107) mmol/L Carbon Dioxide (22-30) mmol/L Anion Gap (5-15) MEQ/L BUN (9-20) mg/dL Creatinine (0.66-1.25) mg/dL Estimated GFR ML/MIN Glucose (74-106) mg/dL POC Glucometer 90 (74 to 106) mg/dL Lactic Acid (0.4-2.0) Calcium (8.4-10.2) mg/dL Total Bilirubin (0.2-1.3) mg/dL AST (17-59) U/L ALT (0-50) U/L Alkaline Phosphatase (38-126) U/L Troponin I < 0.012 < 0.012 (0.000-0.034) ng/mL NT-Pro-B Natriuret Pep (0-900) pg/mL Serum Total Protein (6.3-8.2) g/dL Albumin (3.5-5.0) g/dL Prealbumin (17.6-36.0) mg/dL Urinalys Dipstick Clnc Urine Color (YELLOW) Urine Appearance (CLEAR) Urine pH (5-6) Ur Specific Owen (1.005-1.025) POC Urine Protein Conf (Negative) Urine Ketones (NEGATIVE) Urine Nitrite (NEGATIVE) Urine Bilirubin (NEGATIVE) Urine Urobilinogen (0-1) mg/dL Urine Leukocytes (NEGATIVE) Urine WBC (Auto) (0-5) /HPF Urine RBC (Auto) (0-2) /HPF U Hyaline Cast (Auto) (0-2) /LPF U Epithel Cells (Auto) (FEW) /HPF Urine Bacteria (Auto) (NEGATIVE) /HPF Urine RBC (0-5) Luke/ul Granular Casts (Auto) (NEGATIVE) /LPF Urine Mucus (Auto) (NEGATIVE) /HPF Ur Culture Indicated? Urine Glucose (NEGATIVE) mg/dL Influenza Type A Ag (NEGATIVE) Influenza Type B Ag (NEGATIVE) RSV (PCR) (Negative) SARS-CoV-2 (PCR) (NEGATIVE) Slides for Path Review 02/05/22 02/05/22 02/06/22 Range/Units 20:10 23:15 05:00 WBC 14.7 H (4.0-10.5) x10^3/uL RBC 3.05 L (4.1-5.6) x10^6/uL Hgb 8.5 L (12.5-18.0) g/dL Hct 29.1 L (42-50) % MCV 95.4 (78-100) fL MCH 27.9 (26-32) pg MCHC 29.2 L (32-36) g/dL RDW 20.3 H (11.5-14.0) % Plt Count 188 (150-450) x10^3/uL MPV 11.6 H (7.5-11.0) fL Gran % 92.6 H (36.0-66.0) % Immature Gran % (Auto) 0.5 H (0.00-0.4) % Nucleat RBC Rel Count 0.0 (0.00-0.1) % Eos # (Auto) 0.01 (0-0.5) x10^3/uL Immature Gran # (Auto) 0.07 H (0.00-0.03) x10^3u/L Absolute Lymphs (auto) 0.58 L (1.0-4.6) x10^3/uL Absolute Monos (auto) 0.41 (0.0-1.3) x10^3/uL Absolute Nucleated RBC 0.00 (0.00-0.01) x10^3u/L Lymphocytes % 3.9 L (24.0-44.0) % Monocytes % 2.8 (0.0-12.0) % Eosinophils % 0.1 (0.00-5.0) % Basophils % 0.1 (0.0-0.4) % Absolute Granulocytes 13.61 H (1.4-6.9) x10^3/uL Basophils # 0.02 (0-0.4) x10^3/uL Sodium 139 (137-145) mmol/L Potassium 4.0 (3.5-5.1) mmol/L Chloride 108 H (98-107) mmol/L Carbon Dioxide 27 (22-30) mmol/L Anion Gap 7.9 (5-15) MEQ/L BUN 24 H (9-20) mg/dL Creatinine 0.87 (0.66-1.25) mg/dL Estimated GFR > 60.0 ML/MIN Glucose 110 H (74-106) mg/dL POC Glucometer (74 to 106) mg/dL Lactic Acid (0.4-2.0) Calcium 8.2 L (8.4-10.2) mg/dL Total Bilirubin (0.2-1.3) mg/dL AST (17-59) U/L ALT (0-50) U/L Alkaline Phosphatase (38-126) U/L Troponin I < 0.012 (0.000-0.034) ng/mL NT-Pro-B Natriuret Pep 2220 H (0-900) pg/mL Serum Total Protein (6.3-8.2) g/dL Albumin (3.5-5.0) g/dL Prealbumin (17.6-36.0) mg/dL Urinalys Dipstick Clnc Urine Color (YELLOW) Urine Appearance (CLEAR) Urine pH (5-6) Ur Specific Owen (1.005-1.025) POC Urine Protein Conf (Negative) Urine Ketones (NEGATIVE) Urine Nitrite (NEGATIVE) Urine Bilirubin (NEGATIVE) Urine Urobilinogen (0-1) mg/dL Urine Leukocytes (NEGATIVE) Urine WBC (Auto) (0-5) /HPF Urine RBC (Auto) (0-2) /HPF U Hyaline Cast (Auto) (0-2) /LPF U Epithel Cells (Auto) (FEW) /HPF Urine Bacteria (Auto) (NEGATIVE) /HPF Urine RBC (0-5) Luke/ul Granular Casts (Auto) (NEGATIVE) /LPF Urine Mucus (Auto) (NEGATIVE) /HPF Ur Culture Indicated? Urine Glucose (NEGATIVE) mg/dL Influenza Type A Ag (NEGATIVE) Influenza Type B Ag (NEGATIVE) RSV (PCR) (Negative) SARS-CoV-2 (PCR) (NEGATIVE) Slides for Path Review YES 02/06/22 02/06/22 02/06/22 Range/Units 05:00 05:00 07:34 WBC (4.0-10.5) x10^3/uL RBC (4.1-5.6) x10^6/uL Hgb (12.5-18.0) g/dL Hct (42-50) % MCV (78-100) fL MCH (26-32) pg MCHC (32-36) g/dL RDW (11.5-14.0) % Plt Count (150-450) x10^3/uL MPV (7.5-11.0) fL Gran % (36.0-66.0) % Immature Gran % (Auto) (0.00-0.4) % Nucleat RBC Rel Count (0.00-0.1) % Eos # (Auto) (0-0.5) x10^3/uL Immature Gran # (Auto) (0.00-0.03) x10^3u/L Absolute Lymphs (auto) (1.0-4.6) x10^3/uL Absolute Monos (auto) (0.0-1.3) x10^3/uL Absolute Nucleated RBC (0.00-0.01) x10^3u/L Lymphocytes % (24.0-44.0) % Monocytes % (0.0-12.0) % Eosinophils % (0.00-5.0) % Basophils % (0.0-0.4) % Absolute Granulocytes (1.4-6.9) x10^3/uL Basophils # (0-0.4) x10^3/uL Sodium 140 (137-145) mmol/L Potassium 4.4 (3.5-5.1) mmol/L Chloride 110 H (98-107) mmol/L Carbon Dioxide 24 (22-30) mmol/L Anion Gap 10.3 (5-15) MEQ/L BUN 21 H (9-20) mg/dL Creatinine 0.86 (0.66-1.25) mg/dL Estimated GFR > 60.0 ML/MIN Glucose 112 H (74-106) mg/dL POC Glucometer 97 (74 to 106) mg/dL Lactic Acid 2.7 H (0.4-2.0) Calcium 8.3 L (8.4-10.2) mg/dL Total Bilirubin 0.60 (0.2-1.3) mg/dL AST 33 (17-59) U/L ALT 16 (0-50) U/L Alkaline Phosphatase 298 H (38-126) U/L Troponin I (0.000-0.034) ng/mL NT-Pro-B Natriuret Pep (0-900) pg/mL Serum Total Protein 6.4 (6.3-8.2) g/dL Albumin 2.2 L (3.5-5.0) g/dL Prealbumin < 3.00 L (17.6-36.0) mg/dL Urinalys Dipstick Clnc Urine Color (YELLOW) Urine Appearance (CLEAR) Urine pH (5-6) Ur Specific Owen (1.005-1.025) POC Urine Protein Conf (Negative) Urine Ketones (NEGATIVE) Urine Nitrite (NEGATIVE) Urine Bilirubin (NEGATIVE) Urine Urobilinogen (0-1) mg/dL Urine Leukocytes (NEGATIVE) Urine WBC (Auto) (0-5) /HPF Urine RBC (Auto) (0-2) /HPF U Hyaline Cast (Auto) (0-2) /LPF U Epithel Cells (Auto) (FEW) /HPF Urine Bacteria (Auto) (NEGATIVE) /HPF Urine RBC (0-5) Luke/ul Granular Casts (Auto) (NEGATIVE) /LPF Urine Mucus (Auto) (NEGATIVE) /HPF Ur Culture Indicated? Urine Glucose (NEGATIVE) mg/dL Influenza Type A Ag (NEGATIVE) Influenza Type B Ag (NEGATIVE) RSV (PCR) (Negative) SARS-CoV-2 (PCR) (NEGATIVE) Slides for Path Review Accuchecks Date 02/05/22 Date 02/05/22 Time 20:00 Time 20:00 - Radiology Impressions Radiology Exams & Impressions: Radiology Procedures Category Date Time Status ANKLE (3 VIEWS) Routine Exams 02/06/22 Ordered CHEST 1 VIEW (PORTABLE) Stat Exams 02/05/22 11:43 Completed LOWER LEG Stat Exams 02/06/22 Ordered VENOUS UNILAT/LIMITED EXTREMIT [US] Stat Exams 02/05/22 11:45 Completed Assessment/Plan (1) Acute right ankle pain Current Visit: Yes Status: Acute Assessment & Plan: Initial patient examination and evaluation. Radiographs reviewed and discussed with patient demonstrating no fractures to the right lower extremity. Clinical examination is consistent with cellulitis with lymphangitis with proximal streaking based on reticular pattern and significant swelling. Venous Doppler was performed demonstrating no DVT to the right lower extremity making patient an adequate candidate for ongoing compression therapy. Unna boot was applied to the right lower extremity with moderate compression in order to compress and alleviate of volume overload. Vancomycin with pharmacy to dose for streaking cellulitis to the right lower extremity likely caused by a Streptococcus type bacteria. Medicine for medical management Will plan for change of dressing on or Saturday in order to reassess leg swelling and cellulitis. Will follow with you Code(s): M25.571 - PAIN IN RIGHT ANKLE AND JOINTS OF RIGHT FOOT (2) Localized edema due to fluid overload Current Visit: Yes Status: Acute Code(s): E87.70 - FLUID OVERLOAD, UNSPECIFIED (3) Venous insufficiency of right lower extremity Current Visit: Yes Status: Acute Code(s): I87.2 - VENOUS INSUFFICIENCY (CHRONIC) (PERIPHERAL) (4) Acute lymphangitis of right lower extremity Current Visit: Yes Status: Acute Code(s): L03.125 - ACUTE LYMPHANGITIS OF RIGHT LOWER LIMB (5) Cellulitis of right leg Current Visit: Yes Status: Acute Code(s): L03.115 - CELLULITIS OF RIGHT LOWER LIMB
[2022-02-06] MEDS: Sodium Chloride 0.9% 1000 ML 1,000 ML IV SCH ×5 (08:09→23:38)
[2022-02-06] MEDS: VANCOCIN INJECTION*** 0.75 GM in Sodium Chloride 0.9% 250 ML 250 ML IV SCH ×2 (08:34→22:15)
[2022-02-06] MEDS: ENOXAPARIN SODIUM SQ SCH ×2 (08:35→22:15)
[2022-02-06] MEDS: Lopressor 25MG Tab PO SCH ×2 (08:35→08:38)
[2022-02-06] MEDS: Ms Contin 15 MG PO SCH (08:37)
[2022-02-06] MEDS: Pepcid 20 MG VIAL IV SCH ×2 (08:37→22:15)
--- NOTE | 2022-02-06 09:04 | XRAY ---
Indication: Pain. No known injury. Comparison: February 01, 2022. 3 view right ankle using portable technique demonstrates new overlying bandage material limiting evaluation for fine bony detail. Grossly stable osteopenia and ankle soft tissue swelling. No other bony, articular, or soft tissue abnormalities.
--- NOTE | 2022-02-06 09:06 | XRAY ---
Indication: Right leg pain. No known injury. Comparison: None 2 view right lower leg using portable technique demonstrates mid to lower leg/ankle overlying bandage material limiting evaluation for fine bony detail. Diffuse scattered vascular calcifications and age-related osteopenia. No other bony, articular, or soft tissue abnormalities. Ankle reported separately.
[2022-02-06] MEDS ORDERED: NON-FORMULARY ITEM (Iron [Iron] 18 MG Tablet) PO SCH (10:00)
[2022-02-06] MEDS ORDERED: VANCOCIN INJECTION*** 0.75 GM in Sodium Chloride 0.9% 250 ML 250 ML IV SCH (10:00)
[2022-02-06] MEDS: FEOSOL 325 MG PO SCH (10:23)
[2022-02-06] MEDS: MORPHINE SULFATE 2 MG INJ IV PRN ×2 (12:48→19:53)
[2022-02-06] MEDS ORDERED: Ativan 2 MG/1 ML VIAL IV PRN (13:27)
--- NOTE | 2022-02-06 13:58 | PCM.HP ---
History of Present Illness - Chief Complaint Chief Complaint: hypotension History of Present Illness: is a 71 year old male with metastatic colon cancer who states he is not ready to give up. He and his Gena have requested full code status. Patient states he has had cancer for 11 yrs followed by Oncology Dr Gildardo Lebron and PCP Dr Gildardo Hicks. Patient has cellulitis RLE and was in Infusion at [facility] to have outpatient infusion but vitals were unstable and he was transfered to ER. Patient was tachycardic and hypotensive .Doppler RLE was negative for DVT.He has improved some with IV fluids NS at 100/hr .Vancomycin started for cellulitis. B/P systolic as low as 80 and heart rate up to 180, BNP 2,220. Cardiazem drip started and tolerated with heart rate improved 110-130. The goal per patient's is to improve patient's strength so he could resume chemotherapy. PMHx includes HTN,DM2,former smoker,colorectal cancer Dg 11 yrs ago. - Review of Systems Constitutional: Weakness, Weight Loss Eyes: No Symptoms Ears, Nose, & Throat: No Symptoms Respiratory: No Symptoms Cardiac: Other (denies chest pain ,edema unilateral LE) Abdominal/Gastrointestinal: No Symptoms Genitourinary Symptoms: No Symptoms Musculoskeletal: Arthralgias, Fall, Myalgias, Other (,weeping edema) Skin: Cellulitis (RLE) Neurological: Lethargy Psychological: Anxiety Endocrine: Other (DM2 states has lost alot of weight but has not been taken off of diabetic meds/pills ) Hematologic/Lymphatic: Other Medications & Allergies Home Medications: Home Medication List Simvastatin 10 mg [Zocor 10MG] 10 mg PO QHS 06/27/18 [History Confirmed 02/05/22] Lisinopril 20 mg [Zestril 20 MG] 10 mg PO DAILY 07/10/18 [History Confirmed 02/05/22] Metformin HCl 1,000 mg PO BID 07/10/18 [History Confirmed 02/05/22] Sitagliptin Phosphate [Januvia] 100 mg PO DAILY 07/10/18 [History Confirmed 02/05/22] Amlodipine Besylate 5 mg [Norvasc 5 mg] 5 mg PO QHS 02/09/20 [History Confirmed 02/05/22] Aspirin 81 mg PO QHS 02/09/20 [History Confirmed 02/05/22] Iron 65 mg PO DAILY 02/09/20 [History Confirmed 02/05/22] Metoprolol Tartrate 25 mg [Lopressor 25MG Tab] 75 mg PO BID 01/01/22 [History Confirmed 02/05/22] glipiZIDE [Glipizide ER] 2.5 mg PO DAILY 01/01/22 [History Confirmed 02/05/22] Cyanocobalamin (Vitamin B-12) [Cyanocobalamin Injection] 1,000 mcg SQ UD 01/29/22 [History Confirmed 02/05/22] Morphine Sulfate Cr 15 mg [Ms Contin 15 MG] 15 mg PO BID 01/29/22 [History Confirmed 02/05/22] Allergies/Adverse Reactions: Allergies Allergy/AdvReac Type Severity Reaction Status Date / Time No Known Drug Allergies Allergy Verified 02/05/22 11:37 - Past Medical History Past Medical History: Yes Neurological History: No Pertinent History ENT History: No Pertinent History Cardiac History: No Pertinent History Respiratory History: No Pertinent History Endocrine Medical History: Diabetes Type II Musculoskelatal History: No Pertinent History GI Medical History: Colorectal Cancer, Hernia History: No Pertinent History, Other Pyscho-Social History: No Pertinent History Male Reproductive Disorders: No Pertinent History Comment: Colon cancer with mets to liver cancer, facial cancer, lung cancer, still being treated for CA and receiving chemotherapy. Patient no longer taking chemo. - Past Surgical History Past Surgical History: Yes Neuro Surgical History: No Pertinent History Cardiac History: Other Respiratory Surgery: Other GI Surgical History: Colon Resection, Hernia Repair Genitourinary Surgical Hx: No Pertinent History Musculskeletal Surgical Hx: No Pertinent History Male Surgical History: Vasectomy Other Surgical History: T&A as a child,hernia repairs 40 yrs ago in the , colon resection x2, spot removed from lung 2014. States "was cancer,they removed it all". AAA repair with stent and coil. port placed 2 years ago - Social History Smoking Status: Former smoker How long have you smoked: 40 years Exposure to second hand smoke: Yes Alcohol: None Drug Use: marijuana Significant Family History: no pertinent family hx - Physical Exam Vital Signs: Vital Signs - 24 hr Temp Pulse Resp BP BP Pulse Ox 02/06/22 13:35 103 H 100/50 02/06/22 12:59 98 F 122 H 18 70/45 97 02/06/22 12:42 96 H 73/45 02/06/22 11:57 118 H 18 83/61 96 02/06/22 10:52 118 H 18 88/52 96 02/06/22 10:00 113 H 18 88/52 96 02/06/22 09:04 108 H 89/47 02/06/22 09:00 108 H 18 89/47 96 02/06/22 08:30 120 H 102/59 02/06/22 07:58 97.7 F 112 H 18 102/68 02/06/22 07:55 167 H 95/63 02/06/22 07:29 167 H 18 95/68 02/06/22 04:00 97.7 F 137 H 16 95/50 90 L 02/05/22 23:15 97.3 F 113 H 16 95/53 100 02/05/22 19:23 97.6 F 115 H 16 98/61 96 02/05/22 15:44 97.3 F 112 H 19 82/50 99 02/05/22 15:43 99 02/05/22 15:04 94 L 02/05/22 15:04 108 H 18 88/57 98 02/05/22 14:05 106 H 18 94/66 92 L General Appearance: thin (weak lying in bed but talkative, is at bedside.) Neurologic Exam: alert, oriented x 3, normal mood/affect Eye Exam: eyes nml inspection Ears, Nose, Throat Exam: normal ENT inspection Neck Exam: normal inspection Respiratory Exam: normal breath sounds Cardiovascular Exam: tachycardia Rectal Exam: not done Back Exam: normal inspection Extremity Exam: other (RLE weeping edema and tenderness) Skin Exam: warm, dry, pale Wound Assessment: Skin/Wound Assessment Wound/Incision Assessment Start: 02/05/22 16:10 Text: Status: Active Freq: Q6H Protocol: Document 02/06/22 07:58 MAYURI (Rec: 02/06/22 08:03 MAYURI [id number]) Wound/Incision Assessment Coccyx Wound Assessment Shift Assessment Wound Type Abrasion Comment small abrasion noted. Right Lower Arm Wound Assessment Shift Assessment Wound Type Abrasion Results - Labs Lab/Micro Results: Lab Results-Last 24 Hours 07/11/22 07/11/22 07/11/22 Range/Units 12:05 12:50 13:50 WBC 14.7 H (4.0-10.5) x10^3/uL RBC 3.05 L (4.1-5.6) x10^6/uL Hgb 8.5 L (12.5-18.0) g/dL Hct 29.0 L (42-50) % MCV 95.1 (78-100) fL MCH 27.9 (26-32) pg MCHC 29.3 L (32-36) g/dL RDW 19.9 H (11.5-14.0) % Plt Count 179 (150-450) x10^3/uL MPV 10.8 (7.5-11.0) fL Gran % 90.0 H (36.0-66.0) % Immature Gran % (Auto) 0.8 H (0.00-0.4) % Nucleat RBC Rel Count 0.0 (0.00-0.1) % Eos # (Auto) 0.01 (0-0.5) x10^3/uL Immature Gran # (Auto) 0.12 H (0.00-0.03) x10^3u/L Absolute Lymphs (auto) 0.55 L (1.0-4.6) x10^3/uL Absolute Monos (auto) 0.78 (0.0-1.3) x10^3/uL Absolute Nucleated RBC 0.00 (0.00-0.01) x10^3u/L Lymphocytes % 3.7 L (24.0-44.0) % Monocytes % 5.3 (0.0-12.0) % Eosinophils % 0.1 (0.00-5.0) % Basophils % 0.1 (0.0-0.4) % Absolute Granulocytes 13.23 H (1.4-6.9) x10^3/uL Basophils # 0.01 (0-0.4) x10^3/uL Sodium (137-145) mmol/L Potassium (3.5-5.1) mmol/L Chloride (98-107) mmol/L Carbon Dioxide (22-30) mmol/L Anion Gap (5-15) MEQ/L BUN (9-20) mg/dL Creatinine (0.66-1.25) mg/dL Estimated GFR ML/MIN Glucose (74-106) mg/dL POC Glucometer (74 to 106) mg/dL Lactic Acid (0.4-2.0) Calcium (8.4-10.2) mg/dL Magnesium (1.6-2.3) mg/dL Total Bilirubin (0.2-1.3) mg/dL AST (17-59) U/L ALT (0-50) U/L Alkaline Phosphatase (38-126) U/L Troponin I (0.000-0.034) ng/mL NT-Pro-B Natriuret Pep (0-900) pg/mL Serum Total Protein (6.3-8.2) g/dL Albumin (3.5-5.0) g/dL Prealbumin (17.6-36.0) mg/dL Urinalys Dipstick Clnc MAIN LAB Urine Color KIRK (YELLOW) Urine Appearance CLEAR (CLEAR) Urine pH 5.0 (5-6) Ur Specific [place] >=1.030 (1.005-1.025) POC Urine Protein Conf 30 (Negative) Urine Ketones NEGATIVE (NEGATIVE) Urine Nitrite NEGATIVE (NEGATIVE) Urine Bilirubin SMALL (NEGATIVE) Urine Urobilinogen 1 (0-1) mg/dL Urine Leukocytes NEGATIVE (NEGATIVE) Urine WBC (Auto) 0-2 (0-5) /HPF Urine RBC (Auto) NONE (0-2) /HPF U Hyaline Cast (Auto) 6-10 (0-2) /LPF U Epithel Cells (Auto) NONE (FEW) /HPF Urine Bacteria (Auto) NONE (NEGATIVE) /HPF Urine RBC NEGATIVE (0-5) Luke/ul Granular Casts (Auto) 2-5 (NEGATIVE) /LPF Urine Mucus (Auto) SLIGHT (NEGATIVE) /HPF Ur Culture Indicated? NO Urine Glucose 100 (NEGATIVE) mg/dL Influenza Type A Ag NEGATIVE (NEGATIVE) Influenza Type B Ag NEGATIVE (NEGATIVE) RSV (PCR) NEGATIVE (Negative) SARS-CoV-2 (PCR) NEGATIVE (NEGATIVE) Slides for Path Review YES 02/05/22 02/05/22 02/05/22 Range/Units 14:30 14:43 15:30 WBC (4.0-10.5) x10^3/uL RBC (4.1-5.6) x10^6/uL Hgb (12.5-18.0) g/dL Hct (42-50) % MCV (78-100) fL MCH (26-32) pg MCHC (32-36) g/dL RDW (11.5-14.0) % Plt Count (150-450) x10^3/uL MPV (7.5-11.0) fL Gran % (36.0-66.0) % Immature Gran % (Auto) (0.00-0.4) % Nucleat RBC Rel Count (0.00-0.1) % Eos # (Auto) (0-0.5) x10^3/uL Immature Gran # (Auto) (0.00-0.03) x10^3u/L Absolute Lymphs (auto) (1.0-4.6) x10^3/uL Absolute Monos (auto) (0.0-1.3) x10^3/uL Absolute Nucleated RBC (0.00-0.01) x10^3u/L Lymphocytes % (24.0-44.0) % Monocytes % (0.0-12.0) % Eosinophils % (0.00-5.0) % Basophils % (0.0-0.4) % Absolute Granulocytes (1.4-6.9) x10^3/uL Basophils # (0-0.4) x10^3/uL Sodium (137-145) mmol/L Potassium (3.5-5.1) mmol/L Chloride (98-107) mmol/L Carbon Dioxide (22-30) mmol/L Anion Gap (5-15) MEQ/L BUN (9-20) mg/dL Creatinine (0.66-1.25) mg/dL Estimated GFR ML/MIN Glucose (74-106) mg/dL POC Glucometer (74 to 106) mg/dL Lactic Acid 2.2 H (0.4-2.0) Calcium (8.4-10.2) mg/dL Magnesium (1.6-2.3) mg/dL Total Bilirubin (0.2-1.3) mg/dL AST (17-59) U/L ALT (0-50) U/L Alkaline Phosphatase (38-126) U/L Troponin I < 0.012 < 0.012 (0.000-0.034) ng/mL NT-Pro-B Natriuret Pep (0-900) pg/mL Serum Total Protein (6.3-8.2) g/dL Albumin (3.5-5.0) g/dL Prealbumin (17.6-36.0) mg/dL Urinalys Dipstick Clnc Urine Color (YELLOW) Urine Appearance (CLEAR) Urine pH (5-6) Ur Specific [place] (1.005-1.025) POC Urine Protein Conf (Negative) Urine Ketones (NEGATIVE) Urine Nitrite (NEGATIVE) Urine Bilirubin (NEGATIVE) Urine Urobilinogen (0-1) mg/dL Urine Leukocytes (NEGATIVE) Urine WBC (Auto) (0-5) /HPF Urine RBC (Auto) (0-2) /HPF U Hyaline Cast (Auto) (0-2) /LPF U Epithel Cells (Auto) (FEW) /HPF Urine Bacteria (Auto) (NEGATIVE) /HPF Urine RBC (0-5) Luke/ul Granular Casts (Auto) (NEGATIVE) /LPF Urine Mucus (Auto) (NEGATIVE) /HPF Ur Culture Indicated? Urine Glucose (NEGATIVE) mg/dL Influenza Type A Ag (NEGATIVE) Influenza Type B Ag (NEGATIVE) RSV (PCR) (Negative) SARS-CoV-2 (PCR) (NEGATIVE) Slides for Path Review 02/05/22 02/05/22 02/05/22 Range/Units 17:49 20:10 20:10 WBC (4.0-10.5) x10^3/uL RBC (4.1-5.6) x10^6/uL Hgb (12.5-18.0) g/dL Hct (42-50) % MCV (78-100) fL MCH (26-32) pg MCHC (32-36) g/dL RDW (11.5-14.0) % Plt Count (150-450) x10^3/uL MPV (7.5-11.0) fL Gran % (36.0-66.0) % Immature Gran % (Auto) (0.00-0.4) % Nucleat RBC Rel Count (0.00-0.1) % Eos # (Auto) (0-0.5) x10^3/uL Immature Gran # (Auto) (0.00-0.03) x10^3u/L Absolute Lymphs (auto) (1.0-4.6) x10^3/uL Absolute Monos (auto) (0.0-1.3) x10^3/uL Absolute Nucleated RBC (0.00-0.01) x10^3u/L Lymphocytes % (24.0-44.0) % Monocytes % (0.0-12.0) % Eosinophils % (0.00-5.0) % Basophils % (0.0-0.4) % Absolute Granulocytes (1.4-6.9) x10^3/uL Basophils # (0-0.4) x10^3/uL Sodium 139 (137-145) mmol/L Potassium 4.0 (3.5-5.1) mmol/L Chloride 108 H (98-107) mmol/L Carbon Dioxide 27 (22-30) mmol/L Anion Gap 7.9 (5-15) MEQ/L BUN 24 H (9-20) mg/dL Creatinine 0.87 (0.66-1.25) mg/dL Estimated GFR > 60.0 ML/MIN Glucose 110 H (74-106) mg/dL POC Glucometer 90 (74 to 106) mg/dL Lactic Acid (0.4-2.0) Calcium 8.2 L (8.4-10.2) mg/dL Magnesium (1.6-2.3) mg/dL Total Bilirubin (0.2-1.3) mg/dL AST (17-59) U/L ALT (0-50) U/L Alkaline Phosphatase (38-126) U/L Troponin I < 0.012 (0.000-0.034) ng/mL NT-Pro-B Natriuret Pep 2220 H (0-900) pg/mL Serum Total Protein (6.3-8.2) g/dL Albumin (3.5-5.0) g/dL Prealbumin (17.6-36.0) mg/dL Urinalys Dipstick Clnc Urine Color (YELLOW) Urine Appearance (CLEAR) Urine pH (5-6) Ur Specific [place] (1.005-1.025) POC Urine Protein Conf (Negative) Urine Ketones (NEGATIVE) Urine Nitrite (NEGATIVE) Urine Bilirubin (NEGATIVE) Urine Urobilinogen (0-1) mg/dL Urine Leukocytes (NEGATIVE) Urine WBC (Auto) (0-5) /HPF Urine RBC (Auto) (0-2) /HPF U Hyaline Cast (Auto) (0-2) /LPF U Epithel Cells (Auto) (FEW) /HPF Urine Bacteria (Auto) (NEGATIVE) /HPF Urine RBC (0-5) Luke/ul Granular Casts (Auto) (NEGATIVE) /LPF Urine Mucus (Auto) (NEGATIVE) /HPF Ur Culture Indicated? Urine Glucose (NEGATIVE) mg/dL Influenza Type A Ag (NEGATIVE) Influenza Type B Ag (NEGATIVE) RSV (PCR) (Negative) SARS-CoV-2 (PCR) (NEGATIVE) Slides for Path Review 02/05/22 02/06/22 02/06/22 Range/Units 23:15 05:00 05:00 WBC 14.7 H (4.0-10.5) x10^3/uL RBC 3.05 L (4.1-5.6) x10^6/uL Hgb 8.5 L (12.5-18.0) g/dL Hct 29.1 L (42-50) % MCV 95.4 (78-100) fL MCH 27.9 (26-32) pg MCHC 29.2 L (32-36) g/dL RDW 20.3 H (11.5-14.0) % Plt Count 188 (150-450) x10^3/uL MPV 11.6 H (7.5-11.0) fL Gran % 92.6 H (36.0-66.0) % Immature Gran % (Auto) 0.5 H (0.00-0.4) % Nucleat RBC Rel Count 0.0 (0.00-0.1) % Eos # (Auto) 0.01 (0-0.5) x10^3/uL Immature Gran # (Auto) 0.07 H (0.00-0.03) x10^3u/L Absolute Lymphs (auto) 0.58 L (1.0-4.6) x10^3/uL Absolute Monos (auto) 0.41 (0.0-1.3) x10^3/uL Absolute Nucleated RBC 0.00 (0.00-0.01) x10^3u/L Lymphocytes % 3.9 L (24.0-44.0) % Monocytes % 2.8 (0.0-12.0) % Eosinophils % 0.1 (0.00-5.0) % Basophils % 0.1 (0.0-0.4) % Absolute Granulocytes 13.61 H (1.4-6.9) x10^3/uL Basophils # 0.02 (0-0.4) x10^3/uL Sodium (137-145) mmol/L Potassium (3.5-5.1) mmol/L Chloride (98-107) mmol/L Carbon Dioxide (22-30) mmol/L Anion Gap (5-15) MEQ/L BUN (9-20) mg/dL Creatinine (0.66-1.25) mg/dL Estimated GFR ML/MIN Glucose (74-106) mg/dL POC Glucometer (74 to 106) mg/dL Lactic Acid 2.7 H (0.4-2.0) Calcium (8.4-10.2) mg/dL Magnesium (1.6-2.3) mg/dL Total Bilirubin (0.2-1.3) mg/dL AST (17-59) U/L ALT (0-50) U/L Alkaline Phosphatase (38-126) U/L Troponin I < 0.012 (0.000-0.034) ng/mL NT-Pro-B Natriuret Pep (0-900) pg/mL Serum Total Protein (6.3-8.2) g/dL Albumin (3.5-5.0) g/dL Prealbumin (17.6-36.0) mg/dL Urinalys Dipstick Clnc Urine Color (YELLOW) Urine Appearance (CLEAR) Urine pH (5-6) Ur Specific [place] (1.005-1.025) POC Urine Protein Conf (Negative) Urine Ketones (NEGATIVE) Urine Nitrite (NEGATIVE) Urine Bilirubin (NEGATIVE) Urine Urobilinogen (0-1) mg/dL Urine Leukocytes (NEGATIVE) Urine WBC (Auto) (0-5) /HPF Urine RBC (Auto) (0-2) /HPF U Hyaline Cast (Auto) (0-2) /LPF U Epithel Cells (Auto) (FEW) /HPF Urine Bacteria (Auto) (NEGATIVE) /HPF Urine RBC (0-5) Luke/ul Granular Casts (Auto) (NEGATIVE) /LPF Urine Mucus (Auto) (NEGATIVE) /HPF Ur Culture Indicated? Urine Glucose (NEGATIVE) mg/dL Influenza Type A Ag (NEGATIVE) Influenza Type B Ag (NEGATIVE) RSV (PCR) (Negative) SARS-CoV-2 (PCR) (NEGATIVE) Slides for Path Review YES 02/06/22 02/06/22 02/06/22 Range/Units 05:00 07:34 07:38 WBC (4.0-10.5) x10^3/uL RBC (4.1-5.6) x10^6/uL Hgb (12.5-18.0) g/dL Hct (42-50) % MCV (78-100) fL MCH (26-32) pg MCHC (32-36) g/dL RDW (11.5-14.0) % Plt Count (150-450) x10^3/uL MPV (7.5-11.0) fL Gran % (36.0-66.0) % Immature Gran % (Auto) (0.00-0.4) % Nucleat RBC Rel Count (0.00-0.1) % Eos # (Auto) (0-0.5) x10^3/uL Immature Gran # (Auto) (0.00-0.03) x10^3u/L Absolute Lymphs (auto) (1.0-4.6) x10^3/uL Absolute Monos (auto) (0.0-1.3) x10^3/uL Absolute Nucleated RBC (0.00-0.01) x10^3u/L Lymphocytes % (24.0-44.0) % Monocytes % (0.0-12.0) % Eosinophils % (0.00-5.0) % Basophils % (0.0-0.4) % Absolute Granulocytes (1.4-6.9) x10^3/uL Basophils # (0-0.4) x10^3/uL Sodium 140 (137-145) mmol/L Potassium 4.4 (3.5-5.1) mmol/L Chloride 110 H (98-107) mmol/L Carbon Dioxide 24 (22-30) mmol/L Anion Gap 10.3 (5-15) MEQ/L BUN 21 H (9-20) mg/dL Creatinine 0.86 (0.66-1.25) mg/dL Estimated GFR > 60.0 ML/MIN Glucose 112 H (74-106) mg/dL POC Glucometer 97 (74 to 106) mg/dL Lactic Acid 2.2 H (0.4-2.0) Calcium 8.3 L (8.4-10.2) mg/dL Magnesium (1.6-2.3) mg/dL Total Bilirubin 0.60 (0.2-1.3) mg/dL AST 33 (17-59) U/L ALT 16 (0-50) U/L Alkaline Phosphatase 298 H (38-126) U/L Troponin I (0.000-0.034) ng/mL NT-Pro-B Natriuret Pep (0-900) pg/mL Serum Total Protein 6.4 (6.3-8.2) g/dL Albumin 2.2 L (3.5-5.0) g/dL Prealbumin < 3.00 L (17.6-36.0) mg/dL Urinalys Dipstick Clnc Urine Color (YELLOW) Urine Appearance (CLEAR) Urine pH (5-6) Ur Specific [place] (1.005-1.025) POC Urine Protein Conf (Negative) Urine Ketones (NEGATIVE) Urine Nitrite (NEGATIVE) Urine Bilirubin (NEGATIVE) Urine Urobilinogen (0-1) mg/dL Urine Leukocytes (NEGATIVE) Urine WBC (Auto) (0-5) /HPF Urine RBC (Auto) (0-2) /HPF U Hyaline Cast (Auto) (0-2) /LPF U Epithel Cells (Auto) (FEW) /HPF Urine Bacteria (Auto) (NEGATIVE) /HPF Urine RBC (0-5) Luke/ul Granular Casts (Auto) (NEGATIVE) /LPF Urine Mucus (Auto) (NEGATIVE) /HPF Ur Culture Indicated? Urine Glucose (NEGATIVE) mg/dL Influenza Type A Ag (NEGATIVE) Influenza Type B Ag (NEGATIVE) RSV (PCR) (Negative) SARS-CoV-2 (PCR) (NEGATIVE) Slides for Path Review 02/06/22 02/06/22 Range/Units 07:56 11:51 WBC (4.0-10.5) x10^3/uL RBC (4.1-5.6) x10^6/uL Hgb (12.5-18.0) g/dL Hct (42-50) % MCV (78-100) fL MCH (26-32) pg MCHC (32-36) g/dL RDW (11.5-14.0) % Plt Count (150-450) x10^3/uL MPV (7.5-11.0) fL Gran % (36.0-66.0) % Immature Gran % (Auto) (0.00-0.4) % Nucleat RBC Rel Count (0.00-0.1) % Eos # (Auto) (0-0.5) x10^3/uL Immature Gran # (Auto) (0.00-0.03) x10^3u/L Absolute Lymphs (auto) (1.0-4.6) x10^3/uL Absolute Monos (auto) (0.0-1.3) x10^3/uL Absolute Nucleated RBC (0.00-0.01) x10^3u/L Lymphocytes % (24.0-44.0) % Monocytes % (0.0-12.0) % Eosinophils % (0.00-5.0) % Basophils % (0.0-0.4) % Absolute Granulocytes (1.4-6.9) x10^3/uL Basophils # (0-0.4) x10^3/uL Sodium (137-145) mmol/L Potassium (3.5-5.1) mmol/L Chloride (98-107) mmol/L Carbon Dioxide (22-30) mmol/L Anion Gap (5-15) MEQ/L BUN (9-20) mg/dL Creatinine (0.66-1.25) mg/dL Estimated GFR ML/MIN Glucose (74-106) mg/dL POC Glucometer 142 H (74 to 106) mg/dL Lactic Acid (0.4-2.0) Calcium (8.4-10.2) mg/dL Magnesium 2.0 (1.6-2.3) mg/dL Total Bilirubin (0.2-1.3) mg/dL AST (17-59) U/L ALT (0-50) U/L Alkaline Phosphatase (38-126) U/L Troponin I (0.000-0.034) ng/mL NT-Pro-B Natriuret Pep (0-900) pg/mL Serum Total Protein (6.3-8.2) g/dL Albumin (3.5-5.0) g/dL Prealbumin (17.6-36.0) mg/dL Urinalys Dipstick Clnc Urine Color (YELLOW) Urine Appearance (CLEAR) Urine pH (5-6) Ur Specific [place] (1.005-1.025) POC Urine Protein Conf (Negative) Urine Ketones (NEGATIVE) Urine Nitrite (NEGATIVE) Urine Bilirubin (NEGATIVE) Urine Urobilinogen (0-1) mg/dL Urine Leukocytes (NEGATIVE) Urine WBC (Auto) (0-5) /HPF Urine RBC (Auto) (0-2) /HPF U Hyaline Cast (Auto) (0-2) /LPF U Epithel Cells (Auto) (FEW) /HPF Urine Bacteria (Auto) (NEGATIVE) /HPF Urine RBC (0-5) Luke/ul Granular Casts (Auto) (NEGATIVE) /LPF Urine Mucus (Auto) (NEGATIVE) /HPF Ur Culture Indicated? Urine Glucose (NEGATIVE) mg/dL Influenza Type A Ag (NEGATIVE) Influenza Type B Ag (NEGATIVE) RSV (PCR) (Negative) SARS-CoV-2 (PCR) (NEGATIVE) Slides for Path Review Accuchecks Date 02/05/22 Date 02/05/22 Time 20:00 Time 20:00 - Radiology Impressions Radiology Exams & Impressions: Radiology Procedures Category Date Time Status ANKLE (3 VIEWS) Routine Exams 02/06/22 08:22 Completed CHEST 1 VIEW (PORTABLE) Stat Exams 02/05/22 11:43 Completed LOWER LEG Stat Exams 02/06/22 08:22 Completed VENOUS UNILAT/LIMITED EXTREMIT [US] Stat Exams 02/05/22 11:45 Completed Assessment/Plan (1) Cellulitis of right leg Current Visit: Yes Status: Acute Assessment & Plan: Vancomycin started in ER Code(s): L03.115 - CELLULITIS OF RIGHT LOWER LIMB (2) Hypotension Current Visit: Yes Status: Acute Assessment & Plan: IV hydration and minitor Code(s): I95.9 - HYPOTENSION, UNSPECIFIED (3) Tachycardia Current Visit: Yes Status: Acute Assessment & Plan: Patient is on Metoprolol 75mg bid at home. Dose reduced to 25mg due to hypotension.,monitor on Tele Code(s): R00.0 - TACHYCARDIA, UNSPECIFIED (4) Type 2 diabetes mellitus Current Visit: No Status: Chronic Qualifiers: Diabetes mellitus assisted insulin use: without terminologist use Diabetes mellitus complication status: without complication Qualified Code(s): E11.9 - Type 2 diabetes mellitus without complications Assessment & Plan: all diabetic meds held. Patient has lost 50 #s and reports low sugars at home.,monitor (5) Colon cancer metastasized to bone Current Visit: Yes Status: Chronic Assessment & Plan: Dr Gildardo Lebron managing and I consulted with him He advised transfer to [facility]. Chemo had been discontinued due to weakness. Code(s): C18.9 - MALIGNANT NEOPLASM OF COLON, UNSPECIFIED; C79.51 - SECONDARY MALIGNANT NEOPLASM OF BONE (6) HTN (hypertension) Current Visit: Yes Status: Acute Qualifiers: Hypertension type: primary hypertension Qualified Code(s): I10 - Essential (primary) hypertension Assessment & Plan: meds held ,Metorpolol dose lowed due to hypotension on admission Code(s): I10 - ESSENTIAL (PRIMARY) HYPERTENSION
[2022-02-06] MEDS ORDERED: Ativan 0.5 MG PO PRN (16:55)
[2022-02-06] MEDS: Ativan 2 MG/1 ML VIAL IV PRN (20:20)
[2022-02-06] MEDS ORDERED: ECOTRIN 81 MG PO SCH (22:00)
[2022-02-07] MEDS: Ativan 2 MG/1 ML VIAL IV PRN ×2 (00:19→04:35)
[2022-02-07] MEDS: Lopressor 25MG Tab PO SCH ×2 (02:16→10:32)
[2022-02-07] MEDS: Ms Contin 15 MG PO SCH ×2 (02:17→10:32)
[2022-02-07] MEDS: Zocor 10MG PO SCH (02:17)
[2022-02-07] MEDS: CARDIZEM DRIP 100 MG/100 ML D5W 100 ML IV PRN ×3 (03:00→15:04)
[2022-02-07 05:55] LABS: Absolute Neutrophil Ct (ANC) 9.42 x10^3/uL (1.4-6.9); Basophil (Absolute #) 0.01 x10^3/uL (0-0.4); Eosinophil % 0.2 % (0.00-5.0); Eosinophil (Absolute #) 0.02 x10^3/uL (0-0.5); Hematocrit 28.7 % (42-50); Hemoglobin 8.3 g/dL (12.5-18.0); Lymphocyte (Absolute #) 0.45 x10^3/uL (1.0-4.6); Lymphocytes % 4.2 % (24.0-44.0); Mean Cell Volume 95.7 fL (78-100); Mean Corpuscular Hemoglobin 27.7 pg (26-32); Mean Corpuscular Hgb Concent. 28.9 g/dL (32-36); Mean Platelet Volume 11.5 fL (7.5-11.0); Monocyte (Absolute #) 0.75 x10^3/uL (0.0-1.3); Neutrophil % 87.9 % (36.0-66.0); Platelet Count 157 x10^3/uL (150-450); White Blood Count 10.7 x10^3/uL (4.0-10.5)
[2022-02-07 06:19] LABS: ALKALINE PHOSPHATASE 208 U/L (38-126); ANION GAP 10.9 MEQ/L (5-15); BLOOD UREA NITROGEN 14 mg/dL (9-20); CHLORIDE 115 mmol/L (98-107); Calcium 7.8 mg/dL (8.4-10.2); Carbon Dioxide 21 mmol/L (22-30); Creatinine 1 0.76 mg/dL (0.66-1.25); EST GLOMERULAR FILTRATION RATE > 60.0 ML/MIN; Glucose 61 mg/dL (74-106); Potassium 3.9 mmol/L (3.5-5.1); SGOT/AST 33 U/L (17-59); SGPT/ALT 13 U/L (0-50); SODIUM 143 mmol/L (137-145); Total Protein 5.9 g/dL (6.3-8.2)
[2022-02-07] MEDS ORDERED: D50W 50 ml Abboject IV PRN (07:40)
[2022-02-07] MEDS ORDERED: D5W/0.45NS W/ 20mEq KCl 1000 ML 1,000 ML IV SCH (09:30)
[2022-02-07] MEDS: MORPHINE SULFATE 2 MG INJ IV PRN (09:31)
[2022-02-07] MEDS: VANCOCIN INJECTION*** 0.75 GM in Sodium Chloride 0.9% 250 ML 250 ML IV SCH (09:31)
[2022-02-07] MEDS: Pepcid 20 MG VIAL IV SCH (09:31)
[2022-02-07] MEDS: ENOXAPARIN SODIUM SQ SCH (09:32)
[2022-02-07 10:01] LABS: Slide Review 1 YES
[2022-02-07] MEDS: FEOSOL 325 MG PO SCH (10:32)
--- NOTE | 2022-02-07 13:38 | PCM.NOTE ---
Date and Time: 02/07/22 7823 Subjective Assessment: rounded on patient today. I spoke to patient's and oncologist Dr Alo Lebron by phone this morning. Thoughts are to transfer patient to a higher level of care under Hospitalist at [facility] with Oncology to consult. CTHead needed per Hospitalist ,Dr Su, prior to transfer. Dr Link and patient's agreeable to plan. Objective Exam General Appearance: other (not alert or oriented,restless- see Dr Link's note) Wound Assessment: Skin/Wound Assessment Wound/Incision Assessment Start: 02/05/22 16:10 Text: Status: Active Freq: Q6H Protocol: Document 02/07/22 07:53 ANNY (Rec: 02/07/22 08:03 ANNY [id number]) Wound/Incision Assessment Right Other Wound Assessment Shift Assessment Wound Type CELLULITIS Wound Stage Non Pressure Wound Dressing Status Dry & Intact Drainage Amount None Primary Dressing UNABOOT Coccyx Wound Assessment Shift Assessment Wound Type Pressure Ulcer Wound Stage Stage II Drainage Amount None Comment BARRIER CREAM APPLIED Right Lower Arm Wound Assessment Shift Assessment Wound Type Abrasion OBJECTIVE DATA Vital Signs: Vital Signs - 24 hr Temp Pulse Resp BP BP Pulse Ox 02/07/22 13:00 121 H 20 122/70 122/70 02/07/22 12:00 97.6 F 126 H 21 124/65 124/65 95 02/07/22 11:00 116 H 23 114/73 114/73 02/07/22 10:00 118 H 19 100/67 100/67 95 02/07/22 09:00 123 H 25 H 111/74 111/74 02/07/22 08:00 98.2 F 130 H 20 112/51 112/57 95 02/07/22 06:16 120 H 116/73 02/07/22 06:00 124 H 22 116/73 91 L 02/07/22 05:42 91 L 02/07/22 05:17 144 H 107/81 02/07/22 05:16 130 H 107/81 02/07/22 04:11 135 H 114/81 02/07/22 04:00 150 H 114/81 02/07/22 03:49 97.8 F 128 H 24 114/78 93 L 02/07/22 03:00 180 H 16 101/63 07/13/22 02:00 165 H 16 101/63 92 L 02/07/22 00:00 96.5 F 120 H 16 97/69 95 02/06/22 22:00 110 H 16 94/71 92 L 02/06/22 20:53 91 L 02/06/22 20:00 97.8 F 115 H 16 98/62 92 L 02/06/22 18:00 98 H 12 83/56 02/06/22 15:55 97.8 F 77 12 80/50 93 L 02/06/22 14:45 102 H 88/50 02/06/22 14:00 96 H 12 72/44 02/06/22 13:35 103 H 100/50 Pain Assessment - Last Documented Pain Intensity 6 Pain Scale Used [facility] Intake and Output: Intake & Output 02/05/22 02/06/22 02/07/22 02/08/22 11:59 11:59 11:59 11:59 Intake Total 480 2734 Output Total 300 Balance 180 2734 Weight 69.3 kg 64 kg Lab Results: Lab Results-Last 24 Hours 02/06/22 02/07/22 02/07/22 Range/Units 21:29 04:33 04:33 WBC 10.7 H (4.0-10.5) x10^3/uL RBC 3.00 L (4.1-5.6) x10^6/uL Hgb 8.3 L (12.5-18.0) g/dL Hct 28.7 L (42-50) % MCV 95.7 (78-100) fL MCH 27.7 (26-32) pg MCHC 28.9 L (32-36) g/dL RDW 20.0 H (11.5-14.0) % Plt Count 157 (150-450) x10^3/uL MPV 11.5 H (7.5-11.0) fL Gran % 87.9 H (36.0-66.0) % Immature Gran % (Auto) 0.6 H (0.00-0.4) % Nucleat RBC Rel Count 0.0 (0.00-0.1) % Eos # (Auto) 0.02 (0-0.5) x10^3/uL Immature Gran # (Auto) 0.06 H (0.00-0.03) x10^3u/L Absolute Lymphs (auto) 0.45 L (1.0-4.6) x10^3/uL Absolute Monos (auto) 0.75 (0.0-1.3) x10^3/uL Absolute Nucleated RBC 0.00 (0.00-0.01) x10^3u/L Lymphocytes % 4.2 L (24.0-44.0) % Monocytes % 7.0 (0.0-12.0) % Eosinophils % 0.2 (0.00-5.0) % Basophils % 0.1 (0.0-0.4) % Absolute Granulocytes 9.42 H (1.4-6.9) x10^3/uL Basophils # 0.01 (0-0.4) x10^3/uL Sodium 143 (137-145) mmol/L Potassium 3.9 (3.5-5.1) mmol/L Chloride 115 H (98-107) mmol/L Carbon Dioxide 21 L (22-30) mmol/L Anion Gap 10.9 (5-15) MEQ/L BUN 14 (9-20) mg/dL Creatinine 0.76 (0.66-1.25) mg/dL Estimated GFR > 60.0 ML/MIN Glucose 61 L (74-106) mg/dL POC Glucometer 75 (74 to 106) mg/dL Calcium 7.8 L (8.4-10.2) mg/dL Total Bilirubin 0.60 (0.2-1.3) mg/dL AST 33 (17-59) U/L ALT 13 (0-50) U/L Alkaline Phosphatase 208 H (38-126) U/L Ammonia (9-30) umol/L Serum Total Protein 5.9 L (6.3-8.2) g/dL Albumin 2.0 L (3.5-5.0) g/dL Slides for Path Review YES 02/07/22 02/07/22 02/07/22 Range/Units 07:37 08:20 12:04 WBC (4.0-10.5) x10^3/uL RBC (4.1-5.6) x10^6/uL Hgb (12.5-18.0) g/dL Hct (42-50) % MCV (78-100) fL MCH (26-32) pg MCHC (32-36) g/dL RDW (11.5-14.0) % Plt Count (150-450) x10^3/uL MPV (7.5-11.0) fL Gran % (36.0-66.0) % Immature Gran % (Auto) (0.00-0.4) % Nucleat RBC Rel Count (0.00-0.1) % Eos # (Auto) (0-0.5) x10^3/uL Immature Gran # (Auto) (0.00-0.03) x10^3u/L Absolute Lymphs (auto) (1.0-4.6) x10^3/uL Absolute Monos (auto) (0.0-1.3) x10^3/uL Absolute Nucleated RBC (0.00-0.01) x10^3u/L Lymphocytes % (24.0-44.0) % Monocytes % (0.0-12.0) % Eosinophils % (0.00-5.0) % Basophils % (0.0-0.4) % Absolute Granulocytes (1.4-6.9) x10^3/uL Basophils # (0-0.4) x10^3/uL Sodium (137-145) mmol/L Potassium (3.5-5.1) mmol/L Chloride (98-107) mmol/L Carbon Dioxide (22-30) mmol/L Anion Gap (5-15) MEQ/L BUN (9-20) mg/dL Creatinine (0.66-1.25) mg/dL Estimated GFR ML/MIN Glucose (74-106) mg/dL POC Glucometer 50 L 83 70 L (74 to 106) mg/dL Calcium (8.4-10.2) mg/dL Total Bilirubin (0.2-1.3) mg/dL AST (17-59) U/L ALT (0-50) U/L Alkaline Phosphatase (38-126) U/L Ammonia (9-30) umol/L Serum Total Protein (6.3-8.2) g/dL Albumin (3.5-5.0) g/dL Slides for Path Review 02/07/22 Range/Units 12:10 WBC (4.0-10.5) x10^3/uL RBC (4.1-5.6) x10^6/uL Hgb (12.5-18.0) g/dL Hct (42-50) % MCV (78-100) fL MCH (26-32) pg MCHC (32-36) g/dL RDW (11.5-14.0) % Plt Count (150-450) x10^3/uL MPV (7.5-11.0) fL Gran % (36.0-66.0) % Immature Gran % (Auto) (0.00-0.4) % Nucleat RBC Rel Count (0.00-0.1) % Eos # (Auto) (0-0.5) x10^3/uL Immature Gran # (Auto) (0.00-0.03) x10^3u/L Absolute Lymphs (auto) (1.0-4.6) x10^3/uL Absolute Monos (auto) (0.0-1.3) x10^3/uL Absolute Nucleated RBC (0.00-0.01) x10^3u/L Lymphocytes % (24.0-44.0) % Monocytes % (0.0-12.0) % Eosinophils % (0.00-5.0) % Basophils % (0.0-0.4) % Absolute Granulocytes (1.4-6.9) x10^3/uL Basophils # (0-0.4) x10^3/uL Sodium (137-145) mmol/L Potassium (3.5-5.1) mmol/L Chloride (98-107) mmol/L Carbon Dioxide (22-30) mmol/L Anion Gap (5-15) MEQ/L BUN (9-20) mg/dL Creatinine (0.66-1.25) mg/dL Estimated GFR ML/MIN Glucose (74-106) mg/dL POC Glucometer (74 to 106) mg/dL Calcium (8.4-10.2) mg/dL Total Bilirubin (0.2-1.3) mg/dL AST (17-59) U/L ALT (0-50) U/L Alkaline Phosphatase (38-126) U/L Ammonia < 9 L (9-30) umol/L Serum Total Protein (6.3-8.2) g/dL Albumin (3.5-5.0) g/dL Slides for Path Review Radiology Exams: Radiology Procedures Category Date Time Status ANKLE (3 VIEWS) Routine Exams 02/06/22 08:22 Completed CTA HEAD W AND/OR WO CONTRAST [CT] Stat Exams 02/07/22 13:13 Ordered LOWER LEG Stat Exams 02/06/22 08:22 Completed Multi-Disciplinary Progress Notes: Multi-Disciplinary Progress Notes 02/07/22 12:51 Case Management Note by Huong Rico PER NURSING STAFF- PATIENT LIKELY TRANSFERRING TO HIGH LEVEL OF CARE. WILL HOLD ANY FURTHER CASE MANAGEMENT/DC PLANNING DISCUSSIONS Initialized on 02/07/22 12:51 - END OF NOTE 02/06/22 20:54 Respiratory Note by Manny Otto NURSING CALLED TO STATE THAT PT O2 WAS DROPPING AFTER BEING GIVEN PAIN MEDS AND ATIVAN SO THEY PLACED PT ON 4LPM NC WITH HUMIDITY. I CHECKED PT O2 AND SATS AND PLACED ORDERS. PT RESTING AT THIS TIME. Initialized on 02/06/22 20:54 - END OF NOTE Assessment/Plan (1) Cellulitis of right leg Status: Acute Code(s): L03.115 - CELLULITIS OF RIGHT LOWER LIMB (2) Hypotension Status: Acute Code(s): I95.9 - HYPOTENSION, UNSPECIFIED (3) Tachycardia Status: Acute Code(s): R00.0 - TACHYCARDIA, UNSPECIFIED (4) Type 2 diabetes mellitus Status: Chronic Qualifiers: Diabetes mellitus mcc insulin use: without mcc use Diabetes mellitus complication status: without complication Qualified Code(s): E11.9 - Type 2 diabetes mellitus without complications (5) Colon cancer metastasized to bone Status: Chronic Code(s): C18.9 - MALIGNANT NEOPLASM OF COLON, UNSPECIFIED; C79.51 - SECONDARY MALIGNANT NEOPLASM OF BONE (6) HTN (hypertension) Status: Acute Qualifiers: Hypertension type: primary hypertension Qualified Code(s): I10 - Essential (primary) hypertension Code(s): I10 - ESSENTIAL (PRIMARY) HYPERTENSION
[2022-02-07] MEDS: Hydromorphone 1 mg/ml Injection IV PRN ×2 (13:40→16:59)
--- NOTE | 2022-02-07 14:38 | XRAY ---
Indication: Cancer patient with change in mental status. Initial CT head was performed without contrast. Conventional contrast enhanced CTA head performed using 100 cc Isovue 370 contrast. Two-dimensional sagittal and coronal reformatted images obtained. Additional 3-dimensional reformatted images obtained using a separate workstation. Comparison: None Distal internal carotid arteries are bilaterally symmetric with mild scattered arteriosclerotic calcifications involving the parasellar segments. No critical stenosis, obstruction, or AV malformation. Normal carotid terminus with normal branching A1 and M1 segments bilaterally. More distal anterior cerebral and middle cerebral arteries are normal in CTA appearance. Posterior circulation demonstrates normal CTA appearance to the left/right distal vertebral, basilar, left/right posterior cerebral, and left/right superior cerebellar arteries. Venous drainage/sinuses are unremarkable. CT head without contrast exam demonstrates age-appropriate global atrophy and mild periventricular degenerative micro-ischemia bilaterally. No acute intracranial hemorrhage, abnormal extra-axial fluid collection, or mass effect. Fourth ventricle is midline without hydrocephalus. CTA head images are negative for abnormal enhancing intra or extra-axial mass. Bony calvarium intact. Visualized paranasal sinuses and mastoid air cells are clear. Impression: 1. Atrophy and degenerative micro-ischemia within normal limits for patient's age. 2. Remaining CT head with and without contrast exam is negative. 3. CTA head demonstrates mild arteriosclerotic calcifications in both parasellar internal carotid arteries without critical stenosis/obstruction. Remaining CTA head with contrast exam is negative.
[2022-02-07] MEDS ORDERED: PIPERACILLIN/TAZOBACTAM 3.375 GM in Sodium Chloride 100ML MINI-BAG PLUS 100 ML IV SCH (16:00)
[2022-02-07 16:11] VITALS: BP 120/71; PULSE 118; O2SAT 98
[2022-02-08] MEDS ORDERED: TROUGH DRUG LEVELS IJ ONE (09:30)
[2022-02-26] MEDS ORDERED: Cyanocobalamin B-12 1000 MCG/ML SQ SCH (10:00)
== END 2022-02-07 17:10 | disposition home or self-care (01) ==
LOC: ED 11:18 → MED SURG 15:38 → ICU 02-06 07:06
PROVIDERS: ADMIT Family Medicine; ATTEND Family Medicine
DX: I95.9 Hypotension, unspecified (principal); L03.115 Cellulitis of right lower limb; R00.0 Tachycardia, unspecified; E11.9 Type 2 diabetes mellitus without complications; C18.9 Malignant neoplasm of colon, unspecified; C79.51 Secondary malignant neoplasm of bone; I48.91 Unspecified atrial fibrillation; L89.152 Pressure ulcer of sacral region, stage 2; I10 Essential (primary) hypertension; M25.571 Pain in right ankle and joints of right foot; E86.0 Dehydration; E87.70 Fluid overload, unspecified; I87.2 Venous insufficiency (chronic) (peripheral); L03.125 Acute lymphangitis of right lower limb; S30.810A Abrasion of lower back and pelvis, initial encounter; Z79.899 Other long term (current) drug therapy; Z20.828 Contact with and (suspected) exposure to other viral communicable diseases
CPT/HCPCS: 0241U; 29580; 36000; 36415; 70496; 71045; 73590; 73610; 80048; 80053; 81015; 82140; 82947; 83605; 83735; 83880; 84134; 84484; 85025; 87040; 87077; 87186; 93005; 93041; 93268; 93971; 94760; 94762; 96360; 96365; 99222; 99285; G0378; J0696; J1170; J1650; J2060; J2270; J3370; A9270-GY